=== PATIENT | male | born 1955 | race Caucasian/White ===

== ENCOUNTER 2021-02-18 21:41 | Inpatient (IN) ==
[2021-02-18 22:23] LABS: Basophils # (auto) 0.02 K/uL (0-0.2); Basophils % (auto) 0.2 %; Eosinophils # (auto) 0.11 K/uL (0-0.5); Eosinophils % (auto) 0.9 %; Hematocrit (blood only) 46.5 % (42-52); Hemoglobin 16.3 g/dL (14.0-18.0); Immature Granulocytes # (auto) 0.06 K/uL (0.00-0.02); Immature Granulocytes % (auto) 0.5 %; Lymphocytes # (auto) 1.42 K/uL (1.2-3.4); Lymphocytes % (auto) 12.1 %; Mean Corpuscular Hemoglobin 32.4 pg (25-34); Mean Corpuscular Hgb Conc 35.1 g/dL (32-36); Mean Corpuscular Volume 92.4 fL (80-100); Mean Platelet Volume 10.8 fL (7.4-10.4); Monocytes # (auto) 0.84 K/uL (0.11-0.59); Monocytes % (auto) 7.2 %; Neutrophils # (auto) 9.28 K/uL (1.4-6.5); Neutrophils % (auto) 79.1 %; Platelet Count 177 K/uL (130-400); RDW Standard Deviation 43.3 fL (36.4-46.3); Red Blood Count 5.03 M/uL (4.7-6.1); White Blood Count 11.73 K/uL (4.8-10.8)
[2021-02-18] MEDS ORDERED: SODIUM CHLORIDE 0.9% 1000ML 1,000 ML IV ONE (22:23)
[2021-02-18] MEDS ORDERED: ACETAMINOPHEN 500 MG TAB PO STA (22:23)
[2021-02-18] MEDS ORDERED: cefTRIAXone SODIUM 2,000 MG/70 ML BAG IV STA (22:25)
[2021-02-18 22:46] LABS: Alanine Aminotransferase 32 U/L (12-78); Albumin Level 3.5 gm/dl (3.4-5.0); Aspartate Aminotransferase 12 U/L (15-37); BUN Creatinine Ratio 13.2 (10-20); Blood Urea Nitrogen 23 mg/dl (7-18); Calcium 9.5 mg/dl (8.5-10.1); Carbon Dioxide 21 mmol/L (21-32); Chloride 106 mmol/L (98-107); Creatinine Clr Calc Pharmacy 59.8 ml/min; Est GFR (African American) 47.3 ml/min; Est GFR (Non-African American) 40.8 ml/min; Glucose 247 mg/dl (70-99); Magnesium 1.7 mg/dl (1.8-2.4); Potassium 4.4 mmol/L (3.5-5.1); Sodium 135 mmol/L (136-145)
[2021-02-18 22:51] LABS: Albumin Globulin Ratio 0.9 (0.9-2); Alkaline Phosphatase 38 U/L (45-117); Bilirubin,Total 0.5 mg/dl (0.2-1); Globulin 3.8 gm/dl (2.5-4.0); Total Protein 7.3 gm/dl (6.4-8.2); Troponin I < 0.015 ng/ml (0-0.045)
[2021-02-18 23:29] LABS: INR 1.1 (0.9-1.1); Partial Thromboplastin Ratio 1.1; Partial Thromboplastin Time 28.5 Seconds (21.0-31.0); Prothrombin Time 11.3 Seconds (9.0-12.0)
[2021-02-19] MEDS ORDERED: DOXYCYCLINE HYCLATE 100 MG in DEXTROSE 5% 100 ML IV STA (00:16)
[2021-02-19] MEDS ORDERED: MAGNESIUM SULFATE / D5W 1 GM/100 ML BAG IV STA (00:30)
--- NOTE | 2021-02-19 01:05 | History & Physical Report ---
Date of Service February 19, 2021 Assessment & Plan (1) History of colon polyps: (2) Sepsis: Plan: Secondary to recurrent LLE cellulitis Rule out osteomyelitis hx COPD, chronic cough symptoms as per patient hypertension, elevated secondary to illness hyperlipidemia on statin Rx DM2 on oral medications, suboptimal control as of recent hemoglobin A1c of 8.15 January 2021 hypothyroidism, euthyroid as of recent outpatient TSH CRI, creatinine better than baseline past tobacco abuse Medical telemetry CS, Doxycycline for now given risk factors for MRSA Local measures for cellulitis Follow official CT left lower leg May need dedicated MRI of left lower leg to rule out osteomyelitis Basal insulin, ISS BG goal 1 10-1 40, carb count coverage DVT prophylaxis. Heparin subcu Full code Patient's requesting update providers. Lanette Seng , contact #[phone]. Text document was generated using [email or web address] voice recognition software. It may contain grammatical or spelling errors. Kindly contact undersigned for clarification of any documentation item in question. History of Present Illness Chief Complaint: Recurrent left leg swelling Primary Care Provider: Max Rosario MD History obtained from patient, family, and records. Medical history significant for COPD, ROWDY on CPAP, hypertension, hyperlipidemia, essential tremor, DM2 on oral medications, hypothyroidism, CRI (baseline creatinine 2), past tobacco abuse. Last confinement December 2015 for UGI B secondary to gastric ulcers. Patient discharged on PPI. Patient sustained crush injury on left calf a week ago. Left lower leg crushed between 2 mowers as per patient. Outpatient ultrasound negative for DVT. Patient prescribed Bactrim and mupirocin for left leg cellulitis. Left lower leg swelling improved but was never fully resolved as per patient. 2 days ago, patient noted sudden redness, swelling of left lower leg without chest pain, S OB. No recent trauma. Fever chills noted last night. Patient brought to the ER by . IV ceftriaxone given at the ER for sepsis. 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 Allergies Allergy/AdvReac Type Severity Reaction Status Date / Time atenolol Allergy Intermediate turns Verified 02/19/21 01:42 bright yellow Home Medications Medication Instructions Recorded Confirmed Type albuterol sulfate 90 mcg/actuation 2 puff INHALATION Q4 PRN 02/01/19 02/19/21 History aerosol inhaler alprostadil 40 mcg intracavernosal 40 mcg INTRA-CAVERNOSAL UD PRN 02/01/19 02/19/21 History solution (Caverject) amlodipine 5 mg tablet 5 mg PO HS 02/01/19 02/19/21 History aspirin 81 mg tablet,delayed 81 mg PO QAM 02/01/19 02/19/21 History release atorvastatin 40 mg tablet 40 mg PO HS 02/01/19 02/19/21 History budesonide-formoterol HFA 80 2 puff INHALATION BID 02/01/19 02/19/21 History mcg-4.5 mcg/actuation aerosol inhaler dulaglutide 1.5 mg/0.5 mL 1.5 mg SUBCUT WK 02/01/19 02/19/21 History subcutaneous pen injector (Trulicity) finasteride 5 mg tablet 5 mg PO QAM 02/01/19 02/19/21 History glimepiride 4 mg tablet 4 mg PO QAM 02/01/19 02/19/21 History levothyroxine 50 mcg tablet 50 mcg PO QAM 02/01/19 02/19/21 History lisinopril 40 mg tablet 40 mg PO HS 02/01/19 02/19/21 History omega 6-vul-pwn-fish oil 60 mg-90 1 cap PO QAM 02/01/19 02/19/21 History mg-500 mg capsule (Fish Oil) pioglitazone 30 mg tablet 30 mg PO QAM 02/01/19 02/19/21 History prednisone 20 mg tablet 40 mg PO UD PRN 02/01/19 02/19/21 History sildenafil (pulm.hypertension) 20 40 - 60 mg PO UD PRN MDD 1dose 02/01/19 02/19/21 History mg tablet (Revatio) tamsulosin 0.4 mg capsule 0.4 mg PO QAM 02/01/19 02/19/21 History testosterone cypionate 200 mg/mL 200 mg IM .EVERY 14 DAYS 02/01/19 02/19/21 History intramuscular kit torsemide 100 mg tablet 50 mg PO Q OTHER DAY 02/01/19 02/19/21 History tramadol 50 mg tablet 50 mg PO Q8 PRN 02/01/19 02/19/21 History ascorbic acid (vitamin C) 1,000 mg 1 g PO DAILY 02/19/21 02/19/21 History tablet fenofibrate 54 mg tablet 54 mg PO DAILY 02/19/21 02/19/21 History sodium chloride 0.65 % nasal spray 2 spray INTRANASAL UD PRN 02/19/21 02/19/21 History aerosol (Saline Mist) Past Med/Surg History Medical History BPH (benign prostatic hyperplasia) Chronic obstructive pulmonary disease Diabetes mellitus, type 2 Hearing deficit History of bleeding ulcers History of colon polyps Hyperlipidemia Hypertension Hypothyroidism Sleep apnea cpap Tremor of left hand Surgical History History of colonoscopy History of esophagogastroduodenoscopy (EGD) History of tooth extraction Hx of vasectomy Status post LASIK surgery of both eyes Family History Grandmother (Maternal) Family history of diabetes mellitus Other No family history of adverse response to anesthesia Social History Smoking Status: Former smoker Tobacco Type: Cigarettes Second Hand Exposure: Yes (parents smoked); Hx Alcohol Use: No Hx Substance Use: No Preferred Language: Argentine Communication Ability: Effective Mill[place] Helper Required: No Beliefs That Will Affect Care: None Current Living Situation: Spouse and Family Current Living Situation Comment: Lives with and 2 children Other Information That Helps Us Care for You: No Feels Safe at Home: Yes Safety Concerns: Feels Safe At This Time Assistive Devices: CPAP and Glasses Review of Systems Review of Systems: As per HPI, all 10 systems reviewed, all other ROS negative Physical Exam Physical Exam: GENERAL: uncomfortable, pleasant, morbidly obese, no respiratory distress SKIN: normal color, warm HEENT: [place] palpebral conjunctivae, no ptosis, dry buccal mucosa NECK : Supple, short neck, no tenderness CHEST : Decreased breath sounds, no tenderness HEART : Tachycardic, no obvious murmurs ABDOMEN: Marked distention, nontender EXTREMITIES : Tender induration RLE with some crusting, no other conspicuous deformities noted NEUROLOGIC : Coherent, no facial asymmetry, no other gross focality Results & Data Results & Data ([facility]) Vital Signs (Past 12 Hours) Vital Signs Temp Pulse Resp BP Pulse Ox 02/19/21 00:41 37.7 C H 02/19/21 00:30 108 H 21 142/75 H 94 02/18/21 23:30 37.9 C H 111 H 23 107/75 93 02/18/21 21:47 38.3 C H 127 H 28 H 166/80 H 95 Laboratory Results Laboratory Results WBC 11.73 K/uL (4.8-10.8) H 02/18/21 22:05 RBC 5.03 M/uL (4.7-6.1) 02/18/21 22:05 Hgb 16.3 g/dL (14.0-18.0) 02/18/21 22:05 Hct 46.5 % (42-52) 02/18/21 22:05 MCV 92.4 fL (80-100) 02/18/21 22:05 MCH 32.4 pg (25-34) 02/18/21 22:05 MCHC 35.1 g/dL (32-36) 02/18/21 22:05 RDW Std Deviation 43.3 fL (36.4-46.3) 02/18/21 22:05 RDW Coeff of [place]quel 13.0 % (11.5-14.5) 02/18/21 22:05 Plt Count 177 K/uL (130-400) 02/18/21 22:05 MPV 10.8 fL (7.4-10.4) H 02/18/21 22:05 Immature Gran % (Auto) 0.5 % 02/18/21 22:05 Neut % (Auto) 79.1 % 02/18/21 22:05 Lymph % (Auto) 12.1 % 02/18/21 22:05 [place] % (Auto) 7.2 % 02/18/21 22:05 Eos % (Auto) 0.9 % 02/18/21 22:05 Baso % (Auto) 0.2 % 02/18/21 22:05 Neut # (Auto) 9.28 K/uL (1.4-6.5) H 02/18/21 22:05 Lymph # (Auto) 1.42 K/uL (1.2-3.4) 02/18/21 22:05 [place] # (Auto) 0.84 K/uL (0.11-0.59) H 02/18/21 22:05 Eos # (Auto) 0.11 K/uL (0-0.5) 02/18/21 22:05 Baso # (Auto) 0.02 K/uL (0-0.2) 02/18/21 22:05 Immature Gran # (Auto) 0.06 K/uL (0.00-0.02) H 02/18/21 22:05 PT 11.3 Seconds (9.0-12.0) 02/18/21 23:04 INR 1.1 (0.9-1.1) 02/18/21 23:04 APTT 28.5 Seconds (21.0-31.0) 02/18/21 23:04 PTT Ratio 1.1 02/18/21 23:04 Sodium 135 mmol/L (136-145) L 02/18/21 22:05 Potassium 4.4 mmol/L (3.5-5.1) 02/18/21 22:05 Chloride 106 mmol/L (98-107) 02/18/21 22:05 Carbon Dioxide 21 mmol/L (21-32) 02/18/21 22:05 Anion Gap 8.0 (3-11) 02/18/21 22:05 BUN 23 mg/dl (7-18) H 02/18/21 22:05 Creatinine 1.74 mg/dl (0.6-1.4) H 02/18/21 22:05 Est Cr Clr Drug Dosing 59.8 ml/min 02/18/21 22:05 Est GFR ( Amer) 47.3 ml/min 02/18/21 22:05 Est GFR (Non-Af Amer) 40.8 ml/min 02/18/21 22:05 BUN/Creatinine Ratio 13.2 (10-20) 02/18/21 22:05 Glucose 247 mg/dl (70-99) H 02/18/21 22:05 Lactate 1.9 mmol/L (0.4-2.0) 02/18/21 23:04 Calcium 9.5 mg/dl (8.5-10.1) 02/18/21 22:05 Magnesium 1.7 mg/dl (1.8-2.4) L 02/18/21 22:05 Total Bilirubin 0.5 mg/dl (0.2-1) 02/18/21 22:05 AST 12 U/L (15-37) L 02/18/21 22:05 ALT 32 U/L (12-78) 02/18/21 22:05 Alkaline Phosphatase 38 U/L (45-117) L 02/18/21 22:05 Troponin I < 0.015 ng/ml (0-0.045) 02/18/21 22:05 Total Protein 7.3 gm/dl (6.4-8.2) 02/18/21 22:05 Albumin 3.5 gm/dl (3.4-5.0) 02/18/21 22:05 Globulin 3.8 gm/dl (2.5-4.0) 02/18/21 22:05 Albumin/Globulin Ratio 0.9 (0.9-2) 02/18/21 22:05 COVID-19 Eval Order Covid19 at [facility] 02/18/21 22:40 SARS-CoV-2 (PCR) NEGATIVE (Negative) 02/18/21 22:40 Diagnostic Findings LLE venous ultrasound initial read: No evidence of DVT CT left tibia/fibula initial read: Subcutaneous soft tissue edema suggestive of venous insufficiencyor cellulitis. No fluid collection or soft tissue gas. Chest x-ray as per my interpretation cardiomegaly EKG as per my interpretation : Rate 125, sinus tachycardia, normal axis, T wave abnormalities inferior leads
[2021-02-19] MEDS ORDERED: INSULIN GLARGINE SOLOSTAR 100 UNITS/ML 3 ML PEN SC STA (01:09)
--- NOTE | 2021-02-19 01:21 | Emergency Department Note ---
History of Present Illness General Chief complaint: Swelling/Edema to Extremity Stated complaint: SWOLLEN L LEG Time Seen by Provider: 02/18/21 22:11 History of Present Illness Maximum Pain Intensity: 10 This 65-year-old presents to the ER complaining of left lower leg cellulitis with fever Location: Left lower leg Quality: Painful Severity: Moderate Duration: Past 2 days Timing: Started few days ago Context: Patient was concerned and came in Modifying factors: better with rest; worse with activity Patient denies chest pain, dyspnea, abdominal pain, vomiting, diarrhea. Home Medications Medication Instructions Recorded Confirmed Type albuterol sulfate 90 mcg/actuation 2 puff INHALATION Q4 PRN 02/01/19 02/07/19 History aerosol inhaler alprostadil 40 mcg intracavernosal 40 mcg INTRA-CAVERNOSAL UD PRN 02/01/19 02/01/19 History solution (Caverject) amlodipine 5 mg tablet 5 mg PO HS 02/01/19 02/07/19 History ascorbic acid (vitamin C) 500 mg 1,000 mg PO QAM 02/01/19 02/07/19 History tablet (Vitamin C) aspirin 81 mg tablet,delayed 81 mg PO QAM 02/01/19 02/07/19 History release atorvastatin 40 mg tablet 40 mg PO HS 02/01/19 02/07/19 History budesonide-formoterol HFA 80 2 puff INHALATION BID 02/01/19 02/01/19 History mcg-4.5 mcg/actuation aerosol inhaler clobetasol 0.05 % topical cream 1 applic TOPICAL DAILY PRN 02/01/19 02/07/19 History dulaglutide 1.5 mg/0.5 mL 1.5 mg SUBCUT WK 02/01/19 02/07/19 History subcutaneous pen injector (Trulicity) fenofibrate micronized 134 mg 134 mg PO QAM 02/01/19 02/07/19 History capsule finasteride 5 mg tablet 5 mg PO QAM 02/01/19 02/07/19 History glimepiride 4 mg tablet 4 mg PO QAM 02/01/19 02/07/19 History levothyroxine 50 mcg tablet 50 mcg PO QAM 02/01/19 02/07/19 History lisinopril 40 mg tablet 40 mg PO HS 02/01/19 02/07/19 History mometasone 50 mcg/actuation nasal 2 spray INTRANASAL DAILY PRN 02/01/19 02/07/19 History spray omega 6-box-chy-fish oil 60 mg-90 1 cap PO QAM 02/01/19 02/07/19 History mg-500 mg capsule (Fish Oil) omeprazole 40 mg capsule,delayed 40 mg PO QAM 02/01/19 02/07/19 History release pioglitazone 30 mg tablet 30 mg PO QAM 02/01/19 02/07/19 History prednisone 20 mg tablet 40 mg PO UD PRN 02/01/19 02/07/19 History sildenafil (pulm.hypertension) 20 20 mg PO UD PRN 02/01/19 02/01/19 History mg tablet (Revatio) tamsulosin 0.4 mg capsule 0.4 mg PO QAM 02/01/19 02/07/19 History testosterone cypionate 200 mg/mL 200 mg IM UD 02/01/19 02/07/19 History intramuscular kit torsemide 100 mg tablet 100 mg PO Q OTHER DAY 02/01/19 02/07/19 History tramadol 50 mg tablet 50 mg PO Q6H PRN 02/01/19 02/01/19 History Allergies Allergy/AdvReac Type Severity Reaction Status Date / Time atenolol Allergy Intermediate turns Verified 02/07/19 10:42 bright yellow Past Med/Surg History Medical History BPH (benign prostatic hyperplasia) Chronic obstructive pulmonary disease Diabetes mellitus, type 2 Hearing deficit History of bleeding ulcers History of colon polyps Hyperlipidemia Hypertension Hypothyroidism Sleep apnea cpap Tremor of left hand Surgical History History of colonoscopy History of esophagogastroduodenoscopy (EGD) History of tooth extraction Hx of vasectomy Status post LASIK surgery of both eyes Family History Grandmother (Maternal) Family history of diabetes mellitus Other No family history of adverse response to anesthesia Social History Smoking Status: Former smoker Tobacco Type: Cigarettes Second Hand Exposure: Yes (parents smoked); Hx Alcohol Use: Yes Alcohol type: beer Hx Substance Use: No Preferred Language: Syriac Communication Ability: Effective 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 Beliefs That Will Affect Care: None Current Living Situation: Spouse and Family Current Living Situation Comment: Lives with and 2 children Feels Safe at Home: Yes Assistive Devices: CPAP and Glasses Review of Systems A total of 10 systems reviewed and were otherwise negative Physical Exam Vital Signs Vital Signs - 24 hr 02/18/21 21:47 02/18/21 23:30 02/19/21 00:30 Temperature 38.3 C H 37.9 C H Temperature Source Temporal Artery Scan Oral Pulse Rate 127 H 111 H 108 H Respiratory Rate 28 H 23 21 Blood Pressure 166/80 H 107/75 142/75 H Blood Pressure Mean 108 85 97 Pulse Oximetry 95 93 94 Oxygen Delivery Method Room Air Sepsis Recent Fever Within 48 Hours Yes Sepsis New/Unexplained Change in Mental Status No Sepsis Action Taken by Nursing Physician Notified 02/19/21 00:41 Temperature 37.7 C H Temperature Source Oral Pulse Rate Respiratory Rate Blood Pressure Blood Pressure Mean Pulse Oximetry Oxygen Delivery Method Sepsis Recent Fever Within 48 Hours Sepsis New/Unexplained Change in Mental Status Sepsis Action Taken by Nursing VITALS: Vitals are noted on the nurse's note and reviewed by myself. Vital signs febrile. GENERAL: Pleasant male mildly ill-appearing, in no acute distress, non diaphoretic, well-developed well-nourished. SKIN: Left lower leg cellulitis, the rest of the skin was without rashes, erythema, edema, or bruising. There is no tenting of the skin. Capillary reflex less than 2 seconds. HEAD: Normocephalic atraumatic. EARS: External auditory canals clear, EYES: Pupils equal round and reactive to light and accommodation. Conjunctivae without injection, sclerae without icterus. Extraocular movements intact. NOSE: Patent, turbinates without inflammation or discharge. MOUTH: Mucous membranes moist. Pharynx without erythema or exudate. Uvula midline. Airway patent. Tongue does not deviate. NECK: Supple without nuchal rigidity. No lymphadenopathy. No thyromegaly. Cervical spine is nontender. No JVD. HEART: Regular rate and rhythm LUNGS: Clear to auscultation bilaterally without wheezes, rales or rhonchi. No retractions or accessory muscle use. ABDOMEN: Positive bowel sounds x 4. Normal tympanic percussion. Soft, nontender, without masses or organomegaly. Flores sign negative. No guarding or rebound tenderness. No CVA tenderness MUSCULOSKELETAL: No muscle atrophy, noted. Left lower leg cellulitis. NEURO: Patient was alert and oriented to person place and time. Normal sensation to light and sharp touch. No focal neurological deficits. Course Administered Medications Doxycycline Hyclate 100 mg/ (Dextrose) 110 mls @ 50 mls/hr IV NOW STA Stop: 02/19/21 02:27 Last Admin: 02/19/21 00:38 Dose: 50 mls/hr Documented by: [id number] Magnesium Sulfate/Dextrose (Magnesium Sulfate / D5w) 1 gm in 100 mls @ 50 mls/h r IV ONE STA Stop: 02/19/21 02:29 Last Admin: 02/19/21 00:38 Dose: 50 mls/hr Documented by: [id number] Discontinued Medications Acetaminophen (Acetaminophen 500 Mg Tab) 1,000 mg PO NOW STA Stop: 02/18/21 22:24 Last Admin: 02/18/21 22:33 Dose: 1,000 mg Documented by: [id number] Sodium Chloride (Nss 1000ml) 1,000 mls @ 999 mls/hr IV .Q1H1M ONE Stop: 02/18/21 23:23 Last Infusion: 02/18/21 23:33 Dose: 0 mls/hr Documented by: [id number] Admin: 02/18/21 22:33 Dose: 999 mls/hr Documented by: [id number] Ceftriaxone Sodium (Rocephin) 2,000 mg in 70 mls @ 140 mls/hr IV NOW STA Stop: 02/18/21 22:54 Last Infusion: 02/18/21 23:30 Dose: 0 mls/hr Documented by: [id number] Infusion: 02/18/21 23:15 Dose: 140 mls/hr Documented by: [id number] Infusion: 02/18/21 22:49 Dose: 0 mls/hr Documented by: [id number] Admin: 02/18/21 22:35 Dose: 140 mls/hr Documented by: [id number] Medical Decision Making Medical Records Attestation: I reviewed the patient's medical records. Home Medications Current Medication List: was personally reviewed by me Laboratory Data Attestation: I reviewed the patient's lab results. Result diagrams: 02/18/21 22:05 02/18/21 22:05 Lab Results 02/18/21 02/18/21 02/18/21 Range/Units 22:05 22:05 22:40 WBC 11.73 H (4.8-10.8) K/uL RBC 5.03 (4.7-6.1) M/uL Hgb 16.3 (14.0-18.0) g/dL Hct 46.5 (42-52) % MCV 92.4 (80-100) fL MCH 32.4 (25-34) pg MCHC 35.1 (32-36) g/dL RDW Std Deviation 43.3 (36.4-46.3) fL RDW Coeff of Racquel 13.0 (11.5-14.5) % Plt Count 177 (130-400) K/uL MPV 10.8 H (7.4-10.4) fL Immature Gran % (Auto) 0.5 % Neut % (Auto) 79.1 % Lymph % (Auto) 12.1 % Archuleta % (Auto) 7.2 % Eos % (Auto) 0.9 % Baso % (Auto) 0.2 % Neut # (Auto) 9.28 H (1.4-6.5) K/uL Lymph # (Auto) 1.42 (1.2-3.4) K/uL Archuleta # (Auto) 0.84 H (0.11-0.59) K/uL Eos # (Auto) 0.11 (0-0.5) K/uL Baso # (Auto) 0.02 (0-0.2) K/uL Immature Gran # (Auto) 0.06 H (0.00-0.02) K/uL PT (9.0-12.0) Seconds INR (0.9-1.1) APTT (21.0-31.0) Seconds PTT Ratio Sodium 135 L (136-145) mmol/L Potassium 4.4 (3.5-5.1) mmol/L Chloride 106 (98-107) mmol/L Carbon Dioxide 21 (21-32) mmol/L Anion Gap 8.0 (3-11) BUN 23 H (7-18) mg/dl Creatinine 1.74 H (0.6-1.4) mg/dl Est Cr Clr Drug Dosing 59.8 ml/min Est GFR ( Amer) 47.3 ml/min Est GFR (Non-Af Amer) 40.8 ml/min BUN/Creatinine Ratio 13.2 (10-20) Glucose 247 H (70-99) mg/dl Lactate (0.4-2.0) mmol/L Calcium 9.5 (8.5-10.1) mg/dl Magnesium 1.7 L (1.8-2.4) mg/dl Total Bilirubin 0.5 (0.2-1) mg/dl AST 12 L (15-37) U/L ALT 32 (12-78) U/L Alkaline Phosphatase 38 L (45-117) U/L Troponin I < 0.015 (0-0.045) ng/ml Total Protein 7.3 (6.4-8.2) gm/dl Albumin 3.5 (3.4-5.0) gm/dl Globulin 3.8 (2.5-4.0) gm/dl Albumin/Globulin Ratio 0.9 (0.9-2) COVID-19 Eval Order Covid19 at [facility] SARS-CoV-2 (PCR) (Negative) 02/18/21 02/18/21 02/18/21 Range/Units 22:40 23:04 23:04 WBC (4.8-10.8) K/uL RBC (4.7-6.1) M/uL Hgb (14.0-18.0) g/dL Hct (42-52) % MCV (80-100) fL MCH (25-34) pg MCHC (32-36) g/dL RDW Std Deviation (36.4-46.3) fL RDW Coeff of Racquel (11.5-14.5) % Plt Count (130-400) K/uL MPV (7.4-10.4) fL Immature Gran % (Auto) % Neut % (Auto) % Lymph % (Auto) % Archuleta % (Auto) % Eos % (Auto) % Baso % (Auto) % Neut # (Auto) (1.4-6.5) K/uL Lymph # (Auto) (1.2-3.4) K/uL Archuleta # (Auto) (0.11-0.59) K/uL Eos # (Auto) (0-0.5) K/uL Baso # (Auto) (0-0.2) K/uL Immature Gran # (Auto) (0.00-0.02) K/uL PT 11.3 (9.0-12.0) Seconds INR 1.1 (0.9-1.1) APTT 28.5 (21.0-31.0) Seconds PTT Ratio 1.1 Sodium (136-145) mmol/L Potassium (3.5-5.1) mmol/L Chloride (98-107) mmol/L Carbon Dioxide (21-32) mmol/L Anion Gap (3-11) BUN (7-18) mg/dl Creatinine (0.6-1.4) mg/dl Est Cr Clr Drug Dosing ml/min Est GFR ( Amer) ml/min Est GFR (Non-Af Amer) ml/min BUN/Creatinine Ratio (10-20) Glucose (70-99) mg/dl Lactate 1.9 (0.4-2.0) mmol/L Calcium (8.5-10.1) mg/dl Magnesium (1.8-2.4) mg/dl Total Bilirubin (0.2-1) mg/dl AST (15-37) U/L ALT (12-78) U/L Alkaline Phosphatase (45-117) U/L Troponin I (0-0.045) ng/ml Total Protein (6.4-8.2) gm/dl Albumin (3.4-5.0) gm/dl Globulin (2.5-4.0) gm/dl Albumin/Globulin Ratio (0.9-2) COVID-19 Eval Order SARS-CoV-2 (PCR) NEGATIVE (Negative) Imaging Data Attestation: I personally reviewed and interpreted this imaging study as follow s: MDM Narrative Prior records/ancillary studies reviewed. Triage Nursing notes reviewed. Additional history obtained from nursing. The patient's history was concerning for fever. Differential diagnosis: Etiologies such as viral syndrome, otitis, pharyngitis, pneumonia, influenza, meningitis, urinary tract infection, sepsis, bacteremia, as well as others were entertained. Physical examination: As above ER treatment provided: An order was placed for continuous cardiac monitoring. The monitor shows a rate of 60-1 50 with a sinus rhythm. IV fluids, Rocephin, Tylenol On reassessment the patient felt better. Diagnostics interpreted by me: ECG: Ordered for tachycardia EKG: Normal sinus, T wave inversions in the inferior leads, poor baseline, rate of 125. Impression sinus tachycardia with T wave inversions the inferior leads interpreted by myself I think arrhythmia is unlikely. EKG shows no interval abnormalities such as QT prolongation or WPW. There are no findings to suggest Brugada syndrome. Cardiac monitoring in the emergency department reveals no tachycardic or bradycardic dysrhythmia. Hypertrophic cardiomyopathy was considered but there are no clear historical elements pointing toward this. EKG is not suggestive. The QRS voltage is not extremely large and there are no suggestive Q waves. The labs revealed leukocytosis, negative Covid, blood cultures pending Imaging studies: Ultrasound negative for DVT Chest x-ray with no acute consolidation, pneumothorax or free air per my tribulation Consultation: A consultation was placed with Dr. Juarez. The case was discussed and diagnostics were reviewed. The patient was evaluated in the ER for further treatment. This appears to be consistent with left lower leg cellulitis who is febrile. Patient started antibiotics. Medicine was consulted. He will be evaluated for admission. Ultrasound was negative for DVT.. By the evaluation outlined above emergent etiologies such as otitis, pharyngitis, pneumonia, meningitis, urinary tract infection, sepsis, bacteremia, as well as others were deemed relatively unlikely. The pt informed about the findings as listed above. All questions were answered and pleased with the treatment. The chart was completed utilizing [employer] Speech voice recognition software. Grammatical errors, random word insertions, pronoun errors, and incomplete sentences are an occassional consequence of this system due to software limitations, ambient noise, and hardware issues. Any formal questions or concerns about the content, text, or information contained within the body of this dictation should be directly addressed to the physician diet assistant for clarification. Impression & Plan Cellulitis of left leg Discharge Plan Visit Data Chief Complaint: Swelling/Edema to Extremity Stated Complaint: SWOLLEN L LEG ED Provider: Rod Solorzano ED Midlevel Provider: Lauren Sierra Discharge Problem: Cellulitis of left leg Patient Disposition: Admitted As Inpatient Condition: Fair Forms Stand Alone Forms: My [facility] [employer] Prescriptions Prescriptions: No Action atorvastatin 40 mg Tablet 40 mg PO HS RF: 0 prednisone 20 mg Tablet 40 mg PO UD PRN (Reason: copd rescue kit) RF: 0 clobetasol 0.05 % Cream 1 applic TOPICAL DAILY PRN (Reason: Rash) RF: 0 amlodipine 5 mg Tablet 5 mg PO HS RF: 0 omeprazole 40 mg Capsule,Delayed Release(Dr/Ec) 40 mg PO QAM RF: 0 aspirin 81 mg Tablet,Delayed Release (Dr/Ec) 81 mg PO QAM RF: 0 tramadol 50 mg Tablet 50 mg PO Q6H PRN (Reason: Pain) RF: 0 fenofibrate micronized 134 mg Capsule 134 mg PO QAM RF: 0 torsemide 100 mg Tablet 100 mg PO Q OTHER DAY RF: 0 ascorbic acid (vitamin C) [Vitamin C] 500 mg Tablet 1,000 mg PO QAM RF: 0 Caverject 40 mcg Recon Soln 40 mcg INTRA-CAVERNOSAL UD PRN (Reason: Sexual Activity) RF: 0 tamsulosin 0.4 mg Capsule 0.4 mg PO QAM RF: 0 levothyroxine 50 mcg Tablet 50 mcg PO QAM RF: 0 glimepiride 4 mg Tablet 4 mg PO QAM RF: 0 mometasone 50 mcg/actuation Nerinx,Non-Aerosol 2 spray INTRANASAL DAILY PRN (Reason: Nasal Congestion) RF: 0 albuterol sulfate 90 mcg/actuation Hfa Aerosol Inhaler 2 puff INHALATION Q4 PRN (Reason: Shortness Of Breath) RF: 0 pioglitazone 30 mg Tablet 30 mg PO QAM RF: 0 lisinopril 40 mg Tablet 40 mg PO HS RF: 0 finasteride 5 mg Tablet 5 mg PO QAM RF: 0 sildenafil (pulm.hypertension) [Revatio] 20 mg Tablet 20 mg PO UD PRN (Reason: Sexual Activity) RF: 0 budesonide-formoterol 80-4.5 mcg/actuation Hfa Aerosol Inhaler 2 puff INHALATION BID RF: 0 omega 3-rqp-tmp-fish oil [Fish Oil] 60-90-500 mg Capsule 1 cap PO QAM RF: 0 Trulicity 1.5 mg/0.5 mL Pen Injector 1.5 mg SUBCUT WK RF: 0 testosterone cypionate 200 mg/mL Kit 200 mg IM UD RF: 0 Referrals Referrals: Max Rosario MD [Primary Care Provider] -
[2021-02-19 01:22] LABS: Creatine Kinase 42 U/L (39-308)
[2021-02-19] MEDS ORDERED: SODIUM CHLORIDE 0.9% 1000ML 1,000 ML IV SCH (02:07)
[2021-02-19] MEDS ORDERED: GLUCOSE 40% GEL 15 GM TUBE PO PRN (02:07)
[2021-02-19] MEDS ORDERED: PROMETHAZINE HCL 12.5 MG in SODIUM CHLORIDE 0.9% 50 ML IV PRN (02:07)
[2021-02-19] MEDS ORDERED: ACETAMINOPHEN 325 MG TAB PO PRN (02:07)
[2021-02-19] MEDS ORDERED: CARBOHYDRATES FOR HYPOGLYCEMIA PO PRN (02:07)
[2021-02-19] MEDS ORDERED: HYDROmorphone INJ 0.5 MG/0.5 ML SYR IV PRN (02:07)
[2021-02-19] MEDS ORDERED: DEXTROSE 50% 50 ML SYRINGE IV PRN (02:07)
[2021-02-19] MEDS ORDERED: GLUCAGON FOR INJ 1 MG VIAL SQ PRN (02:07)
[2021-02-19] MEDS ORDERED: GLUCOSE 10 TABS/TUBE PO PRN (02:07)
[2021-02-19] MEDS: INSULIN ASPART 100 UNITS/ML 3 ML PEN SC SCH ×6 (02:59→21:53)
[2021-02-19] MEDS ORDERED: SODIUM CHLORIDE 0.9% 1000ML 1,000 ML IV ONE (04:47)
[2021-02-19] MEDS: HEPARIN SOD 5,000 UNIT/0.5 ML VIAL SQ SCH ×3 (05:22→21:54)
[2021-02-19] MEDS: LEVOTHYROXINE SODIUM 50 MCG TABLET PO SCH (05:23)
[2021-02-19 05:34] LABS: Basophils # (auto) 0.01 K/uL (0-0.2); Basophils % (auto) 0.1 %; Eosinophils # (auto) 0.02 K/uL (0-0.5); Eosinophils % (auto) 0.2 %; Hemoglobin 15.3 g/dL (14.0-18.0); Immature Granulocytes # (auto) 0.05 K/uL (0.00-0.02); Immature Granulocytes % (auto) 0.4 %; Lymphocytes # (auto) 1.34 K/uL (1.2-3.4); Lymphocytes % (auto) 10.7 %; Mean Corpuscular Hemoglobin 31.9 pg (25-34); Mean Corpuscular Hgb Conc 34.8 g/dL (32-36); Mean Corpuscular Volume 91.9 fL (80-100); Mean Platelet Volume 10.8 fL (7.4-10.4); Monocytes % (auto) 7.2 %; Neutrophils # (auto) 10.16 K/uL (1.4-6.5); Neutrophils % (auto) 81.4 %; Platelet Count 171 K/uL (130-400); RDW Coefficient of Variation 13.1 % (11.5-14.5); RDW Standard Deviation 43.9 fL (36.4-46.3); Red Blood Count 4.79 M/uL (4.7-6.1); White Blood Count 12.48 K/uL (4.8-10.8)
[2021-02-19 06:06] LABS: BUN Creatinine Ratio 10.9 (10-20); Creatinine Clr Calc Pharmacy 54.7 ml/min; Est GFR (African American) 42.5 ml/min; Est GFR (Non-African American) 36.7 ml/min; Potassium 4.8 mmol/L (3.5-5.1)
--- NOTE | 2021-02-19 07:39 | Ultrasound Report ---
US venous doppler LE LT INDICATION: MN ^pain/swelling. COMPARISON: None available at the time of this dictation. TECHNIQUE: Left lower extremity real-time compression venous ultrasound with Color Doppler imaging. Utilizing real-time ultrasonic imaging multiple real time high-resolution ultrasonic images with comp ression and noncompression maneuvers of the deep venous system in addition to color doppler imaging w ere performed from the common femoral vein through the proximal calf veins. FINDINGS: Currently there is normal compressibility of the deep venous system from the common femoral vein thro ugh the proximal calf veins. No current evidence of acute thrombosis is identified. Impression: No evidence of deep venous thrombus. ACT 112: Negative or not required by law. Electronically signed by: Gino Davis M.D. 02/19/2021 7:38 AM
--- NOTE | 2021-02-19 07:58 | XRay Report ---
XR chest 1V portable HISTORY: Sepsis COMPARISON: None. FINDINGS: No pneumothorax. No pleural effusions. The heart is mildly enlarged. No focal lung consolid ations to suggest pneumonia. No evidence for pulmonary edema. Hazy appearance of the right lung base favors prominent mediastinal fat. IMPRESSION: Mild cardiomegaly. Otherwise, no acute process within the chest. ACT 112: Negative or not required by law. Electronically signed by: Senthil Dennis M.D. 02/19/2021 7:57 AM
[2021-02-19] MEDS: ASPIRIN 81 MG ECTAB PO SCH (08:20)
[2021-02-19] MEDS: TAMSULOSIN HCL 0.4 MG CAP PO SCH (08:20)
[2021-02-19] MEDS: FINASTERIDE 5 MG TAB PO SCH (08:20)
[2021-02-19] MEDS: FENOFIBRATE NANOCRYSTALLIZED 48 MG TABLET PO SCH (08:21)
--- NOTE | 2021-02-19 08:40 | CT Scan Report ---
CT tib/fib LT wo con INDICATION: MN ^recurrent leg swelling ro abscess TECHNIQUE: Multidetector row helical CT of the left tibia and fibula was performed without intravenou s contrast. Coronal and sagittal reformations were obtained. Automated dose lowering techniques and/o r adjustment according to patient size were utilized for this examination. Comparison: None available at the time of this dictation. FINDINGS: The osseous structures are without fracture or dislocation. No joint effusion is seen. The joint spa billy are maintained. Diffuse soft tissue swelling is seen in the leg along with skin thickening. No dr ainable fluid collection is seen. IMPRESSION: Soft tissue swelling about the leg without evidence of drainable fluid collection. ACT 112: Negative or not required by law. Electronically signed by: Gino Davis M.D. 02/19/2021 8:38 AM
[2021-02-19] MEDS ORDERED: INSULIN GLARGINE SOLOSTAR 100 UNITS/ML 3 ML PEN SC SCH (09:00)
[2021-02-19] MEDS: INSULIN GLARGINE SOLOSTAR 100 UNITS/ML 3 ML PEN SC SCH ×2 (09:43→21:54)
[2021-02-19] MEDS: SODIUM CHLORIDE 0.9% 1000ML 1,000 ML IV SCH ×2 (09:45→17:22)
[2021-02-19] MEDS: traMADol HCL 50 MG TABLET PO PRN ×2 (10:03→20:24)
[2021-02-19] MEDS: DOXYCYCLINE HYCLATE 100 MG CAP PO SCH (13:29)
--- NOTE | 2021-02-19 17:48 | Electrocardiogram Report ---
Test Reason : Blood Pressure : / mmHG Vent. Rate : 125 BPM Atrial Rate : 125 BPM P-R Int : 158 ms QRS Dur : 110 ms QT Int : 296 ms P-R-T Axes : 073 063 026 degrees QTc Int : 427 ms Sinus tachycardia T wave abnormality, consider inferior ischemia Abnormal ECG When compared with ECG of 14-DEC-2015 05:04, T wave inversion now evident in Inferior leads Confirmed by Олег Hicks ([id number]) on 02/19/2021 5:48:23 PM Referred By: REFERRED SELF Confirmed By:Kalia Hicks
[2021-02-19] MEDS: ceFAZolin 2000MG 2,000 MG/15 ML SYR IV SCH (18:03)
[2021-02-19 18:18] LABS: Appearance Urine Clear (Clear); Bacteria Urine Automated Negative (Negative); Bilirubin Urine Negative (Negative); Blood Urine Negative (Negative); Cast Urine Automated 0 /lpf (0-5); Color Urine Yellow; Glucose Urine UA Trace (Negative); Ketones Urine Negative (Negative); Leukocyte Esterase Urine Negative (Negative); Nitrite Urine Negative (Negative); Protein Urine 1+ (Negative); RBC Urine Automated 0-4 /hpf (0-4); Specific Gravity Urine 1.014 (1.000-1.030); Urobilinogen Urine Negative (Negative); pH Urine 5.5 (4.5-7.5)
[2021-02-19] MEDS: lisinopril 40 MG TAB PO SCH (20:28)
[2021-02-19] MEDS: amLODIPine BESYLATE 5 MG TAB PO SCH (20:28)
[2021-02-19] MEDS: ATORVASTATIN 40 MG TAB PO SCH (20:28)
[2021-02-20] MEDS: DOXYCYCLINE HYCLATE 100 MG CAP PO SCH ×2 (00:02→12:16)
[2021-02-20] MEDS: ceFAZolin 2000MG 2,000 MG/15 ML SYR IV SCH ×3 (01:41→17:34)
[2021-02-20] MEDS: SODIUM CHLORIDE 0.9% 1000ML 1,000 ML IV SCH (01:42)
[2021-02-20] MEDS: HEPARIN SOD 5,000 UNIT/0.5 ML VIAL SQ SCH ×3 (06:22→21:40)
[2021-02-20] MEDS: LEVOTHYROXINE SODIUM 50 MCG TABLET PO SCH (06:22)
[2021-02-20 07:38] LABS: Basophils # (auto) 0.01 K/uL (0-0.2); Basophils % (auto) 0.1 %; Eosinophils # (auto) 0.07 K/uL (0-0.5); Eosinophils % (auto) 0.9 %; Hematocrit (blood only) 39.7 % (42-52); Hemoglobin 13.6 g/dL (14.0-18.0); Immature Granulocytes # (auto) 0.03 K/uL (0.00-0.02); Immature Granulocytes % (auto) 0.4 %; Lymphocytes # (auto) 1.22 K/uL (1.2-3.4); Lymphocytes % (auto) 16.2 %; Mean Corpuscular Hemoglobin 31.7 pg (25-34); Mean Corpuscular Hgb Conc 34.3 g/dL (32-36); Mean Corpuscular Volume 92.5 fL (80-100); Mean Platelet Volume 10.7 fL (7.4-10.4); Monocytes # (auto) 0.77 K/uL (0.11-0.59); Monocytes % (auto) 10.2 %; Neutrophils # (auto) 5.45 K/uL (1.4-6.5); Neutrophils % (auto) 72.2 %; Platelet Count 162 K/uL (130-400); RDW Coefficient of Variation 13.4 % (11.5-14.5); RDW Standard Deviation 45.1 fL (36.4-46.3); Red Blood Count 4.29 M/uL (4.7-6.1); White Blood Count 7.55 K/uL (4.8-10.8)
[2021-02-20 07:55] LABS: BUN Creatinine Ratio 12.2 (10-20); Calcium 8.4 mg/dl (8.5-10.1); Creatinine Clr Calc Pharmacy 56.3 ml/min; Est GFR (African American) 43.9 ml/min; Est GFR (Non-African American) 37.9 ml/min; Potassium 4.5 mmol/L (3.5-5.1)
[2021-02-20] MEDS: INSULIN ASPART 100 UNITS/ML 3 ML PEN SC SCH ×4 (08:32→21:41)
[2021-02-20] MEDS: INSULIN GLARGINE SOLOSTAR 100 UNITS/ML 3 ML PEN SC SCH ×2 (08:34→21:40)
[2021-02-20] MEDS: TAMSULOSIN HCL 0.4 MG CAP PO SCH (08:34)
[2021-02-20] MEDS: ASPIRIN 81 MG ECTAB PO SCH (08:34)
[2021-02-20] MEDS: FINASTERIDE 5 MG TAB PO SCH (08:34)
[2021-02-20] MEDS: FENOFIBRATE NANOCRYSTALLIZED 48 MG TABLET PO SCH (08:34)
[2021-02-20] MEDS: traMADol HCL 50 MG TABLET PO PRN ×2 (12:15→22:25)
--- NOTE | 2021-02-20 16:40 | Hospitalist Progress Note ---
Date of Service February 20, 2021 Assessment & Plan (1) History of colon polyps: (2) Sepsis: Plan: Secondary to recurrent LLE cellulitis without any ulceration and/or obvious skin break Rule out osteomyelitis-CT did not show any evidence of osteomyelitis Started with intravenous doxycycline Added cefazolin Blood culture is growing gram-negative bacilli in 1 out of 2 bottles We will continue current antibiotics hx COPD, chronic cough symptoms as per patient Does not have any acute exacerbation We will continue his home medications Hypertension, elevated secondary to illness Blood pressure remains on the lower side Hyperlipidemia on statin Rx DM2 on oral medications, suboptimal control as of recent hemoglobin A1c of 8.15 January 2021 Basal insulin, ISS BG goal 1 10-1 40, carb count coverage Hypothyroidism, euthyroid as of recent outpatient TSH CRI, creatinine better than baseline past tobacco abuse DVT prophylaxis. Heparin subcu Full code Patient's requesting update providers. Lanette Ellsworth , contact #[phone]. Admission and Anticipated Discharge Date Admission Date: February 19, 2021 Subjective 02/20/2021 The patient was seen and examined in medical telemetry unit His leg pain and swelling are much better Denies any fever and or chills Review of Systems Review of Systems: All systems reviewed and are unremarkable except as noted below Musculoskeletal: Bilateral leg swelling more on the left than the right with chronic skin changes Physical Exam Physical Exam: Lying in bed comfortably Constitutional: well developed, well nourished, + ill appearing and + obese Eyes: PERRL, conjunctivae normal, anicteric sclerae ENMT: external ear and nose normal, oropharynx normal Neck: trachea midline, no thyromegaly Respiratory: no respiratory distress and no cough Auscultation: lungs clear to auscultation bilaterally Cardiovascular: Rate/Rhythm: regular rate and regular rhythm; not tachycardic Heart Sounds: normal S1 and normal S2; no murmur Extremities: + edema (Bilateral leg swelling.Redness and tenderness with increasing warmth left) Gastrointestinal (Abdomen): Inspection/Auscultation: normal bowel sounds; abdomen not distended Percussion/Palpation: abdomen soft; abdomen nontender Musculoskeletal: No acute arthritis in any joint Neurologic: Alert, awake and oriented x3 Psychiatric: A+Ox3, euthymic affect Lymphatic: no cervical or axillary lymphadenopathy Results & Data Results & Data ([facility]) Vital Signs (Past 12 Hours) Vital Signs Temp Pulse Pulse Resp BP BP Pulse Ox 02/20/21 15:43 37.3 C 88 20 105/44 L 95 02/20/21 12:00 36.8 C 94 H 18 151/81 H 95 02/20/21 10:44 94 H 02/20/21 08:00 37.2 C 95 H 20 141/78 H 94 Laboratory Results Short CBC 02/20/21 Range/Units 07:05 WBC 7.55 (4.8-10.8) K/uL Hgb 13.6 L (14.0-18.0) g/dL Hct 39.7 L (42-52) % Plt Count 162 (130-400) K/uL BMP 02/20/21 07:05 Sodium 135 L Potassium 4.5 Chloride 106 Carbon Dioxide 24 BUN 23 H Creatinine 1.85 H Glucose 192 H Calcium 8.4 L Urine 02/19/21 Range/Units Unknown Urine Color Yellow Urine Appearance Clear (Clear) Urine pH 5.5 (4.5-7.5) Ur Specific Burton 1.014 (1.000-1.030) Urine Protein 1+ H (Negative) Urine Glucose (UA) Trace H (Negative) Medications Administered Current Inpatient Medications Acetaminophen (Acetaminophen 325 Mg Tab) 650 mg PO Q4H PRN PRN Reason: Pain or Fever Stop: 03/21/21 02:06 Amlodipine Besylate (Amlodipine Besylate 5 Mg Tab) 5 mg PO [facility] Stop: 03/21/21 20:59 Last Admin: 02/19/21 20:28 Dose: 5 mg Documented by: Aspirin (Aspirin 81 Mg Ectab) 81 mg PO [facility] Stop: 03/21/21 08:59 Last Admin: 02/20/21 08:34 Dose: 81 mg Documented by: Atorvastatin Calcium (Atorvastatin 40 Mg Tab) 40 mg PO [facility] Stop: 03/21/21 20:59 Last Admin: 02/19/21 20:28 Dose: 40 mg Documented by: Dextrose (Dextrose 50% 50 Ml Syringe) 25 - 50 ml IV UD PRN; Protocol PRN Reason: Hypoglycemia Protocol Stop: 03/21/21 02:06 Doxycycline Hyclate (Doxycycline Hyclate 100 Mg Cap) 100 mg PO Q12H [facility] Stop: 02/26/21 11:59 Last Admin: 02/20/21 12:16 Dose: 100 mg Documented by: Fenofibrate (Fenofibrate Nanocrystallized 48 Mg Tablet) 48 mg PO DAILY [facility] Stop: 03/21/21 08:59 Last Admin: 02/20/21 08:34 Dose: 48 mg Documented by: Finasteride (Finasteride 5 Mg Tab) 5 mg PO QAM [facility] Stop: 03/21/21 08:59 Last Admin: 02/20/21 08:34 Dose: 5 mg Documented by: Glucagon (Glucagon For Inj 1 Mg Vial) 1 mg SQ UD PRN; Protocol PRN Reason: Hypoglycemia Protocol Stop: 03/21/21 02:06 Glucose (Glucose 10 Tabs/Tube) 4 - 8 tabs PO UD PRN; Protocol PRN Reason: Hypoglycemia Protocol Stop: 03/21/21 02:06 Glucose (Glucose 40% Gel 15 Gm Tube) 15 - 30 gm PO UD PRN; Protocol PRN Reason: Hypoglycemia Protocol Stop: 03/21/21 02:06 Heparin Sodium (Porcine) (Heparin Sod 5,000 Unit/0.5 Ml Vial) 5,000 units SQ Q8 [facility] Stop: 03/21/21 05:59 Last Admin: 02/20/21 14:43 Dose: 5,000 units Documented by: Hydromorphone HCl (Hydromorphone Inj 0.5 Mg/0.5 Ml Syr) 0.5 mg IV Q3H PRN PRN Reason: Pain Stop: 03/05/21 02:06 Promethazine HCl 12.5 mg/ (Sodium Chloride) 50.5 mls @ 202 mls/hr IV Q6H PRN PRN Reason: Nausea And Vomiting Stop: 03/21/21 02:06 Cefazolin Sodium (Ancef 2000mg) 2,000 mg in 15 mls @ 3.75 mls/min IV Q8H [facility] Stop: 02/26/21 17:59 Last Admin: 02/20/21 10:50 Dose: 3.75 mls/min Documented by: Insulin Aspart (Insulin Aspart 100 Units/Ml 3 Ml Pen) 0 units SC ACHS [facility] Stop: 03/21/21 08:14 Last Admin: 02/20/21 12:16 Dose: 6 units Documented by: Insulin Glargine (Insulin Glargine Solostar 100 Units/Ml 3 Ml Pen) 5 units SC BID [facility] Stop: 03/21/21 08:59 Last Admin: 02/20/21 08:34 Dose: 5 units Documented by: Levothyroxine Sodium (Levothyroxine Sodium 50 Mcg Tablet) 50 mcg PO DAILYBB [facility] Stop: 03/21/21 06:29 Last Admin: 02/20/21 06:22 Dose: 50 mcg Documented by: Lisinopril (Lisinopril 40 Mg Tab) 40 mg PO HS [facility] Stop: 03/21/21 20:59 Last Admin: 02/19/21 20:28 Dose: 40 mg Documented by: Miscellaneous (Carbohydrates For Hypoglycemia ) 15 - 30 gm PO UD PRN PRN Reason: Hypoglycemia Protocol Stop: 03/21/21 02:06 Tamsulosin HCl (Tamsulosin Hcl 0.4 Mg Cap) 0.4 mg PO QAM [facility] Stop: 03/21/21 08:59 Last Admin: 02/20/21 08:34 Dose: 0.4 mg Documented by: Tramadol HCl (Tramadol Hcl 50 Mg Tablet) 25 - 50 mg PO Q4H PRN PRN Reason: Pain Stop: 03/21/21 01:10 EST Last Admin: 02/20/21 12:15 Dose: 50 mg Documented by:
[2021-02-20] MEDS: amLODIPine BESYLATE 5 MG TAB PO SCH (20:36)
[2021-02-20] MEDS: lisinopril 40 MG TAB PO SCH (20:37)
[2021-02-20] MEDS: ATORVASTATIN 40 MG TAB PO SCH (20:37)
[2021-02-21] MEDS: DOXYCYCLINE HYCLATE 100 MG CAP PO SCH ×3 (00:17→20:22)
[2021-02-21] MEDS: ceFAZolin 2000MG 2,000 MG/15 ML SYR IV SCH ×3 (02:26→17:45)
[2021-02-21] MEDS: LEVOTHYROXINE SODIUM 50 MCG TABLET PO SCH (06:29)
[2021-02-21] MEDS: HEPARIN SOD 5,000 UNIT/0.5 ML VIAL SQ SCH ×3 (06:29→20:23)
[2021-02-21] MEDS: FENOFIBRATE NANOCRYSTALLIZED 48 MG TABLET PO SCH (08:00)
[2021-02-21] MEDS: TAMSULOSIN HCL 0.4 MG CAP PO SCH (08:01)
[2021-02-21] MEDS: ASPIRIN 81 MG ECTAB PO SCH (08:01)
[2021-02-21] MEDS: FINASTERIDE 5 MG TAB PO SCH (08:01)
[2021-02-21] MEDS: INSULIN GLARGINE SOLOSTAR 100 UNITS/ML 3 ML PEN SC SCH ×2 (09:06→21:08)
[2021-02-21] MEDS: INSULIN ASPART 100 UNITS/ML 3 ML PEN SC SCH ×4 (09:06→21:08)
--- NOTE | 2021-02-21 16:50 | Hospitalist Progress Note ---
Date of Service February 21, 2021 Assessment & Plan (1) History of colon polyps: (2) Sepsis: Plan: Secondary to recurrent LLE cellulitis without any ulceration and/or obvious skin break Rule out osteomyelitis-CT did not show any evidence of osteomyelitis Started with intravenous doxycycline Added cefazolin Blood culture is growing gram-negative bacilli in 1 out of 2 bottles We will continue current antibiotics 1 out of 2 blood culture grew Morganella Morganii and is pansensitive except Augmentin Will give oral Keflex to finish the course of 10 days of antibiotic in total on discharge hx COPD, chronic cough symptoms as per patient Does not have any acute exacerbation We will continue his home medications Hypertension, elevated secondary to illness Blood pressure remains on the lower side Hyperlipidemia on statin Rx DM2 on oral medications, suboptimal control as of recent hemoglobin A1c of 8.15 January 2021 Basal insulin, ISS BG goal 1 10-1 40, carb count coverage Hypothyroidism, euthyroid as of recent outpatient TSH CRI, creatinine better than baseline past tobacco abuse DVT prophylaxis. Heparin subcu Full code Patient's requesting update providers. Ursula Lanette Seng , contact #[phone]. Likely discharge tomorrow Admission and Anticipated Discharge Date Admission Date: February 19, 2021 Subjective 02/20/2021 The patient was seen and examined in medical telemetry unit His leg pain and swelling are much better Denies any fever and or chills 02/21/2021 The patient was seen and examined in medical telemetry unit He has been feeling a lot better His left leg swelling is down and there is no redness Denies any other symptoms Review of Systems Review of Systems: All systems reviewed and are unremarkable except as noted below Musculoskeletal: Bilateral leg swelling more on the left than the right with chronic skin changes Physical Exam Physical Exam: Lying in bed comfortably Constitutional: well developed, well nourished, + ill appearing and + obese Eyes: PERRL, conjunctivae normal, anicteric sclerae ENMT: external ear and nose normal, oropharynx normal Neck: trachea midline, no thyromegaly Respiratory: no respiratory distress and no cough Auscultation: lungs clear to auscultation bilaterally Cardiovascular: Rate/Rhythm: regular rate and regular rhythm; not tachycardic Heart Sounds: normal S1 and normal S2; no murmur Extremities: + edema ( Bilateral leg swelling.Redness and tenderness with increasing warmth left) Gastrointestinal (Abdomen): Inspection/Auscultation: normal bowel sounds; abdomen not distended Percussion/Palpation: abdomen soft; abdomen nontender Musculoskeletal: No acute arthritis in any joint Skin: Has bilateral leg swelling. Improved a lot and has chronic skin changes Psychiatric: A+Ox3, euthymic affect Lymphatic: no cervical or axillary lymphadenopathy Results & Data Results & Data ([facility]) Vital Signs (Past 12 Hours) Vital Signs Temp Pulse Pulse Resp BP Pulse Ox 02/21/21 15:37 92 H 02/21/21 12:00 36.6 C 88 18 129/75 96 02/21/21 11:03 85 02/21/21 08:00 36.7 C 88 18 132/73 95 Medications Administered Current Inpatient Medications Acetaminophen (Acetaminophen 325 Mg Tab) 650 mg PO Q4H PRN PRN Reason: Pain or Fever Stop: 03/21/21 02:06 Last Admin: 02/21/21 07:59 Dose: 650 mg Documented by: Amlodipine Besylate (Amlodipine Besylate 5 Mg Tab) 5 mg PO [facility] Stop: 03/21/21 20:59 Last Admin: 02/20/21 20:36 Dose: 5 mg Documented by: Aspirin (A[facility]in 81 Mg Ectab) [facility] Stop: 03/21/21 08:59 Last Admin: 02/21/21 08:01 Dose: 81 mg Documented by: Atorvastatin Calcium (Atorvastatin 40 Mg Tab) 40 mg PO HS [facility] Stop: 03/21/21 20:59 Last Admin: 02/20/21 20:37 Dose: 40 mg Documented by: Dextrose (Dextrose 50% 50 Ml Syringe) 25 - 50 ml IV UD PRN; Protocol PRN Reason: Hypoglycemia Protocol Stop: 03/21/21 02:06 Doxycycline Hyclate (Doxycycline Hyclate 100 Mg Cap) 100 mg PO Q12H [facility] Stop: 02/26/21 11:59 Last Admin: 02/21/21 12:22 Dose: 100 mg Documented by: Fenofibrate (Fenofibrate Nanocrystallized 48 Mg Tablet) 48 mg PO DAILY [facility] Stop: 03/21/21 08:59 Last Admin: 02/21/21 08:00 Dose: 48 mg Documented by: Finasteride (Finasteride 5 Mg Tab) 5 mg PO QAM [facility] Stop: 03/21/21 08:59 Last Admin: 02/21/21 08:01 Dose: 5 mg Documented by: Glucagon (Glucagon For Inj 1 Mg Vial) 1 mg SQ UD PRN; Protocol PRN Reason: Hypoglycemia Protocol Stop: 03/21/21 02:06 Glucose (Glucose 10 Tabs/Tube) 4 - 8 tabs PO UD PRN; Protocol PRN Reason: Hypoglycemia Protocol Stop: 03/21/21 02:06 Glucose (Glucose 40% Gel 15 Gm Tube) 15 - 30 gm PO UD PRN; Protocol PRN Reason: Hypoglycemia Protocol Stop: 03/21/21 02:06 Heparin Sodium (Porcine) (Heparin Sod 5,000 Unit/0.5 Ml Vial) 5,000 units SQ Q8 [facility] Stop: 03/21/21 05:59 Last Admin: 02/21/21 14:56 Dose: 5,000 units Documented by: Hydromorphone HCl (Hydromorphone Inj 0.5 Mg/0.5 Ml Syr) 0.5 mg IV Q3H PRN PRN Reason: Pain Stop: 03/05/21 02:06 Promethazine HCl 12.5 mg/ (Sodium Chloride) 50.5 mls @ 202 mls/hr IV Q6H PRN PRN Reason: Nausea And Vomiting Stop: 03/21/21 02:06 Cefazolin Sodium (Ancef 2000mg) 2,000 mg in 15 mls @ 3.75 mls/min IV Q8H [facility] Stop: 02/26/21 17:59 Last Admin: 02/21/21 10:35 Dose: 3.75 mls/min Documented by: Insulin Aspart (Insulin Aspart 100 Units/Ml 3 Ml Pen) 0 units SC ACHS [facility] Stop: 03/21/21 08:14 Last Admin: 02/21/21 12:21 Dose: 7 units Documented by: Insulin Glargine (Insulin Glargine Solostar 100 Units/Ml 3 Ml Pen) 5 units SC BID [facility] Stop: 03/21/21 08:59 Last Admin: 02/21/21 09:06 Dose: 5 units Documented by: Levothyroxine Sodium (Levothyroxine Sodium 50 Mcg Tablet) 50 mcg PO DAILYBB [facility] Stop: 03/21/21 06:29 Last Admin: 02/21/21 06:29 Dose: 50 mcg Documented by: Lisinopril (Lisinopril 40 Mg Tab) 40 mg PO HS [facility] Stop: 03/21/21 20:59 Last Admin: 02/20/21 20:37 Dose: 40 mg Documented by: Miscellaneous (Carbohydrates For Hypoglycemia ) 15 - 30 gm PO UD PRN PRN Reason: Hypoglycemia Protocol Stop: 03/21/21 02:06 Tamsulosin HCl (Tamsulosin Hcl 0.4 Mg Cap) 0.4 mg PO QAM [facility] Stop: 03/21/21 08:59 Last Admin: 02/21/21 08:01 Dose: 0.4 mg Documented by: Tramadol HCl (Tramadol Hcl 50 Mg Tablet) 25 - 50 mg PO Q4H PRN PRN Reason: Pain Stop: 03/21/21 01:10 EST Last Admin: 02/20/21 22:25 Dose: 50 mg Documented by:
[2021-02-21] MEDS: traMADol HCL 50 MG TABLET PO PRN (17:03)
[2021-02-21] MEDS: amLODIPine BESYLATE 5 MG TAB PO SCH (20:21)
[2021-02-21] MEDS: ATORVASTATIN 40 MG TAB PO SCH (20:23)
[2021-02-21] MEDS: lisinopril 40 MG TAB PO SCH (20:23)
[2021-02-22] MEDS: ceFAZolin 2000MG 2,000 MG/15 ML SYR IV SCH ×2 (03:02→08:33)
[2021-02-22 05:55] LABS: Basophils # (auto) 0.02 K/uL (0-0.2); Basophils % (auto) 0.3 %; Eosinophils % (auto) 1.5 %; Hematocrit (blood only) 39.9 % (42-52); Hemoglobin 13.7 g/dL (14.0-18.0); Immature Granulocytes # (auto) 0.06 K/uL (0.00-0.02); Immature Granulocytes % (auto) 0.9 %; Lymphocytes # (auto) 1.73 K/uL (1.2-3.4); Lymphocytes % (auto) 25.7 %; Mean Corpuscular Hemoglobin 31.6 pg (25-34); Mean Corpuscular Hgb Conc 34.3 g/dL (32-36); Mean Corpuscular Volume 91.9 fL (80-100); Mean Platelet Volume 10.6 fL (7.4-10.4); Monocytes # (auto) 0.61 K/uL (0.11-0.59); Monocytes % (auto) 9.1 %; Neutrophils # (auto) 4.21 K/uL (1.4-6.5); Neutrophils % (auto) 62.5 %; Platelet Count 188 K/uL (130-400); RDW Coefficient of Variation 12.7 % (11.5-14.5); RDW Standard Deviation 42.9 fL (36.4-46.3); Red Blood Count 4.34 M/uL (4.7-6.1); White Blood Count 6.73 K/uL (4.8-10.8)
[2021-02-22 06:15] LABS: BUN Creatinine Ratio 15.7 (10-20); Calcium 8.8 mg/dl (8.5-10.1); Creatinine Clr Calc Pharmacy 56.5 ml/min; Est GFR (African American) 44.2 ml/min; Est GFR (Non-African American) 38.2 ml/min; Potassium 4.1 mmol/L (3.5-5.1)
[2021-02-22] MEDS: LEVOTHYROXINE SODIUM 50 MCG TABLET PO SCH (06:26)
[2021-02-22] MEDS: HEPARIN SOD 5,000 UNIT/0.5 ML VIAL SQ SCH ×2 (06:26→12:35)
[2021-02-22] MEDS: FINASTERIDE 5 MG TAB PO SCH (08:29)
[2021-02-22] MEDS: ASPIRIN 81 MG ECTAB PO SCH (08:29)
[2021-02-22] MEDS: FENOFIBRATE NANOCRYSTALLIZED 48 MG TABLET PO SCH (08:29)
[2021-02-22] MEDS: INSULIN GLARGINE SOLOSTAR 100 UNITS/ML 3 ML PEN SC SCH (08:29)
[2021-02-22] MEDS: TAMSULOSIN HCL 0.4 MG CAP PO SCH (08:29)
[2021-02-22] MEDS: INSULIN ASPART 100 UNITS/ML 3 ML PEN SC SCH ×2 (08:30→12:34)
[2021-02-22] MEDS: DOXYCYCLINE HYCLATE 100 MG CAP PO SCH (12:35)
--- NOTE | 2021-02-22 13:27 | Discharge Summary ---
Date of Service February 22, 2021 Admission HPI Per Admitting Provider History obtained from patient, family, and records. Medical history significant for COPD, ROWDY on CPAP, hypertension, hyperlipidemia, essential tremor, DM2 on oral medications, hypothyroidism, CRI (baseline creatinine 2), past tobacco abuse. Last confinement December 2015 for UGI B secondary to gastric ulcers. Patient discharged on PPI. Patient sustained crush injury on left calf a week ago. Left lower leg crushed between 2 mowers as per patient. Outpatient ultrasound negative for DVT. Patient prescribed Bactrim and mupirocin for left leg cellulitis. Left lower leg swelling improved but was never fully resolved as per patient. 2 days ago, patient noted sudden redness, swelling of left lower leg without chest pain, S OB. No recent trauma. Fever chills noted last night. Patient brought to the ER by . IV ceftriaxone given at the ER for sepsis. 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 Principal Diagnosis LLE cellulitis Discharge Exam General: A&Ox3 HENT: NCAT, MMM, EOMI Eyes: PERRLA Neck: Supple, normal range of motion CVS: normal rate and rhythm Resp: b/l good breath sounds Abdomen: Soft, ND/NT Extremities: LLE erythema/swelling is improved Neuro: face symmetric, no focal deficit Skin: warm and dry MSK: no joint swelling/erythema Discharge Data Allergies Allergy/AdvReac Type Severity Reaction Status Date / Time atenolol Allergy Intermediate turns Verified 02/19/21 01:42 bright yellow Consultations 02/19/21 00:01 ED Decision to Admit Stat Ordered Studies 02/18/21 22:23 US venous doppler LE LT Stat 02/19/21 01:03 CT tib/fib LT wo con Urgent Hospital Course (1) History of colon polyps: (2) Sepsis: Secondary to recurrent LLE cellulitis without any ulceration and/or obvious skin break Rule out osteomyelitis-CT did not show any evidence of osteomyelitis Blood cultures positive for Morganella morganii. Patient was transitioned to ciprofloxacin. On the day of discharge patient was doing okay. Patient was afebrile. WBC was within normal limit and reports he feels better. Swelling/pain and erythema was improved. Patient was discharged in stable condition on ciprofloxacin for total of 14 days. Total Time Total Time Spent Total Time Spent (In Minutes): 35 Discharge Plan Discharge Items Patient Disposition: Home - Self-Care Reason For Visit: SEPSIS Discharge Diagnosis: recurrent LLE cellulitis without Condition on Discharge: Fair Activity: Resume your previous activity Non-emergency contact: Primary Care Provider Call non-emergency contact if: your symptoms worsen Follow-up/Referrals: Max Rosario MD [Primary Care Provider] - (Date & Time 02/26/2021 10:00 AM Provider Max Rosario MD Department [facility] ) Diet: Heart Healthy Addtl Attending Provider Instructions: Follow-up with your primary care physician. An appointment has been requested. Start taking ciprofloxacin 500 mg twice daily for 2 weeks. Pending Studies at Discharge: No Stand-Alone Forms: [employer], Smoking Cessation Medications and DC Order Prescriptions: New ciprofloxacin HCl [Cipro] 500 mg tablet 500 mg PO BID Qty: 28 RF: 0 Continued atorvastatin 40 mg Tablet 40 mg PO HS RF: 0 prednisone 20 mg Tablet 40 mg PO UD PRN (Reason: copd rescue kit) RF: 0 amlodipine 5 mg Tablet 5 mg PO HS RF: 0 aspirin 81 mg Tablet,Delayed Release (Dr/Ec) 81 mg PO QAM RF: 0 tramadol 50 mg Tablet 50 mg PO Q8 PRN (Reason: Pain) RF: 0 torsemide 100 mg Tablet 50 mg PO Q OTHER DAY RF: 0 Caverject 40 mcg Recon Soln 40 mcg INTRA-CAVERNOSAL UD PRN (Reason: Sexual Activity) RF: 0 tamsulosin 0.4 mg Capsule 0.4 mg PO QAM RF: 0 levothyroxine 50 mcg Tablet 50 mcg PO QAM RF: 0 glimepiride 4 mg Tablet 4 mg PO QAM RF: 0 albuterol sulfate 90 mcg/actuation Hfa Aerosol Inhaler 2 puff INHALATION Q4 PRN (Reason: sob,cough or wheeze) RF: 0 pioglitazone 30 mg Tablet 30 mg PO QAM RF: 0 lisinopril 40 mg Tablet 40 mg PO HS RF: 0 finasteride 5 mg Tablet 5 mg PO QAM RF: 0 sildenafil (pulm.hypertension) [Revatio] 20 mg Tablet 40 - 60 mg PO UD MDD 1dose PRN (Reason: Sexual Activity) RF: 0 budesonide-formoterol 80-4.5 mcg/actuation Hfa Aerosol Inhaler 2 puff INHALATION BID RF: 0 omega 2-vwb-lba-fish oil [Fish Oil] 60-90-500 mg Capsule 1 cap PO QAM RF: 0 Trulicity 1.5 mg/0.5 mL Pen Injector 1.5 mg SUBCUT WK RF: 0 testosterone cypionate 200 mg/mL Kit 200 mg IM .EVERY 14 DAYS RF: 0 fenofibrate 54 mg tablet 54 mg PO DAILY RF: 0 sodium chloride [Saline Mist] 0.65 % Aerosol,Hester 2 spray INTRANASAL UD PRN (Reason: Congestion) RF: 0 ascorbic acid (vitamin C) 1,000 mg Tablet 1 g PO DAILY RF: 0 Discharge Orders: Discharge Order (Routine); Ordered 02/22/21 Ordered By: Pierce Salazar Admission Data Admit Date/Time: 02/19/21 01:06 Attending Provider: Pirece Salazar Admit Provider: Jose Juarez Primary Care Provider: Max Rosario Other Providers: Jose Juarez
[2021-02-22] MEDS ORDERED: CIPROFLOXACIN / D5W 400 MG/200 ML BAG IV SCH (14:00)
[2021-02-22] MEDS ORDERED: CIPROFLOXACIN 500 MG TAB PO SCH (14:00)
== END 2021-02-22 16:33 | disposition home or self-care (01) | DRG 872 ==
LOC: ED 21:41 → SUATTDRO 02-19 01:06 → EDINP 02-19 01:06 → 2N 02-19 01:45

== ENCOUNTER 2021-04-28 08:50 | Inpatient (IN) ==
[2021-04-28] MEDS ORDERED: dexAMETHasone**PF** 10 MG/ML VIAL IV ONE (09:07)
[2021-04-28] MEDS ORDERED: ACETAMINOPHEN 500 MG TAB PO STA (09:15)
--- NOTE | 2021-04-28 09:15 | Emergency Department Note ---
Impression & Plan Pneumonia due to 2019 novel coronavirus, Hypoxia, Acute hyperglycemia, Acute hyponatremia, JUAN (acute kidney injury) ED Provider Note NAME: TYLER MARIE AGE: 65 SEX: M : 1955 ARRIVES VIA: Ambulance INFORMANT: Patient, ED PROVIDER(S): Pedro Moreno DO CHIEF COMPLAINT: Shortness of breath HPI: The patient is a 65-year-old male who has a history of COPD who presented to the emergency department by ambulance for an evaluation of difficulty breathing. The patient was recently diagnosed with COVID-19. The patient st ates he has been having worsening shortness of breath as well as difficulty breathing. He also was noted to have a fever. The patient states he has a productive cough. He was seen by his primary care physician and was diagnosed with COVID-19. He states his symptoms are significantly worsened. He notices chest pain with coughing. He noticed a fever on the way in. The patient states that he has been using his usual medications without significant relief of his symptoms. He was started on medications when he was seen by his [facility] doctor. He is not sure which ones they were. The patient is not vaccinated against COVID-19. ROS: See above HPI for pertinent positives & negatives. A total of 10 systems reviewed and were otherwise negative. PAST MEDICAL HISTORY: See Below PAST SURGICAL HISTORY: See Below FAMILY HISTORY: See Below SOCIAL HISTORY: See Below HOME MEDICATIONS: See Below ALLERGIES: See Below VITALS: See Below PHYSICAL EXAMINATION: GENERAL: The patient is awake and alert. The patient is very anxious appearing and appears to be in significant distress. EYES: The conjunctivae are clear. The pupils are round and reactive. EARS, NOSE, MOUTH AND THROAT: The nose is without any evidence of any deformity. NECK: The neck is nontender and supple. RESPIRATORY: Shallow respirations were noted. Diminished breath sounds are noted throughout. Scattered rhonchi as well as rales were noted in all lung andrews. There was significant conversational dyspnea. CARDIOVASCULAR: Regular rate and rhythm noted there no murmurs rubs or gallops normal S1 normal S2. GASTROINTESTINAL: The abdomen is soft. Abdomen is nontender. MUSCULOSKELETAL/EXTREMITIES: There is no evidence of gross deformity full range of motion is noted in the hips and shoulders. SKIN: There is no obvious evidence of any rash. There are no petechiae, pallor or cyanosis noted. NEUROLOGIC: Patient is awake alert and oriented x3 MEDICAL DECISION MAKING: The patient is a 65-year-old nonvaccinated COPD patient who presented to the emergency department for an evaluation of difficulty breathing. The patient himself has started having Covid symptoms over the course the last week. He was tested positive for Covid recently. He presented to emergency department by ambulance because of worsening symptoms. He was found to have significant hypoxia. The patient was treated with IV fluids and IV Decadron in the emergency department. He was also given IV insulin for elevated blood sugar. I discussed the patient's laboratory and [facility] have agreed to evaluate the patient in the emergency department for further management and disposition. Triage Nursing notes reviewed. Prior medical records reviewed Vital Signs: reviewed and remarkable for hypoxia tachycardia tachypnea and elevated blood pressure. He was also noted to have hypoxia on room air. Differential diagnosis: Reactive airway disease, pneumonia, pneumothorax, COPD, CHF, infections, cardiac ischemia, pulmonary embolism, musculoskeletal, gastrointestinal, as well as other pathologies. ER treatment provided: See below Diagnostics interpreted by me: ECG: EKG was obtained in the emergency department. My interpretation is sinus tachycardia 111 bpm. There was no ectopy. There is no acute ST segment abnormalities noted. This was compared to a tracing from February 182020. No changes were noted. Cardiac Monitoring: An order was placed for continuous cardiac monitoring. The monitor shows a rate of 111 bpm with sinus tachycardia. Laboratory studies: As stated above and show below. Imaging studies: See below Consultation(s): I discussed this case with Pam who is on-call for the [facility] hospitalist group. They will evaluate the patient in the emergency department. Past Med/Surg History Medical History BPH (benign prostatic hyperplasia) Chronic obstructive pulmonary disease Diabetes mellitus, type 2 Hearing deficit History of bleeding ulcers History of colon polyps Hyperlipidemia Hypertension Hypothyroidism Sleep apnea cpap Tremor of left hand Surgical History History of colonoscopy History of esophagogastroduodenoscopy (EGD) History of tooth extraction Hx of vasectomy Status post LASIK surgery of both eyes Family History Grandmother (Maternal) Family history of diabetes mellitus Other No family history of adverse response to anesthesia Social History Smoking Status: Former smoker Tobacco Type: Cigarettes Second Hand Exposure: Yes (parents smoked); Hx Alcohol Use: No Hx Substance Use: No Preferred Language: Tristanian Communication Ability: Effective 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 Beliefs That Will Affect Care: None Current Living Situation: Spouse and Family Current Living Situation Comment: Lives with and 2 children Feels Safe at Home: Yes Assistive Devices: CPAP and Glasses Allergies Allergies Allergy/AdvReac Type Severity Reaction Status Date / Time atenolol Allergy Intermediate turns Verified 02/19/21 01:42 bright yellow Home Meds Home Medications Medication Instructions Recorded Confirmed albuterol sulfate 90 mcg/actuation 2 puff INHALATION Q4 PRN 02/01/19 02/19/21 aerosol inhaler alprostadil 40 mcg intracavernosal 40 mcg INTRA-CAVERNOSAL UD PRN 02/01/19 02/19/21 solution (Caverject) amlodipine 5 mg tablet 5 mg PO HS 02/01/19 02/19/21 aspirin 81 mg tablet,delayed 81 mg PO QAM 02/01/19 02/19/21 release atorvastatin 40 mg tablet 40 mg PO HS 02/01/19 02/19/21 budesonide-formoterol HFA 80 2 puff INHALATION BID 02/01/19 02/19/21 mcg-4.5 mcg/actuation aerosol inhaler dulaglutide 1.5 mg/0.5 mL 1.5 mg SUBCUT WK 02/01/19 02/19/21 subcutaneous [facility] finasteride 5 mg tablet 5 mg PO QAM 02/01/19 02/19/21 glimepiride 4 mg tablet 4 mg PO QAM 02/01/19 02/19/21 levothyroxine 50 mcg tablet 50 mcg PO QAM 02/01/19 02/19/21 lisinopril 40 mg tablet 40 mg PO HS 02/01/19 02/19/21 omega 2-ovq-ibd-fish oil 60 mg-90 1 cap PO QAM 02/01/19 02/19/21 mg-500 mg capsule (Fish Oil) pioglitazone 30 mg tablet 30 mg PO QAM 02/01/19 02/19/21 prednisone 20 mg tablet 40 mg PO UD PRN 02/01/19 02/19/21 sildenafil (pulm.hypertension) 20 40 - 60 mg PO UD PRN MDD 1dose 02/01/19 02/19/21 mg tablet (Revatio) tamsulosin 0.4 mg capsule 0.4 mg PO QAM 02/01/19 02/19/21 testosterone cypionate 200 mg/mL 200 mg IM .EVERY 14 DAYS 02/01/19 02/19/21 intramuscular kit torsemide 100 mg tablet 50 mg PO Q OTHER DAY 02/01/19 02/19/21 tramadol 50 mg tablet 50 mg PO Q8 PRN 02/01/19 02/19/21 ascorbic acid (vitamin C) 1,000 mg 1 g PO DAILY 02/19/21 02/19/21 tablet fenofibrate 54 mg tablet 54 mg PO DAILY 02/19/21 02/19/21 sodium chloride 0.65 % nasal spray 2 spray INTRANASAL UD PRN 02/19/21 02/19/21 aerosol (Saline Mist) Previous Rx's Medication Instructions Recorded ciprofloxacin HCl 500 mg tablet 500 mg PO BID #28 tab 02/22/21 (Cipro) Results & Data (ED) Vital Signs Vital Signs - 24 hr 04/28/21 08:54 04/28/21 09:02 04/28/21 09:12 Temperature 39.6 C H Temperature Source Oral Pulse Rate 103 H 111 H Respiratory Rate 32 H Respiratory Effort / Characteristics Labored Short of Breath Labored Short of Breath Respiratory Depth Deep Deep Respiratory Pattern Tachypnea Tachypnea Blood Pressure 159/82 H Blood Pressure Mean 107 Pulse Oximetry 94 94 Oxygen Delivery Method Nasal Cannula Nasal Cannula Nasal Cannula Oxygen Flow Rate 4 4 4 Sepsis Recent Fever Within 48 Hours Yes Sepsis New/Unexplained Change in Mental Status No Sepsis Action Taken by Nursing No Action Required Home Medications Current Medication List: was personally reviewed by me Laboratory Data Attestation: I reviewed the patient's lab results. Result diagrams: 04/28/21 09:10 04/28/21 09:10 Lab Results 04/28/21 04/28/21 04/28/21 Range/Units 09:10 09:10 09:10 WBC 4.13 L (4.8-10.8) K/uL RBC 5.11 (4.7-6.1) M/uL Hgb 16.4 (14.0-18.0) g/dL Hct 45.5 (42-52) % MCV 89.0 (80-100) fL MCH 32.1 (25-34) pg MCHC 36.0 (32-36) g/dL RDW Std Deviation 43.0 (36.4-46.3) fL RDW Coeff of Racquel 13.1 (11.5-14.5) % Plt Count 143 (130-400) K/uL MPV 11.2 H (7.4-10.4) fL Immature Gran % (Auto) 0.0 % Neut % (Auto) 74.3 % Lymph % (Auto) 18.9 % Burke % (Auto) 6.8 % Eos % (Auto) 0.0 % Baso % (Auto) 0.0 % Neut # (Auto) 3.07 (1.4-6.5) K/uL Lymph # (Auto) 0.78 L (1.2-3.4) K/uL Burke # (Auto) 0.28 (0.11-0.59) K/uL Eos # (Auto) 0.00 (0-0.5) K/uL Baso # (Auto) 0.00 (0-0.2) K/uL Immature Gran # (Auto) 0.00 (0.00-0.02) K/uL PT 10.2 (9.0-12.0) Seconds INR 1.0 (0.9-1.1) APTT 27.6 (21.0-31.0) Seconds PTT Ratio 1.0 Sodium 129 L (136-145) mmol/L Potassium 4.4 (3.5-5.1) mmol/L Chloride 97 L (98-107) mmol/L Carbon Dioxide 21 (21-32) mmol/L Anion Gap 11.0 (3-11) BUN 42 H (7-18) mg/dl Creatinine 2.41 H (0.6-1.4) mg/dl Est Cr Clr Drug Dosing 42.2 ml/min Est GFR ( Amer) 31.9 ml/min Est GFR (Non-Af Amer) 27.5 ml/min BUN/Creatinine Ratio 17.6 (10-20) Glucose 428 H* (70-99) mg/dl Lactate Calcium 9.0 (8.5-10.1) mg/dl Magnesium 1.8 (1.8-2.4) mg/dl Total Bilirubin 0.4 (0.2-1) mg/dl AST 31 (15-37) U/L ALT 46 (12-78) Alkaline Phosphatase 47 (45-117) U/L Troponin I 0.054 H* (0-0.045) ng/ml Total Protein 7.2 (6.4-8.2) gm/dl Albumin 2.9 L (3.4-5.0) gm/dl Globulin 4.3 H (2.5-4.0) gm/dl Albumin/Globulin Ratio 0.7 L (0.9-2) Beta-Hydroxybutyric Acd 2.72 (0.2-2.81) mg/dl 04/28/21 Range/Units 09:10 WBC (4.8-10.8) K/uL RBC (4.7-6.1) M/uL Hgb (14.0-18.0) g/dL Hct (42-52) % MCV (80-100) fL MCH (25-34) pg MCHC (32-36) g/dL RDW Std Deviation (36.4-46.3) fL RDW Coeff of Racquel (11.5-14.5) % Plt Count (130-400) K/uL MPV (7.4-10.4) fL Immature Gran % (Auto) % Neut % (Auto) % Lymph % (Auto) % Burke % (Auto) % Eos % (Auto) % Baso % (Auto) % Neut # (Auto) (1.4-6.5) K/uL Lymph # (Auto) (1.2-3.4) K/uL Burke # (Auto) (0.11-0.59) K/uL Eos # (Auto) (0-0.5) K/uL Baso # (Auto) (0-0.2) K/uL Immature Gran # (Auto) (0.00-0.02) K/uL PT (9.0-12.0) Seconds INR (0.9-1.1) APTT (21.0-31.0) Seconds PTT Ratio Sodium (136-145) mmol/L Potassium (3.5-5.1) mmol/L Chloride (98-107) mmol/L Carbon Dioxide (21-32) mmol/L Anion Gap (3-11) BUN (7-18) mg/dl Creatinine (0.6-1.4) mg/dl Est Cr Clr Drug Dosing ml/min Est GFR ( Amer) ml/min Est GFR (Non-Af Amer) ml/min BUN/Creatinine Ratio (10-20) Glucose (70-99) mg/dl Lactate Cancelled Calcium (8.5-10.1) mg/dl Magnesium (1.8-2.4) mg/dl Total Bilirubin (0.2-1) mg/dl AST (15-37) U/L ALT (12-78) Alkaline Phosphatase (45-117) U/L Troponin I (0-0.045) ng/ml Total Protein (6.4-8.2) gm/dl Albumin (3.4-5.0) gm/dl Globulin (2.5-4.0) gm/dl Albumin/Globulin Ratio (0.9-2) Beta-Hydroxybutyric Acd (0.2-2.81) mg/dl Administered Medications Discontinued Medications Acetaminophen (Acetaminophen 500 Mg Tab) 1,000 mg PO NOW STA Stop: 04/28/21 09:16 Last Admin: 04/28/21 09:25 Dose: 1,000 mg Documented by: [id number] Dexamethasone Sodium Phosphate (DexamethasonePf 10 Mg/Ml Vial) 10 mg IV NOW ONE Stop: 04/28/21 09:08 Last Admin: 04/28/21 09:18 Dose: 10 mg Documented by: [id number] Imaging Data Radiologist's Impression: Chest X-Ray 04/28/21 09:07 SINGLE VIEW CHEST CLINICAL HISTORY: Sepsis. FINDINGS: 2 AP, portable, upright chest radiographs are compared to study dated 02/18/2021. The heart is top normal for projection. Multifocal airspace opacities are seen throughout both lungs with lower lobe predominance. No large pleural effusion or pneumothorax is identified. The skeletal structures appear osteopenic. The bony thorax is grossly intact. IMPRESSION: Multifocal airspace opacities are seen throughout both lungs with a lower lobe predominance. Differential considerations include pulmonary edema and/or multifocal pneumonia. Clinical correlation will be required and radiographic follow-up to resolution is recommended. ACT 112: Negative or not required by law. Electronically signed by: Max Zepeda M.D. 04/28/2021 9:35 AM Discharge Plan Visit Data Chief Complaint: Shortness of Breath/Dyspnea Stated Complaint: SOB, COVID + ED Provider: Pedro Moreno Discharge Problem: Pneumonia due to 2019 novel coronavirus, Hypoxia, Acute hyperglycemia, Acute hyponatremia, JUAN (acute kidney injury) Patient Disposition: Being Evaluated by Hospitalist Forms Stand Alone Forms: My [facility] Prescriptions Prescriptions: No Action atorvastatin 40 mg Tablet 40 mg PO HS RF: 0 prednisone 20 mg Tablet 40 mg PO UD PRN (Reason: copd rescue kit) RF: 0 amlodipine 5 mg Tablet 5 mg PO HS RF: 0 aspirin 81 mg Tablet,Delayed Release (Dr/Ec) 81 mg PO QAM RF: 0 tramadol 50 mg Tablet 50 mg PO Q8 PRN (Reason: Pain) RF: 0 torsemide 100 mg Tablet 50 mg PO Q OTHER DAY RF: 0 Caverject 40 mcg Recon Soln 40 mcg INTRA-CAVERNOSAL UD PRN (Reason: Sexual Activity) RF: 0 tamsulosin 0.4 mg Capsule 0.4 mg PO QAM RF: 0 levothyroxine 50 mcg Tablet 50 mcg PO QAM RF: 0 glimepiride 4 mg Tablet 4 mg PO QAM RF: 0 albuterol sulfate 90 mcg/actuation Hfa Aerosol Inhaler 2 puff INHALATION Q4 PRN (Reason: sob,cough or wheeze) RF: 0 pioglitazone 30 mg Tablet 30 mg PO QAM RF: 0 lisinopril 40 mg Tablet 40 mg PO HS RF: 0 finasteride 5 mg Tablet 5 mg PO QAM RF: 0 sildenafil (pulm.hypertension) [Revatio] 20 mg Tablet 40 - 60 mg PO UD MDD 1dose PRN (Reason: Sexual Activity) RF: 0 budesonide-formoterol 80-4.5 mcg/actuation Hfa Aerosol Inhaler 2 puff INHALATION BID RF: 0 omega 1-gul-pjj-fish oil [Fish Oil] 60-90-500 mg Capsule 1 cap PO QAM RF: 0 Trulicity 1.5 mg/0.5 mL Pen Injector 1.5 mg SUBCUT WK RF: 0 testosterone cypionate 200 mg/mL Kit 200 mg IM .EVERY 14 DAYS RF: 0 fenofibrate 54 mg tablet 54 mg PO DAILY RF: 0 sodium chloride [Saline Mist] 0.65 % Aerosol,Rufus 2 spray INTRANASAL UD PRN (Reason: Congestion) RF: 0 ascorbic acid (vitamin C) 1,000 mg Tablet 1 g PO DAILY RF: 0 ciprofloxacin HCl [Cipro] 500 mg tablet 500 mg PO BID Qty: 28 RF: 0 Referrals Referrals: Max Rosario MD [Primary Care Provider] -
[2021-04-28 09:19] LABS: Hematocrit (blood only) 45.5 % (42-52); Hemoglobin 16.4 g/dL (14.0-18.0); Lymphocytes # (auto) 0.78 K/uL (1.2-3.4); Lymphocytes % (auto) 18.9 %; Mean Corpuscular Hemoglobin 32.1 pg (25-34); Mean Platelet Volume 11.2 fL (7.4-10.4); Monocytes # (auto) 0.28 K/uL (0.11-0.59); Monocytes % (auto) 6.8 %; Neutrophils # (auto) 3.07 K/uL (1.4-6.5); Neutrophils % (auto) 74.3 %; Platelet Count 143 K/uL (130-400); RDW Coefficient of Variation 13.1 % (11.5-14.5); Red Blood Count 5.11 M/uL (4.7-6.1); White Blood Count 4.13 K/uL (4.8-10.8)
--- NOTE | 2021-04-28 09:37 | XRay Report ---
SINGLE VIEW CHEST CLINICAL HISTORY: Sepsis. FINDINGS: 2 AP, portable, upright chest radiographs are compared to study dated 02/18/2021. The heart is top normal for projection. Multifocal airspace opacities are seen throughout both lungs with lower lobe predominance. No large pleural effusion or pneumothorax is identified. The skeletal structures appear osteopenic. The bony thorax is grossly intact. IMPRESSION: Multifocal airspace opacities are seen throughout both lungs with a lower lobe predominan ce. Differential considerations include pulmonary edema and/or multifocal pneumonia. Clinical correla tion will be required and radiographic follow-up to resolution is recommended. ACT 112: Negative or not required by law. Electronically signed by: Max Zepeda M.D. 04/28/2021 9:35 AM
[2021-04-28 09:44] LABS: Partial Thromboplastin Time 27.6 Seconds (21.0-31.0); Prothrombin Time 10.2 Seconds (9.0-12.0)
[2021-04-28 10:00] LABS: Albumin Globulin Ratio 0.7 (0.9-2); Albumin Level 2.9 gm/dl (3.4-5.0); BUN Creatinine Ratio 17.6 (10-20); Bilirubin,Total 0.4 mg/dl (0.2-1); Creatinine Clr Calc Pharmacy 42.2 ml/min; Est GFR (African American) 31.9 ml/min; Est GFR (Non-African American) 27.5 ml/min; Globulin 4.3 gm/dl (2.5-4.0); Magnesium 1.8 mg/dl (1.8-2.4); Potassium 4.4 mmol/L (3.5-5.1); Total Protein 7.2 gm/dl (6.4-8.2); Troponin I 0.054 ng/ml (0-0.045)
[2021-04-28] MEDS ORDERED: NovoLIN-R INSULIN PER UNIT CHARGE IV STA (10:06)
[2021-04-28 10:16] LABS: Beta-Hydroxybutyrate 2.72 mg/dl (0.2-2.81)
[2021-04-28] MEDS ORDERED: SODIUM CHLORIDE 0.9% 1000ML 500 ML IV ONE (10:16)
--- NOTE | 2021-04-28 10:32 | History & Physical Report ---
Date of Service April 28, 2021 Assessment & Plan (1) Sepsis: (2) Pneumonia due to 2019 novel coronavirus: (3) Hypoxia: (4) Elevated troponin: (5) Acute renal failure superimposed on stage 3b chronic kidney disease: (6) T2DM (type 2 diabetes mellitus): (7) DVT prophylaxis: Plan: This is a 65-year-old male who has significant past medical history of T2DM, COPD, HTN, HLD, fatty liver, ROWDY on CPAP, CKD stage IIIb with baseline creatinine 1.7-1.8 who presents to ED due to worsening shortness of breath x2 days. Tested positive for SARS COV2 -19 04/26/21. Sx have been ongoing and worsening for ~ 3 weeks. CXR consistent with Multifocal airspace opacities are seen throughout both lungs with a lower lobe predominance. Procal 0.11, ESR and CRP pending, Dimer pending Pt meets Sepsis criteria 2/2 to tachycardia and fever in setting of known covid- 19 infection. Blood and urine cultures ordered Sepsis Hypoxia COVID-19 Pneumonia admit to PCU continue supplemental oxygen aggressive pulmonary toilet with duonebs, ISP, Flutter valve, self proning Does not meet criteria for remdesivir given renal fxn and duration of sx received 10mg IV dexamethsone in ED Likely will continue dexamethasone; however very cautiously in setting of hyperglycemia Given hypoxia and sinus tachycardia PE also consideration; however given renal fxn unable to obtain CTA; given pandemic unable to obtain VQ scan will obtain d dimer - expecting it to be elevated in setting of covid-19 but will evaluate severity, consider heparinizing empirically due to high risk for PE He does have evidence of pulmonary disease certainly causing his hypoxia. ESR/CRP, dimer pending prescribed doxycycline in outpt setting, will continue and complete course Elevated troponin NSTEMI likely demand ischemia in setting of acute illness no ST t wave changes, or chest pain will cycle troponin for now Sinus tachycardia possibly in setting of acute illness, vs karla, vs PE continue gentle IVF, pro bnp pending want to keep on yolk spray drier side given covid Acute on chronic CKD 3 baseline cr 1.7-1.8 follows GMG nephro avoid nephrotoxic agents, hold lisinopril and torsemide gentle IVF in ED follow bmp T2DM with hyperglycemia last a1c 8.3 01/2021, obtain a1c in a.m. consult glycemic pharmacist in setting of hyperglycemia and dexamethasone use discussed with ED pharmacist, after 8 units Regular insulin pt still 351 will start NPH along with insulin gtt hold home agents COPD continue symbicort nebs ROWDY on CPAP CPAP at HS is tolerated HTN bp elevated continue amloidpine hold lisinopril, torsemide for now - re eval daily DVT ppx: SQ Heparin 7,500 units Q8 Dispo: PCU, likely to remain admitted for several days PCP: Marlene FULL CODE Pt was seen and examined in collaboration with Dr. Alexander, please see addendum The chart was completed utilizing [employer] Speech voice recognition software. Grammatical errors, random word insertions, pronoun errors, and incomplete sentences are an occasional consequence of this system due to software limitations, ambient noise, and hardware issues. Any formal questions or concerns about the content, text, or information contained within the body of this dictation should be directly addressed to the provider for clarification. History of Present Illness Chief Complaint: Worsening SOB x 2 days. Primary Care Provider: Max Rosario MD This is a 65-year-old male who has significant past medical history of T2DM, COPD, HTN, HLD, fatty liver, ROWDY on CPAP, CKD stage IIIb with baseline creati nine 1.7-1.8 who presents to ED due to worsening shortness of breath x2 days.Of significance patient has been suffering from URI symptoms for the past 3 weeks. He was seen in clinic On 04/26 due to symptoms now, "going to his chest," and he tested positive for the novel coronavirus. He is unvaccinated.He further complains of fever, fatigue, poor appetite, poor intake, productive cough with purulent sputum and symptoms overall getting worse. When in clinic he was prescribed oral prednisone and doxycycline.In ED patient was found to be hypoxic at 86% on room air. He is currently requiring 4 L of oxygen to maintain saturation. He is otherwise hemodynamically stable but he does meet sepsis criteria secondary to fever and tachycardia.His chest x-ray is consistent with multifocal pneumonia. He does have mildly elevated troponin at 0.058 EKG is consistent with sinus tachycardia without ST or T wave changes. He denies any lightheadedness, dizziness, chest pain, palpitations, hemoptysis, nausea, vomiting, abdominal pain, change in bowel or urinary habits. He did receive 10 mg IV dexamethasone. He is also significantly hyperglycemic and was ordered 8 units of IV regular insulin. Allergies Allergy/AdvReac Type Severity Reaction Status Date / Time atenolol Allergy Intermediate turns Verified 02/19/21 01:42 bright yellow Home Medications Medication Instructions Recorded Confirmed Type albuterol sulfate 90 mcg/actuation 2 puff INHALATION Q4 PRN 02/01/19 04/28/21 History aerosol inhaler alprostadil 40 mcg intracavernosal 40 mcg INTRA-CAVERNOSAL UD PRN 02/01/19 04/28/21 History solution (Caverject) amlodipine 5 mg tablet 5 mg PO HS 02/01/19 04/28/21 History aspirin 81 mg tablet,delayed 81 mg PO QAM 02/01/19 04/28/21 History release atorvastatin 40 mg tablet 40 mg PO HS 02/01/19 04/28/21 History budesonide-formoterol HFA 80 2 puff INHALATION BID 02/01/19 04/28/21 History mcg-4.5 mcg/actuation aerosol inhaler dulaglutide 1.5 mg/0.5 mL 1.5 mg SUBCUT WK 02/01/19 04/28/21 History subcutaneous pen injector (Trulicity) finasteride 5 mg tablet 5 mg PO QAM 02/01/19 04/28/21 History glimepiride 4 mg tablet 4 mg PO QAM 02/01/19 04/28/21 History levothyroxine 50 mcg tablet 50 mcg PO QAM 02/01/19 04/28/21 History lisinopril 40 mg tablet 40 mg PO HS 02/01/19 04/28/21 History omega 0-wmj-sje-fish oil 60 mg-90 1 cap PO QAM 02/01/19 04/28/21 History mg-500 mg capsule (Fish Oil) pioglitazone 30 mg tablet 30 mg PO QAM 02/01/19 04/28/21 History prednisone 20 mg tablet 40 mg PO UD PRN 02/01/19 04/28/21 History sildenafil (pulm.hypertension) 20 40 - 60 mg PO UD PRN MDD 1dose 02/01/19 04/28/21 History mg tablet (Revatio) tamsulosin 0.4 mg capsule 0.4 mg PO QAM 02/01/19 04/28/21 History testosterone cypionate 200 mg/mL 200 mg IM .EVERY 14 DAYS 02/01/19 04/28/21 History intramuscular kit torsemide 100 mg tablet 50 mg PO Q OTHER DAY 02/01/19 04/28/21 History tramadol 50 mg tablet 50 mg PO Q8 PRN 02/01/19 04/28/21 History ascorbic acid (vitamin C) 1,000 mg 1 g PO DAILY 02/19/21 04/28/21 History tablet fenofibrate 54 mg tablet 54 mg PO DAILY 02/19/21 04/28/21 History sodium chloride 0.65 % nasal spray 2 spray INTRANASAL UD PRN 02/19/21 04/28/21 History aerosol (Saline Mist) doxycycline hyclate 100 mg capsule 100 mg PO BID 04/28/21 04/28/21 History Past Med/Surg History Medical History BPH (benign prostatic hyperplasia) Chronic obstructive pulmonary disease Diabetes mellitus, type 2 Hearing deficit History of bleeding ulcers History of colon polyps Hyperlipidemia Hypertension Hypothyroidism Sleep apnea cpap Tremor of left hand Surgical History History of colonoscopy History of esophagogastroduodenoscopy (EGD) History of tooth extraction Hx of vasectomy Status post LASIK surgery of both eyes Family History Grandmother (Maternal) Family history of diabetes mellitus Other No family history of adverse response to anesthesia Social History Smoking Status: Former smoker Tobacco Type: Cigarettes Second Hand Exposure: Yes (parents smoked); Hx Alcohol Use: No Hx Substance Use: No Preferred Language: Luxembourger Communication Ability: Effective Tab Cutter Required: No Beliefs That Will Affect Care: None Current Living Situation: Spouse and Family Current Living Situation Comment: Lives with and 2 children Feels Safe at Home: Yes Assistive Devices: CPAP and Glasses Review of Systems Review of Systems: All systems reviewed & are unremarkable except as noted in HPI & below Physical Exam Physical Exam: Please refer to Dr. Alexander's addendum for physical exam findings. Results & Data Results & Data ([facility]) Vital Signs (Past 12 Hours) Vital Signs Temp Pulse Resp BP Pulse Ox 04/28/21 09:12 111 H 94 04/28/21 08:54 39.6 C H 103 H 32 H 159/82 H 94 Diagnostic Findings Chest X-Ray 04/28/21 09:07 SINGLE VIEW CHEST CLINICAL HISTORY: Sepsis. FINDINGS: 2 AP, portable, upright chest radiographs are compared to study dated 02/18/2021. The heart is top normal for projection. Multifocal airspace opacities are seen throughout both lungs with lower lobe predominance. No large pleural effusion or pneumothorax is identified. The skeletal structures appear osteopenic. The bony thorax is grossly intact. IMPRESSION: Multifocal airspace opacities are seen throughout both lungs with a lower lobe predominance. Differential considerations include pulmonary edema and/or multifocal pneumonia. Clinical correlation will be required and radiographic follow-up to resolution is recommended. ACT 112: Negative or not required by law. Electronically signed by: Max Zepeda M.D. 04/28/2021 9:35 AM Medications Administered Medication List Discontinued Medications Acetaminophen (Acetaminophen 500 Mg Tab) 1,000 mg PO NOW STA Stop: 04/28/21 09:16 Last Admin: 04/28/21 09:25 Dose: 1,000 mg Documented by: [id number] Dexamethasone Sodium Phosphate (DexamethasonePf 10 Mg/Ml Vial) 10 mg IV NOW ONE Stop: 04/28/21 09:08 Last Admin: 04/28/21 09:18 Dose: 10 mg Documented by: [id number] ECG Rate (beats per minute): 111 Rhythm: sinus tachycardia COVID-19 Results Results COVID-19 Adm Lab Results: RBC 5.11 M/uL (4.7-6.1) 04/28/21 WBC 4.13 K/uL (4.8-10.8) L 04/28/21 Hgb 16.4 g/dL (14.0-18.0) 04/28/21 Hct 45.5 % (42-52) 04/28/21 Plt Count 143 K/uL (130-400) 04/28/21 Neutrophils (%) (Auto) 74.3 % 04/28/21 Lymphocytes (%) (Auto) 18.9 % 04/28/21 Monocytes # (Auto) 0.28 K/uL (0.11-0.59) 04/28/21 Eosinophils # (Auto) 0.00 K/uL (0-0.5) 04/28/21 Immature Granulocyte % (Auto) 0.0 % 04/28/21 Neutrophils # (Auto) 3.07 K/uL (1.4-6.5) 04/28/21 Lymphocytes # (Auto) 0.78 K/uL (1.2-3.4) L 04/28/21 Monocytes # (Auto) 0.28 K/uL (0.11-0.59) 04/28/21 Eosinophils # (Auto) 0.00 K/uL (0-0.5) 04/28/21 Basophils # (Auto) 0.00 K/uL (0-0.2) 04/28/21 Immature Granulocyte # (Auto) 0.00 K/uL (0.00-0.02) 04/28/21 Na 129 mmol/L (136-145) L 04/28/21 K 4.4 mmol/L (3.5-5.1) 04/28/21 Cl 97 mmol/L (98-107) L 04/28/21 CO2 21 mmol/L (21-32) 04/28/21 Anion Gap 11.0 (3-11) 04/28/21 BUN 42 mg/dl (7-18) H 04/28/21 Creatinine 2.41 mg/dl (0.6-1.4) H 04/28/21 BUN/Creatinine Ratio 17.6 (10-20) 04/28/21 Glucose Level 428 mg/dl (70-99) H* 04/28/21 Ca 9.0 mg/dl (8.5-10.1) 04/28/21 Total Bilirubin 0.4 mg/dl (0.2-1) 04/28/21 AST/SGOT 31 U/L (15-37) 04/28/21 ALT/SGPT 46 (12-78) 04/28/21 Alkaline Phosphatase 47 U/L (45-117) 04/28/21 Total Protein 7.2 gm/dl (6.4-8.2) 04/28/21 Albumin 2.9 gm/dl (3.4-5.0) L 04/28/21 Globulin 4.3 gm/dl (2.5-4.0) H 04/28/21 Albumin/Globulin Ratio 0.7 (0.9-2) L 04/28/21 Troponin I 0.054 ng/ml (0-0.045) H* 04/28/21 HT-Uba-G-Type Natriuretic Pep 131 pg/ml (0-900) 04/28/21 CRP 5.02 mg/dl (0-0.29) H 04/28/21 Procalcitonin 0.11 ng/ml (0-0.5) 04/28/21 D-Dimer Pending 04/28/21 PTT 27.6 Seconds (21.0-31.0) 04/28/21 INR 1.0 (0.9-1.1) 04/28/21 COVID-19 PCR POSITIVE (Negative) A* 04/28/21 Influenza Virus Type A (PCR) Negative (Neg) 04/28/21 Influenza Virus Type B (PCR) Negative (Neg) 04/28/21 Chest X-Ray 04/28/21 Code Status & VTE Plan Code Status FULL CODE VTE Prophylaxis Plan VTE Prophylaxis will be ordered: Yes Supervising Physician Co-Signing Physician Notes I saw this patient with the physician printing assistant, I participated in the history, physical, review of systems, and physical exam. I reviewed the medications with the patient and the physician printing assistant and helped reconcile the medications. I helped take a detailed family and social history as well. I formulated the assessment and plan personally with the physician printing assistant and went over it with the patient. Physical Exam Gen-AAO x 3, NAD, Afebrile, Obese Head-NCAT, EOMI, PERRLA, Anicteric Sclera, No Posterior Pharyngeal Erythema Neck-Supple, No JVD, No Thyromegaly, No Masses, No LAD, No Bruits Lungs-Clear to Auscultation Bilaterally, Obese, No Rales, No Rhonchi, No Wheezing, No Crepitus Chest-No S4, +S1, +S2, No S3, No Murmurs, No Rubs, No Gallops, No Ectopy Abdomen-Soft, Bowel Sounds Present, Non Tender, Non Distended, No Hepatomegaly, No Splenomegaly, No Palpable Masses, No Rebound, No Rigidity, No Guarding Musculoskeletal-Full Range of Motion Bilaterally, No CVAT Extremities-No Cyanosis, No Clubbing, No Edema Nuero-Cranial Nerves II-XII grossly intact, Motor WNL, DTRs WNL, Strength WNL, Non Focal Psych-Normal Mood
[2021-04-28 10:36] LABS: Base Excess VBG -3.4 mEq/L; Oxygen Saturation VBG 87.9 %; pH VBG 7.41 (7.36-7.41)
[2021-04-28 10:45] LABS: Appearance Urine Clear (Clear); Bacteria Urine Automated Negative (Negative); Bilirubin Urine Negative (Negative); Blood Urine 1+ (Negative); Color Urine Yellow; Epithelial Cell Urine Auto >30 /lpf (0-5); Glucose Urine UA 3+ (Negative); Ketones Urine Trace (Negative); Leukocyte Esterase Urine Negative (Negative); Nitrite Urine Negative (Negative); Protein Urine 3+ (Negative); RBC Urine Automated 0-4 /hpf (0-4); Specific Gravity Urine 1.029 (1.000-1.030); Urobilinogen Urine Negative (Negative)
[2021-04-28 11:18] LABS: Influenza A virus by PCR Negative (Neg); Influenza B virus by PCR Negative (Neg); RSV by PCR Negative (Neg)
[2021-04-28] MEDS ORDERED: STAT IV Infusion **Titration per Protocol STA (11:29)
[2021-04-28 11:32] LABS: SARS CoV2 RNA(COVID-19) InHosp POSITIVE (Negative)
[2021-04-28] MEDS ORDERED: GLUCOSE 40% GEL 15 GM TUBE PO PRN ×2 (11:45→14:54)
[2021-04-28] MEDS ORDERED: NovoLIN-R BOLUS FROM BAG IV ONE (11:45)
[2021-04-28] MEDS ORDERED: NovoLIN-N (NPH) PER UNIT CHARGE SQ ONE (11:45)
[2021-04-28] MEDS ORDERED: GLUCAGON FOR INJ 1 MG VIAL IM PRN (11:45)
[2021-04-28] MEDS ORDERED: CARBOHYDRATES FOR HYPOGLYCEMIA PO PRN ×2 (11:45→14:54)
[2021-04-28] MEDS ORDERED: GLUCOSE 10 TABS/TUBE PO PRN ×2 (11:45→14:54)
[2021-04-28] MEDS ORDERED: DEXTROSE 50% 50 ML SYRINGE IV PRN ×2 (11:45→14:54)
[2021-04-28 11:59] LABS: D Dimer 870 ug/L FEU (0-500)
[2021-04-28] MEDS: INSULIN REGULAR 250 UNITS in SODIUM CHLORIDE 0.9% 247.5 ML IV SCH (12:05)
[2021-04-28 12:48] LABS: Amorphous Sediment Urine Present (None Prsent)
[2021-04-28] MEDS: INSULIN ASPART PER UNIT SC SCH ×3 (13:17→22:22)
[2021-04-28] MEDS ORDERED: ALUMINUM/MAGNESIUM SUSP 30 ML UDC PO PRN (14:54)
[2021-04-28] MEDS ORDERED: POLYETHYLENE (MIRALAX) 17 GM PACK PO PRN (14:54)
[2021-04-28] MEDS ORDERED: HEPARIN SOD 5,000 UNIT/0.5 ML VIAL SQ SCH (14:54)
[2021-04-28] MEDS ORDERED: MAGNESIUM HYDROXIDE SUSP 30 ML UDC PO PRN (14:54)
[2021-04-28] MEDS ORDERED: ONDANSETRON INJ 2 MG/ML 2 ML VIAL IV PRN (14:54)
[2021-04-28] MEDS ORDERED: SODIUM CHLORIDE 0.65% NA SOLN 45 ML (OCEAN) NAE PRN (14:54)
[2021-04-28] MEDS ORDERED: GLUCAGON FOR INJ 1 MG VIAL SQ PRN (14:54)
[2021-04-28] MEDS ORDERED: Heparin IV Adult Wt-Based Low-Dose *NO* Bolus Protocol IV SCH (15:37)
[2021-04-28] MEDS ORDERED: HEPARIN 25000 UNIT/500 ML D5W IV ONE (16:05)
[2021-04-28] MEDS: HEPARIN SODIUM/DEXTROSE 25,000 UNITS/500 ML BAG IV SCH (16:16)
[2021-04-28] MEDS: ALBUT/IPRATROP 3MG/0.5MG NEB 3 ML VIAL NEB SCH ×2 (16:29→19:46)
[2021-04-28] MEDS: amLODIPine BESYLATE 5 MG TAB PO SCH (20:54)
[2021-04-28] MEDS: ATORVASTATIN 40 MG TAB PO SCH (20:55)
[2021-04-28] MEDS: DOXYCYCLINE HYCLATE 100 MG CAP PO SCH (20:55)
[2021-04-28 22:56] LABS: Partial Thromboplastin Ratio 1.4; Partial Thromboplastin Time 35.8 Seconds (21.0-31.0)
[2021-04-28] MEDS ORDERED: HEPARIN SOD (PORCINE) 1000 UNIT/ML IV ONE (23:45)
[2021-04-29] MEDS: ALBUTEROL HFA 8 GM INHALER INH PRN (05:19)
[2021-04-29] MEDS: LEVOTHYROXINE SODIUM 50 MCG TABLET PO SCH (06:29)
[2021-04-29] MEDS: ACETAMINOPHEN 325 MG TAB PO PRN ×2 (06:34→20:18)
[2021-04-29 07:18] LABS: Hemoglobin 15.1 g/dL (14.0-18.0); Immature Granulocytes # (auto) 0.01 K/uL (0.00-0.02); Immature Granulocytes % (auto) 0.3 %; Lymphocytes # (auto) 0.77 K/uL (1.2-3.4); Lymphocytes % (auto) 21.6 %; Mean Corpuscular Hemoglobin 31.5 pg (25-34); Mean Corpuscular Hgb Conc 35.1 g/dL (32-36); Mean Corpuscular Volume 89.8 fL (80-100); Mean Platelet Volume 10.9 fL (7.4-10.4); Monocytes # (auto) 0.28 K/uL (0.11-0.59); Monocytes % (auto) 7.8 %; Neutrophils # (auto) 2.51 K/uL (1.4-6.5); Neutrophils % (auto) 70.3 %; Platelet Count 140 K/uL (130-400); RDW Coefficient of Variation 13.2 % (11.5-14.5); RDW Standard Deviation 43.6 fL (36.4-46.3); Red Blood Count 4.79 M/uL (4.7-6.1); White Blood Count 3.57 K/uL (4.8-10.8)
[2021-04-29 07:38] LABS: Partial Thromboplastin Ratio 1.9; Partial Thromboplastin Time 50.4 Seconds (21.0-31.0)
[2021-04-29 07:48] LABS: Albumin Level 2.6 gm/dl (3.4-5.0); BUN Creatinine Ratio 25.8 (10-20); Creatinine Clr Calc Pharmacy 44.2 ml/min; Est GFR (African American) 33.2 ml/min; Est GFR (Non-African American) 28.7 ml/min; Magnesium 2.1 mg/dl (1.8-2.4); Potassium 4.5 mmol/L (3.5-5.1)
[2021-04-29 07:54] LABS: Albumin Globulin Ratio 0.6 (0.9-2); Bilirubin,Total 0.4 mg/dl (0.2-1); Total Protein 6.6 gm/dl (6.4-8.2)
[2021-04-29] MEDS: ALBUT/IPRATROP 3MG/0.5MG NEB 3 ML VIAL NEB SCH ×4 (07:59→20:13)
[2021-04-29] MEDS: DOXYCYCLINE HYCLATE 100 MG CAP PO SCH ×2 (08:19→20:19)
[2021-04-29] MEDS: FENOFIBRATE NANOCRYSTALLIZED 48 MG TABLET PO SCH (08:20)
[2021-04-29] MEDS: OMEGA-3 (PURIFIED FISH OIL) 1 GM CAP PO SCH (08:20)
[2021-04-29] MEDS: ASCORBIC ACID 500 MG TAB PO SCH (08:20)
[2021-04-29] MEDS: TAMSULOSIN HCL 0.4 MG CAP PO SCH (08:21)
[2021-04-29] MEDS: ASPIRIN 81 MG ECTAB PO SCH (08:21)
[2021-04-29] MEDS: dexAMETHasone 6 MG in SYRINGE 0 ML IV SCH (08:22)
[2021-04-29] MEDS: FINASTERIDE 5 MG TAB PO SCH (08:22)
[2021-04-29] MEDS: FLUTICASONE/VILANTEROL 100/25MCG 14 PUFFS/INHALER INH SCH (08:23)
[2021-04-29] MEDS: INSULIN ASPART PER UNIT SC SCH ×4 (08:54→20:30)
[2021-04-29 09:09] LABS: Estimated Average Glucose 249 mg/dl; Hemoglobin A1C 10.3 % (4.5-5.6)
[2021-04-29] MEDS ORDERED: PHARMACY GLYCEMIC MGMT CONSULT PRN (12:22)
[2021-04-29] MEDS ORDERED: BUMETANIDE 2 MG in SYRINGE 0 ML IV ONE (12:30)
[2021-04-29] MEDS: HEPARIN SODIUM/DEXTROSE 25,000 UNITS/500 ML BAG IV SCH (12:43)
[2021-04-29] MEDS ORDERED: INSULIN GLARGINE SOLOSTAR 100 UNITS/ML 3 ML PEN SC ONE (13:30)
[2021-04-29] MEDS ORDERED: INSULIN HUMAN NPH SC ONE (13:30)
--- NOTE | 2021-04-29 13:51 | Pharmacy Report ---
Pharmacy Glycemic Short Note 2 - Date of Service April 29, 2021 - Glycemic Short BSG Results (Last 24 hours): 04/28/21 04/28/21 04/28/21 15:27 16:12 17:14 Glucose POC Glucose 327 H* 302 H* 272 H 04/28/21 04/28/21 04/28/21 18:11 19:37 20:51 Glucose POC Glucose 242 H 240 H 199 H 04/28/21 04/28/21 04/29/21 22:06 23:32 00:44 Glucose POC Glucose 180 H 142 H 159 H 04/29/21 04/29/21 04/29/21 01:47 02:41 03:47 Glucose POC Glucose 150 H 139 H 150 H 04/29/21 04/29/21 04/29/21 04:41 05:58 06:39 Glucose POC Glucose 131 H 156 H 140 H 04/29/21 04/29/21 04/29/21 06:55 07:37 09:46 Glucose 151 H POC Glucose 159 H 257 H 04/29/21 11:38 Glucose POC Glucose 261 H OUTPATIENT ANTIDIABETIC REGIMEN: * Trulicity SQ on Fridays * Amaryl 4mg PO QAM * Pioglitzaone 30mg PO QAM * A1c = 10.3% on 04/29/21 ASSESSMENT: * 65yo T2DM male admitted for COVID PNA. * Pt with poor outpatient control per A1c * Pt with SEVERE hyperglycemia secondary to poor baseline control, infection, stress, and especially steroids with dexamethasone * Pt initiated on IV insulin infusion + given NPH for dex. * Discussed case with hospitalist and RN. OK to transition off of IV insulin infusion. * Based on stable insulin rate of ~ 4.4 units/hr expecting patient to require ~ 120 units/day of insulin. Will give this as basal with Lantus, NPH for steroid induced hyperglycemia, and Novolog for meals/correctional PLAN FOR INPATIENT GLYCEMIC CONTROL: * Hold outpatient diabetes medications * Basal insulin * Lantus 30 units SQ daily in AM- first dose NOW * NPH 40 units SQ daily with dexamethasone * IV insulin infusion - will overlap IV with SQ x ~ 4 hrs. Give NPH + Lantus now and then dc IV insulin infusion after novolog dinner coverage given. Overnight checks and correction at 0000 & 0400 tonight. * Bolus insulin * NovoLog per scale ACHS or Q6hrs while NPO * Goal Range: Low 110 mg/dL - High 140 mg/dL * Correction Factor: 15 mg/dL/unit * Nutritional / Prandial insulin per carb ratio of 1 unit per 4 grams CHO consumed PLAN FOR DISCHARGE: * TBD, but patient will likely require insulin at dc based on A1c > 10%
--- NOTE | 2021-04-29 15:29 | Hospitalist Progress Note ---
Date of Service April 29, 2021 Assessment & Plan (1) Sepsis: Plan: Secondary to COVID-19 virus infection Prescribed doxycycline in outpt setting, will continue and complete course Pt meets Sepsis criteria 2/2 to tachycardia and fever in setting of known covid- 19 infection. Blood and urine cultures ordered (2) Pneumonia due to 2019 novel coronavirus: Plan: Tested positive for SARS COV2 -19 04/26/21. Sx have been ongoing and worsening for ~ 3 weeks. CXR consistent with Multifocal airspace opacities are seen throughout both lungs with a lower lobe predominance. aggressive pulmonary toilet with duonebs, ISP, Flutter valve, self proning Does not meet criteria for remdesivir given duration of sx Has been receiving IV dexamethsone CRP is 7.07 as of 04/29/2021 Continue supplemental oxygen-he has been feeling better since admission Has been on intravenous heparin for possible pulmonary embolism Given hypoxia and sinus tachycardia PE also consideration; however given renal fxn unable to obtain CTA; given pandemic unable to obtain VQ scan Will obtain d dimer - expecting it to be elevated in setting of covid-19 but will evaluate severity, consider heparinizing empirically due to high risk for PE D-dimer is elevated at 870 but age-adjusted D-dimer cutoff is 630 Doubt any pulmonary embolism Noted to be tachycardic on admission and tachypneic on admission to We will discontinue intravenous heparin and give prophylactic dose of heparin (3) Hypoxia: Plan: As above (4) Elevated troponin: Plan: Elevated troponin-likely secondary to demand ischemia NSTEMI-doubt any NSTEMI Likely demand ischemia in setting of acute illness No ST t wave changes, or chest pain (5) Acute renal failure superimposed on stage 3b chronic kidney disease: Plan: Acute on chronic CKD 3 baseline cr 1.7-1.8 follows G nephro avoid nephrotoxic agents, hold lisinopril and torsemide gentle IVF in ED We will give a small dose of intravenous bumetanide to keep 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 consult glycemic pharmacist in setting of hyperglycemia and dexamethasone use discussed with ED pharmacist, after 8 units Regular insulin pt still 351 will start NPH along with insulin gtt hold teacher home therapy Was on insulin drip-glycemic pharmacy has been consulted Patient will be put back on subcu insulin (7) DVT prophylaxis: Plan: This is a 65-year-old male who has significant past medical history of T2DM, COPD, HTN, HLD, fatty liver, ROWDY on CPAP, CKD stage IIIb with baseline creatinine 1.7-1.8 who presents to ED due to worsening shortness of breath x2 days. Sinus tachycardia possibly in setting of acute illness, vs karla, vs PE continue gentle IVF, pro bnp pending want to keep on fiber drier operator side given covid COPD continue symbicort nebs ROWDY on CPAP CPAP at HS is tolerated HTN bp elevated continue amloidpine hold lisinopril, torsemide for now - re eval daily DVT ppx: SQ Heparin 7,500 units Q8 Dispo: PCU, likely to remain admitted for several days PCP: Marlene FULL CODE Admission and Anticipated Discharge Date Admission Date: April 28, 2021 Subjective 04/29/2021 The patient was seen and examined in telemetry unit and in the Covid room He has been feeling a little better since admission and has been on BiPAP with 7 L of oxygen to maintain saturation Denies any chest pain or palpitation, no fever and no chills, no abdominal pain nausea and or vomiting Review of Systems Review of Systems: All systems reviewed and are unremarkable except as noted below Respiratory: Moderate shortness of breath at rest Physical Exam Physical Exam: In bed with moderate distress due to shortness of breath Constitutional: well developed, well nourished, + ill appearing and + morbidly obese Eyes: PERRL, conjunctivae normal, anicteric sclerae ENMT: external ear and nose normal, oropharynx normal Neck: trachea midline, no thyromegaly Respiratory: + respiratory distress Auscultation: + diminished lung sounds and + crackles (Minimal crackles at the bases) Cardiovascular: Rate/Rhythm: regular rate and regular rhythm; not tachycardic Heart Sounds: normal S1 and normal S2; no murmur Extremities: + edema (1+ edema with chronic skin changes) Gastrointestinal (Abdomen): Inspection/Auscultation: + abdomen distended and normal bowel sounds Percussion/Palpation: abdomen soft; abdomen nontender Musculoskeletal: No acute arthritis in any joint Neurologic: Awake and oriented x3 Lymphatic: no cervical or axillary lymphadenopathy Results & Data Results & Data ([facility]) Vital Signs (Past 12 Hours) Vital Signs Temp Pulse Pulse Resp BP Pulse Ox Pulse Ox 04/29/21 10:47 87 18 92 04/29/21 09:07 93 04/29/21 08:00 78 77 18 95 04/29/21 07:55 78 04/29/21 07:34 36.6 C 80 20 114/68 94 04/29/21 05:21 24 92 04/29/21 05:09 36.4 C L 24 127/68 90 04/29/21 03:50 36.8 C 78 20 122/73 92 04/29/21 01:51 36.8 C 71 22 92 04/29/21 00:00 36.6 C 75 23 126/89 92 Laboratory Results Short CBC 04/29/21 Range/Units 06:55 WBC 3.57 L (4.8-10.8) K/uL Hgb 15.1 (14.0-18.0) g/dL Hct 43.0 (42-52) % Plt Count 140 (130-400) K/uL BMP 04/29/21 06:55 Sodium 135 L Potassium 4.5 Chloride 104 Carbon Dioxide 23 BUN 60 H Creatinine 2.33 H Glucose 151 H Calcium 9.0 Cardiac Enzymes 04/28/21 Range/Units 21:08 Troponin I 0.052 H* (0-0.045) ng/ml Liver Function 04/29/21 Range/Units 06:55 Total Bilirubin 0.4 (0.2-1) mg/dl AST 36 (15-37) U/L ALT 36 (12-78) Alkaline Phosphatase 37 L (45-117) U/L Albumin 2.6 L (3.4-5.0) gm/dl Medications Administered Current Inpatient Medications Acetaminophen (Acetaminophen 325 Mg Tab) 650 mg PO Q4H PRN PRN Reason: Pain or Fever Stop: 05/28/21 14:53 Last Admin: 04/29/21 06:34 Dose: 650 mg Documented by: Al Hydrox/Mg Hydrox/Simethicone (Aluminum/Magnesium Susp 30 Ml Udc) 15 ml PO Q4H PRN PRN Reason: Dyspepsia Stop: 05/28/21 14:53 Albuterol (Albut/Ipratrop 3mg/0.5mg Neb 3 Ml Vial) 3 ml NEB QIDR [facility] Stop: 05/28/21 14:59 Last Admin: 04/29/21 14:39 Dose: 3 ml Documented by: Albuterol (Albuterol Hfa 8 Gm Inhaler) 2 puffs INH Q4 PRN PRN Reason: sob,cough or wheeze Stop: 05/28/21 14:53 Last Admin: 04/29/21 05:19 Dose: 2 puffs Documented by: Amlodipine Besylate (Amlodipine Besylate 5 Mg Tab) 5 mg PO HS [facility] Stop: 05/28/21 20:59 Last Admin: 04/28/21 20:54 Dose: 5 mg Documented by: Ascorbic Acid (Ascorbic Acid 500 Mg Tab) 1,000 mg PO DAILY [facility] Stop: 05/29/21 08:59 Last Admin: 04/29/21 08:20 Dose: 1,000 mg Documented by: Aspirin (Aspirin 81 Mg Ectab) 81 mg PO QAM [facility] Stop: 05/29/21 08:59 Last Admin: 04/29/21 08:21 Dose: 81 mg Documented by: Atorvastatin Calcium (Atorvastatin 40 Mg Tab) 40 mg PO HS [facility] Stop: 05/28/21 20:59 Last Admin: 04/28/21 20:55 Dose: 40 mg Documented by: Dextrose (Dextrose 50% 50 Ml Syringe) 25 - 50 ml IV UD PRN; Protocol PRN Reason: Hypoglycemia Protocol Stop: 05/28/21 11:44 Dextrose (Dextrose 50% 50 Ml Syringe) 25 - 50 ml IV UD PRN; Protocol PRN Reason: Hypoglycemia Protocol Stop: 05/28/21 14:53 Doxycycline Hyclate (Doxycycline Hyclate 100 Mg Cap) 100 mg PO BID [facility] Stop: 05/05/21 20:59 Last Admin: 04/29/21 08:19 Dose: 100 mg Documented by: Fenofibrate (Fenofibrate Nanocrystallized 48 Mg Tablet) 48 mg PO DAILY [facility] Stop: 05/29/21 08:59 Last Admin: 04/29/21 08:20 Dose: 48 mg Documented by: Finasteride (Finasteride 5 Mg Tab) 5 mg PO QAM [facility] Stop: 05/29/21 08:59 Last Admin: 04/29/21 08:22 Dose: 5 mg Documented by: Fish Oil ([place]-3 (Purified Fish Oil) 1 Gm Cap) 1 gm PO QAM [facility] Stop: 05/29/21 08:59 Last Admin: 04/29/21 08:20 Dose: 1 gm Documented by: Fluticasone/Vilanterol (Fluticasone/Vilanterol 100/25mcg 14 Puffs/Inhaler) 1 puffs INH DAILY [facility] Stop: 05/29/21 08:59 Last Admin: 04/29/21 08:23 Dose: 1 puffs Documented by: Glucagon (Glucagon For Inj 1 Mg Vial) 1 mg IM UD PRN; Protocol PRN Reason: Hypoglycemia Protocol Stop: 05/28/21 11:44 Glucagon (Glucagon For Inj 1 Mg Vial) 1 mg SQ UD PRN; Protocol PRN Reason: Hypoglycemia Protocol Stop: 05/28/21 14:53 Glucose (Glucose 40% Gel 15 Gm Tube) 15 - 30 gm PO UD PRN; Protocol PRN Reason: Hypoglycemia Protocol Stop: 05/28/21 11:44 Glucose (Glucose 10 Tabs/Tube) 4 - 8 tabs PO UD PRN; Protocol PRN Reason: Hypoglycemia Protocol Stop: 05/28/21 11:44 Glucose (Glucose 10 Tabs/Tube) 4 - 8 tabs PO UD PRN; Protocol PRN Reason: Hypoglycemia Protocol Stop: 05/28/21 14:53 Glucose (Glucose 40% Gel 15 Gm Tube) 15 - 30 gm PO UD PRN; Protocol PRN Reason: Hypoglycemia Protocol Stop: 05/28/21 14:53 Insulin Human Regular 250 (units/ Sodium Chloride) 250 mls @ 10.8 mls/hr IV .[id number] [facility]; Protocol Stop: 04/29/21 17:00 Last Titration: 04/29/21 14:49 Dose: 10.8 units/hr, 10.8 mls/hr Documented by: Dexamethasone 6 mg/ Syringe 1.5 mls @ 1 mls/min IV DAILY [facility] Stop: 05/08/21 09:02 Last Admin: 04/29/21 08:22 Dose: 1 mls/min Documented by: Heparin Sodium/Dextrose (Heparin Sodium/Dextrose) 25,000 units in 500 mls @ 24 mls/hr IV .[id number] [facility]; Protocol Stop: 05/28/21 15:44 Last Admin: 04/29/21 12:43 Dose: 1,200 units/hr, 24 mls/hr Documented by: Insulin Aspart (Insulin Aspart Per Unit) 0 units SC ACHS [facility] Stop: 05/28/21 11:29 Last Admin: 04/29/21 12:22 Dose: 4 units Documented by: Insulin Aspart (Insulin Aspart Per Unit) 0 units SC TODAY@0000,0400 [facility] Stop: 04/30/21 04:01 Insulin Glargine (Insulin Glargine Solostar 100 Units/Ml 3 Ml Pen) 30 units SC DAILY [facility] Stop: 05/30/21 08:59 Insulin Human NPH (Insulin Human Nph) 40 units SC DAILY [facility] Stop: 05/30/21 08:59 Levothyroxine Sodium (Levothyroxine Sodium 50 Mcg Tablet) 50 mcg PO DAILYBB [facility] Stop: 05/29/21 06:29 Last Admin: 04/29/21 06:29 Dose: 50 mcg Documented by: Magnesium Hydroxide (Magnesium Hydroxide Susp 30 Ml Udc) 30 ml PO Q12H PRN PRN Reason: Constipation Stop: 05/28/21 14:53 Miscellaneous (Carbohydrates For Hypoglycemia ) 15 - 30 gm PO PRN PRN PRN Reason: Hypoglycemia Treatment Stop: 05/28/21 11:44 Miscellaneous (Carbohydrates For Hypoglycemia ) 15 - 30 gm PO UD PRN PRN Reason: Hypoglycemia Protocol Stop: 05/28/21 14:53 Miscellaneous Information (Pharmacy Glycemic Mgmt Consult) 1 ea N/A UD PRN PRN Reason: Consult Stop: 05/29/21 12:21 Miscellaneous Information (Dc Iv Insulin Infusion 1 Ea [place]) 1 ea N/A ONE ONE Stop: 04/29/21 17:01 Ondansetron HCl (Ondansetron Inj 2 Mg/Ml 2 Ml Vial) 4 mg IV Q6H PRN PRN Reason: Nausea Stop: 05/28/21 14:53 Polyethylene Glycol (Polyethylene (Miralax) 17 Gm Pack) 17 gm PO DAILY PRN PRN Reason: Constipation Stop: 05/28/21 14:53 Sodium Chloride (Sodium Chloride 0.65% Na Soln 45 Ml ([place])) 2 sprays JUSTA UD PRN PRN Reason: Congestion Stop: 05/28/21 14:53 Tamsulosin HCl (Tamsulosin Hcl 0.4 Mg Cap) 0.4 mg PO QAM [facility] Stop: 05/29/21 08:59 Last Admin: 04/29/21 08:21 Dose: 0.4 mg Documented by: Tramadol HCl (Tramadol Hcl 50 Mg Tablet) 50 mg PO Q8 PRN PRN Reason: Pain Stop: 05/28/21 14:53
[2021-04-29 15:37] LABS: Partial Thromboplastin Ratio 1.5; Partial Thromboplastin Time 40.1 Seconds (21.0-31.0)
[2021-04-29] MEDS ORDERED: DC IV INSULIN INFUSION 1 EA DEVI ONE (17:00)
[2021-04-29] MEDS: INSULIN REGULAR 250 UNITS in SODIUM CHLORIDE 0.9% 247.5 ML IV SCH (17:23)
[2021-04-29] MEDS: ATORVASTATIN 40 MG TAB PO SCH (20:19)
[2021-04-29] MEDS: HEPARIN SOD 5,000 UNIT/0.5 ML VIAL SQ SCH (20:20)
[2021-04-29] MEDS: amLODIPine BESYLATE 5 MG TAB PO SCH (20:20)
[2021-04-30] MEDS: INSULIN ASPART PER UNIT SC SCH ×6 (04:00→20:45)
[2021-04-30] MEDS: LEVOTHYROXINE SODIUM 50 MCG TABLET PO SCH (05:28)
[2021-04-30] MEDS: HEPARIN SOD 5,000 UNIT/0.5 ML VIAL SQ SCH ×3 (05:29→21:00)
[2021-04-30 06:38] LABS: Hematocrit (blood only) 44.6 % (42-52); Hemoglobin 15.8 g/dL (14.0-18.0); Immature Granulocytes # (auto) 0.01 K/uL (0.00-0.02); Immature Granulocytes % (auto) 0.1 %; Lymphocytes # (auto) 0.95 K/uL (1.2-3.4); Mean Corpuscular Hemoglobin 31.3 pg (25-34); Mean Corpuscular Hgb Conc 35.4 g/dL (32-36); Mean Corpuscular Volume 88.5 fL (80-100); Mean Platelet Volume 11.4 fL (7.4-10.4); Monocytes # (auto) 0.39 K/uL (0.11-0.59); Monocytes % (auto) 5.7 %; Neutrophils # (auto) 5.44 K/uL (1.4-6.5); Neutrophils % (auto) 80.2 %; Platelet Count 200 K/uL (130-400); RDW Coefficient of Variation 13.1 % (11.5-14.5); RDW Standard Deviation 42.6 fL (36.4-46.3); Red Blood Count 5.04 M/uL (4.7-6.1); White Blood Count 6.79 K/uL (4.8-10.8)
[2021-04-30] MEDS: ALBUT/IPRATROP 3MG/0.5MG NEB 3 ML VIAL NEB SCH ×4 (06:53→20:12)
[2021-04-30 07:10] LABS: BUN Creatinine Ratio 31.2 (10-20); Calcium 9.1 mg/dl (8.5-10.1); Creatinine Clr Calc Pharmacy 51.8 ml/min; Est GFR (African American) 40.7 ml/min; Est GFR (Non-African American) 35.1 ml/min; Potassium 3.7 mmol/L (3.5-5.1)
[2021-04-30] MEDS: ASPIRIN 81 MG ECTAB PO SCH (08:42)
[2021-04-30] MEDS: ASCORBIC ACID 500 MG TAB PO SCH (08:43)
[2021-04-30] MEDS: OMEGA-3 (PURIFIED FISH OIL) 1 GM CAP PO SCH (08:43)
[2021-04-30] MEDS: FINASTERIDE 5 MG TAB PO SCH (08:43)
[2021-04-30] MEDS: TAMSULOSIN HCL 0.4 MG CAP PO SCH (08:43)
[2021-04-30] MEDS: dexAMETHasone 6 MG in SYRINGE 0 ML IV SCH (08:45)
[2021-04-30] MEDS: FENOFIBRATE NANOCRYSTALLIZED 48 MG TABLET PO SCH (08:46)
[2021-04-30] MEDS ORDERED: INSULIN GLARGINE SOLOSTAR 100 UNITS/ML 3 ML PEN SC SCH ×2 (09:00)
--- NOTE | 2021-04-30 09:19 | Pharmacy Report ---
Pharmacy Glycemic Short Note 2 - Date of Service April 30, 2021 - Glycemic Short BSG Results (Last 24 hours): 04/29/21 04/29/21 04/29/21 09:46 11:38 13:43 Glucose POC Glucose 257 H 261 H 299 H 04/29/21 04/29/21 04/29/21 16:13 16:58 20:19 Glucose POC Glucose 275 H 270 H 363 H* 04/29/21 04/30/21 04/30/21 23:34 03:52 05:43 Glucose 200 H POC Glucose 291 H 270 H 04/30/21 07:44 Glucose POC Glucose 160 H OUTPATIENT ANTIDIABETIC REGIMEN: * Trulicity SQ on Fridays * Amaryl 4mg PO QAM * Pioglitzaone 30mg PO QAM * A1c = 10.3% on 04/29/21 ASSESSMENT: 04/30 * Pt has received 130 units of insulin over the past 24hrs * 30 units of basal with Lantus * 40 units of NPH for steroid induced hyperglycemia * 60 units of bolus with NovoLog * BSGs still elevated with current orders. Insulin not likely at steady state yet so will continue with conservative increases. * Heparin drip stopped yesterday (mixed in dextrose) so this should relieve some hyperglycemia * Will increase TDD from 130 units to 160 units/day and titrate based on BSG trends * Tight glycemic control warranted 04/29 * 65yo T2DM male admitted for COVID PNA. * Pt with poor outpatient control per A1c * Pt with SEVERE hyperglycemia secondary to poor baseline control, infection, stress, and especially steroids with dexamethasone * Pt initiated on IV insulin infusion + given NPH for dex. * Discussed case with hospitalist and RN. OK to transition off of IV insulin infusion. * Based on stable insulin rate of ~ 4.4 units/hr expecting patient to require ~ 120 units/day of insulin. Will give this as basal with Lantus, NPH for steroid induced hyperglycemia, and Novolog for meals/correctional PLAN FOR INPATIENT GLYCEMIC CONTROL: * Hold outpatient diabetes medications * Basal insulin * Increase Lantus to 40 units SQ daily in AM * No change: NPH 40 units SQ daily with dexamethasone * Bolus insulin: tighten CF/CR * NovoLog per scale ACHS or Q6hrs while NPO * Goal Range: Low 110 mg/dL - High 140 mg/dL * Correction Factor: 10 mg/dL/unit * Nutritional / Prandial insulin per carb ratio of 1 unit per 3 grams CHO consumed PLAN FOR DISCHARGE: * TBD, but patient will likely require insulin at dc based on A1c > 10%
[2021-04-30] MEDS: INSULIN HUMAN NPH SC SCH (10:03)
[2021-04-30] MEDS: DOXYCYCLINE HYCLATE 100 MG CAP PO SCH ×2 (10:04→20:07)
[2021-04-30] MEDS: FLUTICASONE/VILANTEROL 100/25MCG 14 PUFFS/INHALER INH SCH (10:04)
--- NOTE | 2021-04-30 17:11 | Hospitalist Progress Note ---
Date of Service April 30, 2021 Assessment & Plan (1) Acute respiratory failure: (2) Pneumonia due to 2019 novel coronavirus: Plan: Tested positive for SARS COV2 -19 04/26/21. Sx have been ongoing and worsening for ~ 3 weeks. aggressive pulmonary toilet with duonebs, ISP, Flutter valve, self proning Does not meet criteria for remdesivir given duration of sx Has been receiving IV dexamethsone CRP improving, so doesn't qualify for baricitinib Continue supplemental oxygen-escalating needs throughout the day, hi flow now (3) Sepsis: Plan: Secondary to COVID-19 virus infection Prescribed doxycycline in outpt setting, Pt meets Sepsis criteria 2/2 to tachycardia and fever in setting of known covid- 19 infection. Blood and urine cultures ordered and negative to date (4) Elevated troponin: Plan: Likely demand ischemia in setting of acute illness No ST t wave changes, or chest pain (5) Acute renal failure superimposed on stage 3b chronic kidney disease: Plan: Acute on chronic CKD 3 baseline cr 1.7-1.8, now back to baseline. follows GMG nephro avoid nephrotoxic agents, hold lisinopril and torsemide (6) T2DM (type 2 diabetes mellitus): Plan: last a1c 8.3 01/2021, obtain a1c in a.m. consult glycemic pharmacist in setting of hyperglycemia and dexamethasone use at goal (7) Sleep apnea: Plan: CPAP qHS (8) Chronic obstructive pulmonary disease: Plan: chornic, stable, cont Symbicort. (9) DVT prophylaxis: Plan: Heparin Full code Disposition-continue PCU monitoring with escalating oxygen needs Naila Barrios DO [facility] Hospitalist Admission and Anticipated Discharge Date Admission Date: April 28, 2021 Subjective 65-year-old man presented with pneumonia secondary to SARS-CoV-2 virus He has escalated in his oxygen needs today He reports shortness of breath and is clearly dyspneic with conversation Nursing has him on his home CPAP with oxygen running through and he reports feeling well on this Reports persistent productive cough Denies any chest pain, fevers, chills, abdominal pain Tolerating p.o. Review of Systems Review of Systems: All systems reviewed negative except as indicated above. Physical Exam Physical Exam: CONSTITUTIONAL: WNWD, vitals as above, generally ill- appearing, some dyspnea with conversation, CPAP mask in place, sitting on bedside. EYES: normal conjunctivae, no scleral icterus ENT: external ear and nose normal, CPAP mask in place. NECK: trachea midline RESPIRATORY: clear to auscultation bilaterally, no crackles, rales or wheezes, dyspnea with conversation and min exertion. CARDIOVASCULAR: regular rate and rhythm, S1 and 2 heard without murmurs, gallops or rubs, no JVD, no peripheral edema CHEST: inspection of chest was normal GASTROINTESTINAL: soft, protuberant, nontender, ND, no guarding MUSCULOSKELETAL: strength 5/5 throughout, head is normocephalic and atraumatic SKIN: warm and dry NEUROLOGIC: CN 2-12 grossly intact, no sensory deficit, normal cognition, normal speech, no tremor PSYCHIATRIC: alert cooperative and oriented to person, place and time. Results & Data Results & Data ([facility]) Vital Signs (Past 12 Hours) Vital Signs Temp Pulse Pulse Resp BP Pulse Ox Pulse Ox 04/30/21 16:04 96 H 04/30/21 15:49 88 04/30/21 14:53 36.8 C 96 H 26 H 125/61 94 04/30/21 14:44 87 18 94 04/30/21 12:10 36.9 C 96 H 26 H 148/71 H 93 04/30/21 11:40 94 H 92 04/30/21 11:17 66 22 92 04/30/21 08:55 98 H 04/30/21 08:54 88 L 04/30/21 08:00 89 04/30/21 07:47 37.1 C 98 H 24 137/80 04/30/21 06:53 71 26 H 95 Laboratory Results Short CBC 04/30/21 Range/Units 05:43 WBC 6.79 (4.8-10.8) K/uL Hgb 15.8 (14.0-18.0) g/dL Hct 44.6 (42-52) % Plt Count 200 (130-400) K/uL BMP 04/30/21 05:43 Sodium 134 L Potassium 3.7 D Chloride 104 Carbon Dioxide 20 L BUN 62 H Creatinine 1.97 H D Glucose 200 H Calcium 9.1 Medications Administered Current Inpatient Medications Acetaminophen (Acetaminophen 325 Mg Tab) 650 mg PO Q4H PRN PRN Reason: Pain or Fever Stop: 05/28/21 14:53 Last Admin: 04/29/21 20:18 Dose: 650 mg Documented by: Al Hydrox/Mg Hydrox/Simethicone (Aluminum/Magnesium Susp 30 Ml Udc) 15 ml PO Q4H PRN PRN Reason: Dyspepsia Stop: 05/28/21 14:53 Albuterol (Albut/Ipratrop 3mg/0.5mg Neb 3 Ml Vial) 3 ml NEB QIDR [facility] Stop: 05/28/21 14:59 Last Admin: 04/30/21 14:43 Dose: 3 ml Documented by: Albuterol (Albuterol Hfa 8 Gm Inhaler) 2 puffs INH Q4 PRN PRN Reason: sob,cough or wheeze Stop: 05/28/21 14:53 Last Admin: 04/29/21 05:19 Dose: 2 puffs Documented by: Amlodipine Besylate (Amlodipine Besylate 5 Mg Tab) 5 mg PO HS [facility] Stop: 05/28/21 20:59 Last Admin: 04/29/21 20:20 Dose: 5 mg Documented by: Ascorbic Acid (Ascorbic Acid 500 Mg Tab) 1,000 mg PO DAILY [facility] Stop: 05/29/21 08:59 Last Admin: 04/30/21 08:43 Dose: 1,000 mg Documented by: Aspirin (Aspirin 81 Mg Ectab) 81 mg PO QAM [facility] Stop: 05/29/21 08:59 Last Admin: 04/30/21 08:42 Dose: 81 mg Documented by: Atorvastatin Calcium (Atorvastatin 40 Mg Tab) 40 mg PO HS [facility] Stop: 05/28/21 20:59 Last Admin: 04/29/21 20:19 Dose: 40 mg Documented by: Dextrose (Dextrose 50% 50 Ml Syringe) 25 - 50 ml IV UD PRN; Protocol PRN Reason: Hypoglycemia Protocol Stop: 05/28/21 11:44 Dextrose (Dextrose 50% 50 Ml Syringe) 25 - 50 ml IV UD PRN; Protocol PRN Reason: Hypoglycemia Protocol Stop: 05/28/21 14:53 Doxycycline Hyclate (Doxycycline Hyclate 100 Mg Cap) 100 mg PO BID [facility] Stop: 05/05/21 20:59 Last Admin: 04/30/21 10:04 Dose: 100 mg Documented by: Fenofibrate (Fenofibrate Nanocrystallized 48 Mg Tablet) 48 mg PO DAILY [facility] Stop: 05/29/21 08:59 Last Admin: 04/30/21 08:46 Dose: 48 mg Documented by: Finasteride (Finasteride 5 Mg Tab) 5 mg PO QAM [facility] Stop: 05/29/21 08:59 Last Admin: 04/30/21 08:43 Dose: 5 mg Documented by: Fish Oil ([place]-3 (Purified Fish Oil) 1 Gm Cap) 1 gm PO QAM [facility] Stop: 05/29/21 08:59 Last Admin: 04/30/21 08:43 Dose: 1 gm Documented by: Fluticasone/Vilanterol (Fluticasone/Vilanterol 100/25mcg 14 Puffs/Inhaler) 1 puffs INH DAILY [facility] Stop: 05/29/21 08:59 Last Admin: 04/30/21 10:04 Dose: 1 puffs Documented by: Glucagon (Glucagon For Inj 1 Mg Vial) 1 mg IM UD PRN; Protocol PRN Reason: Hypoglycemia Protocol Stop: 05/28/21 11:44 Glucagon (Glucagon For Inj 1 Mg Vial) 1 mg SQ UD PRN; Protocol PRN Reason: Hypoglycemia Protocol Stop: 05/28/21 14:53 Glucose (Glucose 40% Gel 15 Gm Tube) 15 - 30 gm PO UD PRN; Protocol PRN Reason: Hypoglycemia Protocol Stop: 05/28/21 11:44 Glucose (Glucose 10 Tabs/Tube) 4 - 8 tabs PO UD PRN; Protocol PRN Reason: Hypoglycemia Protocol Stop: 05/28/21 11:44 Glucose (Glucose 10 Tabs/Tube) 4 - 8 tabs PO UD PRN; Protocol PRN Reason: Hypoglycemia Protocol Stop: 05/28/21 14:53 Glucose (Glucose 40% Gel 15 Gm Tube) 15 - 30 gm PO UD PRN; Protocol PRN Reason: Hypoglycemia Protocol Stop: 05/28/21 14:53 Heparin Sodium (Porcine) (Heparin Sod 5,000 Unit/0.5 Ml Vial) 7,500 units SQ Q8 [facility] Stop: 05/29/21 21:59 Last Admin: 04/30/21 12:24 Dose: 7,500 units Documented by: Dexamethasone 6 mg/ Syringe 1.5 mls @ 1 mls/min IV DAILY [facility] Stop: 05/08/21 09:02 Last Admin: 04/30/21 08:45 Dose: 1 mls/min Documented by: Insulin Aspart (Insulin Aspart Per Unit) 0 units SC ACHS [facility] Stop: 05/28/21 11:29 Last Admin: 04/30/21 12:54 Dose: 25 units Documented by: Insulin Glargine (Insulin Glargine Solostar 100 Units/Ml 3 Ml Pen) 40 units SC DAILY [facility] Stop: 05/30/21 08:59 Last Admin: 04/30/21 10:03 Dose: 40 units Documented by: Insulin Human NPH (Insulin Human Nph) 40 units SC DAILY [facility] Stop: 05/30/21 08:59 Last Admin: 04/30/21 10:03 Dose: 40 units Documented by: Levothyroxine Sodium (Levothyroxine Sodium 50 Mcg Tablet) 50 mcg PO DAILYBB [facility] Stop: 05/29/21 06:29 Last Admin: 04/30/21 05:28 Dose: 50 mcg Documented by: Magnesium Hydroxide (Magnesium Hydroxide Susp 30 Ml Udc) 30 ml PO Q12H PRN PRN Reason: Constipation Stop: 05/28/21 14:53 Miscellaneous (Carbohydrates For Hypoglycemia ) 15 - 30 gm PO PRN PRN PRN Reason: Hypoglycemia Treatment Stop: 05/28/21 11:44 Miscellaneous (Carbohydrates For Hypoglycemia ) 15 - 30 gm PO UD PRN PRN Reason: Hypoglycemia Protocol Stop: 05/28/21 14:53 Miscellaneous Information (Pharmacy Glycemic Mgmt Consult) 1 ea N/A UD PRN PRN Reason: Consult Stop: 05/29/21 12:21 Ondansetron HCl (Ondansetron Inj 2 Mg/Ml 2 Ml Vial) 4 mg IV Q6H PRN PRN Reason: Nausea Stop: 05/28/21 14:53 Polyethylene Glycol (Polyethylene (Miralax) 17 Gm Pack) 17 gm PO DAILY PRN PRN Reason: Constipation Stop: 05/28/21 14:53 Sodium Chloride (Sodium Chloride 0.65% Na Soln 45 Ml ([place])) 2 sprays JUSTA UD PRN PRN Reason: Congestion Stop: 05/28/21 14:53 Tamsulosin HCl (Tamsulosin Hcl 0.4 Mg Cap) 0.4 mg PO QAM [facility] Stop: 05/29/21 08:59 Last Admin: 04/30/21 08:43 Dose: 0.4 mg Documented by: Tramadol HCl (Tramadol Hcl 50 Mg Tablet) 50 mg PO Q8 PRN PRN Reason: Pain Stop: 05/28/21 14:53
[2021-04-30] MEDS ORDERED: PHARMACY GLYCEMIC MGMT CONSULT PRN (18:02)
--- NOTE | 2021-04-30 19:53 | Electrocardiogram Report ---
Test Reason : Blood Pressure : / mmHG Vent. Rate : 111 BPM Atrial Rate : 111 BPM P-R Int : 152 ms QRS Dur : 112 ms QT Int : 342 ms P-R-T Axes : 057 050 055 degrees QTc Int : 465 ms Sinus tachycardia Otherwise normal ECG When compared with ECG of 18-FEB-2021 22:00, T wave inversion no longer evident in Inferior leads Confirmed by Hipolito Culp ([id number] on 04/30/2021 7:52:49 PM Referred By: Confirmed By:Hipolito Culp
[2021-04-30] MEDS: ATORVASTATIN 40 MG TAB PO SCH (20:08)
[2021-04-30] MEDS: amLODIPine BESYLATE 5 MG TAB PO SCH (20:09)
[2021-04-30] MEDS: ACETAMINOPHEN 325 MG TAB PO PRN (20:36)
[2021-05-01] MEDS: HEPARIN SOD 5,000 UNIT/0.5 ML VIAL SQ SCH ×3 (06:19→21:25)
[2021-05-01] MEDS: LEVOTHYROXINE SODIUM 50 MCG TABLET PO SCH (06:20)
[2021-05-01] MEDS: DOXYCYCLINE HYCLATE 100 MG CAP PO SCH (07:23)
[2021-05-01] MEDS: ASCORBIC ACID 500 MG TAB PO SCH (07:23)
[2021-05-01] MEDS: FINASTERIDE 5 MG TAB PO SCH (07:23)
[2021-05-01] MEDS: OMEGA-3 (PURIFIED FISH OIL) 1 GM CAP PO SCH (07:24)
[2021-05-01] MEDS: FENOFIBRATE NANOCRYSTALLIZED 48 MG TABLET PO SCH (07:24)
[2021-05-01] MEDS: TAMSULOSIN HCL 0.4 MG CAP PO SCH (07:24)
[2021-05-01] MEDS: ASPIRIN 81 MG ECTAB PO SCH (07:25)
[2021-05-01] MEDS: FLUTICASONE/VILANTEROL 100/25MCG 14 PUFFS/INHALER INH SCH (07:25)
[2021-05-01] MEDS: ALBUT/IPRATROP 3MG/0.5MG NEB 3 ML VIAL NEB SCH ×4 (07:32→19:51)
[2021-05-01] MEDS: dexAMETHasone 6 MG in SYRINGE 0 ML IV SCH (08:37)
[2021-05-01] MEDS ORDERED: INSULIN GLARGINE SOLOSTAR 100 UNITS/ML 3 ML PEN SC SCH (09:00)
[2021-05-01] MEDS: INSULIN ASPART PER UNIT SC SCH ×4 (09:06→21:37)
[2021-05-01] MEDS: INSULIN HUMAN NPH SC SCH (09:07)
--- NOTE | 2021-05-01 13:19 | Pharmacy Report ---
Pharmacy Glycemic Short Note 2 - Date of Service May 01, 2021 - Glycemic Short BSG Results (Last 24 hours): 04/30/21 04/30/21 04/30/21 17:04 17:06 20:13 POC Glucose 301 H* 307 H* 343 H* 05/01/21 05/01/21 07:49 12:13 POC Glucose 225 H 220 H OUTPATIENT ANTIDIABETIC REGIMEN: * Trulicity SQ on Fridays * Amaryl 4mg PO QAM * Pioglitzaone 30mg PO QAM * A1c = 10.3% on 04/29/21 ASSESSMENT: 05/01 * Pt has received 198 units of insulin over the past 24hrs * 40 units of basal with Lantus * 40 units of NPH for steroid induced hyperglycemia * 118 units of bolus with NovoLog * BSGs still elevated with current orders. Insulin not likely at steady state yet so will continue with conservative increases. * Increase one basal insulin at a time. Since fasting is elevated, increase lantus by 20% to 50 units daily. * Since BSGs trend upwards throughout the day, tighten Novolog. * Tight glycemic control warranted 04/30 * Pt has received 130 units of insulin over the past 24hrs * 30 units of basal with Lantus * 40 units of NPH for steroid induced hyperglycemia * 60 units of bolus with NovoLog * BSGs still elevated with current orders. Insulin not likely at steady state yet so will continue with conservative increases. * Heparin drip stopped yesterday (mixed in dextrose) so this should relieve some hyperglycemia * Will increase TDD from 130 units to 160 units/day and titrate based on BSG trends * Tight glycemic control warranted 04/29 * 65yo T2DM male admitted for COVID PNA. * Pt with poor outpatient control per A1c * Pt with SEVERE hyperglycemia secondary to poor baseline control, infection, stress, and especially steroids with dexamethasone * Pt initiated on IV insulin infusion + given NPH for dex. * Discussed case with hospitalist and RN. OK to transition off of IV insulin infusion. * Based on stable insulin rate of ~ 4.4 units/hr expecting patient to require ~ 120 units/day of insulin. Will give this as basal with Lantus, NPH for steroid induced hyperglycemia, and Novolog for meals/correctional PLAN FOR INPATIENT GLYCEMIC CONTROL: * Hold outpatient diabetes medications * Basal insulin * Increase Lantus to 50 units SQ daily in AM * No change: NPH 40 units SQ daily with dexamethasone * Bolus insulin: tighten CF/CR * NovoLog per scale ACHS or Q6hrs while NPO * Goal Range: Low 110 mg/dL - High 140 mg/dL * Correction Factor: 7 mg/dL/unit * Nutritional / Prandial insulin per carb ratio of 1 unit per 2 grams CHO consumed PLAN FOR DISCHARGE: * TBD, but patient will likely require insulin at dc based on A1c > 10%
[2021-05-01] MEDS: ATORVASTATIN 40 MG TAB PO SCH (21:25)
[2021-05-01] MEDS: amLODIPine BESYLATE 5 MG TAB PO SCH (21:25)
--- NOTE | 2021-05-01 22:59 | Hospitalist Progress Note ---
Date of Service May 01, 2021 Assessment & Plan (1) Acute respiratory failure: (2) Pneumonia due to 2019 novel coronavirus: Plan: Tested positive for SARS COV2 -19 04/26/21. Sx have been ongoing and worsening for ~ 3 weeks. aggressive pulmonary toilet with duonebs, ISP, Flutter valve, self proning Does not meet criteria for remdesivir given duration of sx Has been receiving IV dexamethsone CRP improving, so doesn't qualify for baricitinib Continue supplemental oxygen-CPAP as tolerated PER MY CONVERSATION WITH HIM ON 04/30, HE IS A FULL CODE AND OK WITH TRACH IF IT EVER CAME TO THAT. (3) Sepsis: Plan: Secondary to COVID-19 virus infection Pt meets Sepsis criteria 2/2 to tachycardia and fever in setting of known covid- 19 infection. Blood and urine cultures ordered and negative to date (4) Elevated troponin: Plan: Likely demand ischemia in setting of acute illness No ST t wave changes, or chest pain (5) Acute renal failure superimposed on stage 3b chronic kidney disease: Plan: Acute on chronic CKD 3 baseline cr 1.7-1.8, now back to baseline. follows GMG nephro avoid nephrotoxic agents, hold lisinopril and torsemide (6) T2DM (type 2 diabetes mellitus): Plan: last a1c 8.3 01/2021, obtain a1c in a.m. consult glycemic pharmacist in setting of hyperglycemia and dexamethasone use at goal (7) Sleep apnea: Plan: CPAP qHS (8) Chronic obstructive pulmonary disease: Plan: chornic, stable, cont Symbicort. (9) DVT prophylaxis: Plan: Heparin Full code Disposition-continue PCU monitoring with escalating oxygen needs DO Massiel Ibarra Hospitalist Admission and Anticipated Discharge Date Admission Date: April 28, 2021 Subjective 65-year-old man presented with pneumonia secondary to SARS-CoV-2 virus Denies SOB On BIPAP at this time denies any chest pain Denies any chest pain, fevers, chills, abdominal pain Tolerating p.o. Review of Systems Review of Systems: All systems reviewed negative except as indicated above. Physical Exam Physical Exam: CONSTITUTIONAL: WNWD, vitals as above, CPAP mask in place, lying on his side. EYES: normal conjunctivae, no scleral icterus ENT: external ear and nose normal, CPAP mask in place. NECK: trachea midline RESPIRATORY: clear to auscultation bilaterally, no crackles, rales or wheezes CARDIOVASCULAR: regular rate and rhythm, S1 and 2 heard without murmurs, gallops or rubs, no JVD, no peripheral edema CHEST: inspection of chest was normal GASTROINTESTINAL: soft, protuberant, nontender, ND, no guarding MUSCULOSKELETAL: strength 5/5 throughout, head is normocephalic and atraumatic SKIN: warm and dry NEUROLOGIC: CN 2-12 grossly intact, no sensory deficit, normal cognition, normal speech, no tremor PSYCHIATRIC: alert cooperative and oriented to person, place and time. Results & Data Results & Data ([facility]) Vital Signs (Past 12 Hours) Vital Signs Temp Pulse Pulse Resp BP BP Pulse Ox 05/01/21 19:52 85 19 92 05/01/21 19:37 36.9 C 99 H 26 H 144/79 H 90 05/01/21 18:01 05/01/21 16:17 37.0 C 98 H 19 135/71 92 05/01/21 15:28 97 H 05/01/21 15:09 88 26 H 90 05/01/21 12:32 89 05/01/21 12:11 36.8 C 102 H 22 124/69 92 05/01/21 11:00 Pulse Ox 05/01/21 19:52 05/01/21 19:37 05/01/21 18:01 92 05/01/21 16:17 05/01/21 15:28 05/01/21 15:09 05/01/21 12:32 05/01/21 12:11 05/01/21 11:00 90 Medications Administered Current Inpatient Medications Acetaminophen (Acetaminophen 325 Mg Tab) 650 mg PO Q4H PRN PRN Reason: Pain or Fever Stop: 05/28/21 14:53 Last Admin: 04/30/21 20:36 Dose: 650 mg Documented by: Al Hydrox/Mg Hydrox/Simethicone (Aluminum/Magnesium Susp 30 Ml Udc) 15 ml PO Q4H PRN PRN Reason: Dyspepsia Stop: 05/28/21 14:53 Albuterol (Albut/Ipratrop 3mg/0.5mg Neb 3 Ml Vial) 3 ml NEB QIDR [facility]UAN Stop: 05/28/21 14:59 Last Admin: 05/01/21 19:51 Dose: 3 ml Documented by: Albuterol (Albuterol Hfa 8 Gm Inhaler) 2 puffs INH Q4 PRN PRN Reason: sob,cough or wheeze Stop: 05/28/21 14:53 Last Admin: 04/29/21 05:19 Dose: 2 puffs Documented by: Amlodipine Besylate (Amlodipine Besylate 5 Mg Tab) 5 mg PO HS [facility] Stop: 05/28/21 20:59 Last Admin: 05/01/21 21:25 Dose: 5 mg Documented by: Ascorbic Acid (Ascorbic Acid 500 Mg Tab) 1,000 mg PO DAILY [facility] Stop: 05/29/21 08:59 Last Admin: 05/01/21 07:23 Dose: 1,000 mg Documented by: Aspirin (Aspirin 81 Mg Ectab) 81 mg PO QAM [facility] Stop: 05/29/21 08:59 Last Admin: 05/01/21 07:25 Dose: 81 mg Documented by: Atorvastatin Calcium (Atorvastatin 40 Mg Tab) 40 mg PO [facility] Stop: 05/28/21 20:59 Last Admin: 05/01/21 21:25 Dose: 40 mg Documented by: Dextrose (Dextrose 50% 50 Ml Syringe) 25 - 50 ml IV UD PRN; Protocol PRN Reason: Hypoglycemia Protocol Stop: 05/28/21 14:53 Fenofibrate (Fenofibrate Nanocrystallized 48 Mg Tablet) 48 mg PO DAILY [facility] Stop: 05/29/21 08:59 Last Admin: 05/01/21 07:24 Dose: 48 mg Documented by: Finasteride (Finasteride 5 Mg Tab) 5 mg PO QAM [facility] Stop: 05/29/21 08:59 Last Admin: 05/01/21 07:23 Dose: 5 mg Documented by: Fish Oil ([place]-3 (Purified Fish Oil) 1 Gm Cap) 1 gm PO QAM [facility] Stop: 05/29/21 08:59 Last Admin: 05/01/21 07:24 Dose: 1 gm Documented by: Fluticasone/Vilanterol (Fluticasone/Vilanterol 100/25mcg 14 Puffs/Inhaler) 1 puffs INH DAILY [facility] Stop: 05/29/21 08:59 Last Admin: 05/01/21 07:25 Dose: 1 puffs Documented by: Glucagon (Glucagon For Inj 1 Mg Vial) 1 mg SQ UD PRN; Protocol PRN Reason: Hypoglycemia Protocol Stop: 05/28/21 14:53 Glucose (Glucose 10 Tabs/Tube) 4 - 8 tabs PO UD PRN; Protocol PRN Reason: Hypoglycemia Protocol Stop: 05/28/21 14:53 Glucose (Glucose 40% Gel 15 Gm Tube) 15 - 30 gm PO UD PRN; Protocol PRN Reason: Hypoglycemia Protocol Stop: 05/28/21 14:53 Heparin Sodium (Porcine) (Heparin Sod 5,000 Unit/0.5 Ml Vial) 7,500 units SQ Q8 [facility] Stop: 05/29/21 21:59 Last Admin: 05/01/21 21:25 Dose: 7,500 units Documented by: Dexamethasone 6 mg/ Syringe 1.5 mls @ 1 mls/min IV DAILY [facility] Stop: 05/08/21 09:02 Last Admin: 05/01/21 08:37 Dose: 1 mls/min Documented by: Insulin Aspart (Insulin Aspart Per Unit) 0 units SC ACHS [facility] Stop: 05/28/21 11:29 Last Admin: 05/01/21 21:37 Dose: 10 units Documented by: Insulin Glargine (Insulin Glargine Solostar 100 Units/Ml 3 Ml Pen) 50 units SC DAILY [facility] Stop: 05/31/21 08:59 Last Admin: 05/01/21 09:06 Dose: 50 units Documented by: Insulin Human NPH (Insulin Human Nph) 40 units SC DAILY [facility] Stop: 05/30/21 08:59 Last Admin: 05/01/21 09:07 Dose: 40 units Documented by: Levothyroxine Sodium (Levothyroxine Sodium 50 Mcg Tablet) 50 mcg PO DAILYBB [facility] Stop: 05/29/21 06:29 Last Admin: 05/01/21 06:20 Dose: 50 mcg Documented by: Magnesium Hydroxide (Magnesium Hydroxide Susp 30 Ml Udc) 30 ml PO Q12H PRN PRN Reason: Constipation Stop: 05/28/21 14:53 Miscellaneous (Carbohydrates For Hypoglycemia ) 15 - 30 gm PO UD PRN PRN Reason: Hypoglycemia Protocol Stop: 05/28/21 14:53 Miscellaneous Information (Pharmacy Glycemic Mgmt Consult) 1 ea N/A UD PRN PRN Reason: Consult Stop: 05/29/21 12:21 Ondansetron HCl (Ondansetron Inj 2 Mg/Ml 2 Ml Vial) 4 mg IV Q6H PRN PRN Reason: Nausea Stop: 05/28/21 14:53 Polyethylene Glycol (Polyethylene (Miralax) 17 Gm Pack) 17 gm PO DAILY PRN PRN Reason: Constipation Stop: 05/28/21 14:53 Sodium Chloride (Sodium Chloride 0.65% Na Soln 45 Ml ([place])) 2 sprays JUSTA UD PRN PRN Reason: Congestion Stop: 05/28/21 14:53 Tamsulosin HCl (Tamsulosin Hcl 0.4 Mg Cap) [facility] Stop: 05/29/21 08:59 Last Admin: 05/01/21 07:24 Dose: 0.4 mg Documented by: Tramadol HCl (Tramadol Hcl 50 Mg Tablet) 50 mg PO Q8 PRN PRN Reason: Pain Stop: 05/28/21 14:53
[2021-05-02] MEDS: ALBUT/IPRATROP 3MG/0.5MG NEB 3 ML VIAL NEB SCH ×2 (01:35→10:24)
[2021-05-02] MEDS: HEPARIN SOD 5,000 UNIT/0.5 ML VIAL SQ SCH ×3 (07:11→20:27)
[2021-05-02] MEDS: LEVOTHYROXINE SODIUM 50 MCG TABLET PO SCH (07:12)
[2021-05-02] MEDS ORDERED: ALBUT/IPRATROP 3MG/0.5MG NEB 3 ML VIAL NEB PRN (07:45)
[2021-05-02 07:54] LABS: Hemoglobin 14.9 g/dL (14.0-18.0); Mean Corpuscular Hemoglobin 31.3 pg (25-34); Mean Corpuscular Hgb Conc 34.7 g/dL (32-36); Mean Corpuscular Volume 90.3 fL (80-100); Mean Platelet Volume 10.6 fL (7.4-10.4); Platelet Count 276 K/uL (130-400); RDW Coefficient of Variation 13.3 % (11.5-14.5); RDW Standard Deviation 44.2 fL (36.4-46.3); Red Blood Count 4.76 M/uL (4.7-6.1)
[2021-05-02] MEDS: ASPIRIN 81 MG ECTAB PO SCH (08:23)
[2021-05-02 08:24] LABS: BUN Creatinine Ratio 30.7 (10-20); C Reactive Protein 10.8 mg/dl (0-0.29); Calcium 9.5 mg/dl (8.5-10.1); Est GFR (African American) 48.7 ml/min; Potassium 4.1 mmol/L (3.5-5.1)
[2021-05-02] MEDS: FINASTERIDE 5 MG TAB PO SCH (08:24)
[2021-05-02] MEDS: ASCORBIC ACID 500 MG TAB PO SCH (08:24)
[2021-05-02] MEDS: FLUTICASONE/VILANTEROL 100/25MCG 14 PUFFS/INHALER INH SCH (08:24)
[2021-05-02] MEDS: TAMSULOSIN HCL 0.4 MG CAP PO SCH (08:24)
[2021-05-02] MEDS: OMEGA-3 (PURIFIED FISH OIL) 1 GM CAP PO SCH (08:24)
[2021-05-02] MEDS: FENOFIBRATE NANOCRYSTALLIZED 48 MG TABLET PO SCH (08:24)
[2021-05-02] MEDS: dexAMETHasone 6 MG in SYRINGE 0 ML IV SCH (08:32)
[2021-05-02] MEDS ORDERED: INSULIN GLARGINE SOLOSTAR 100 UNITS/ML 3 ML PEN SC SCH (09:00)
[2021-05-02] MEDS: INSULIN ASPART PER UNIT SC SCH ×4 (09:58→20:28)
[2021-05-02] MEDS: INSULIN HUMAN NPH SC SCH (09:59)
--- NOTE | 2021-05-02 10:29 | Pharmacy Report ---
Pharmacy Glycemic Short Note 2 - Date of Service May 02, 2021 - Glycemic Short BSG Results (Last 24 hours): 05/01/21 05/01/21 05/01/21 12:13 16:52 20:55 Glucose POC Glucose 220 H 136 H 206 H 05/02/21 05/02/21 07:19 07:35 Glucose 205 H POC Glucose 204 H OUTPATIENT ANTIDIABETIC REGIMEN: * Trulicity SQ on Fridays * Amaryl 4mg PO QAM * Pioglitzaone 30mg PO QAM * A1c = 10.3% on 04/29/21 ASSESSMENT: 05/02 * Pt has received 209 units of insulin over the past 24hrs * 50 units of basal with Lantus * 40 units of NPH for steroid induced hyperglycemia * 119 units of bolus with NovoLog * BSGs still elevated with current orders. * Increase one basal insulin at a time. Since fasting is elevated, increase lantus by 20% to 60 units daily. * Since BSGs trend upwards throughout the day, tighten Novolog ever slightly since small changes will produce good effects. * Tight glycemic control warranted 05/01 * Pt has received 198 units of insulin over the past 24hrs * 40 units of basal with Lantus * 40 units of NPH for steroid induced hyperglycemia * 118 units of bolus with NovoLog * BSGs still elevated with current orders. Insulin not likely at steady state yet so will continue with conservative increases. * Increase one basal insulin at a time. Since fasting is elevated, increase lantus by 20% to 50 units daily. * Since BSGs trend upwards throughout the day, tighten Novolog. * Tight glycemic control warranted 04/30 * Pt has received 130 units of insulin over the past 24hrs * 30 units of basal with Lantus * 40 units of NPH for steroid induced hyperglycemia * 60 units of bolus with NovoLog * BSGs still elevated with current orders. Insulin not likely at steady state yet so will continue with conservative increases. * Heparin drip stopped yesterday (mixed in dextrose) so this should relieve some hyperglycemia * Will increase TDD from 130 units to 160 units/day and titrate based on BSG trends * Tight glycemic control warranted 04/29 * 65yo T2DM male admitted for COVID PNA. * Pt with poor outpatient control per A1c * Pt with SEVERE hyperglycemia secondary to poor baseline control, infection, stress, and especially steroids with dexamethasone * Pt initiated on IV insulin infusion + given NPH for dex. * Discussed case with hospitalist and RN. OK to transition off of IV insulin infusion. * Based on stable insulin rate of ~ 4.4 units/hr expecting patient to require ~ 120 units/day of insulin. Will give this as basal with Lantus, NPH for steroid induced hyperglycemia, and Novolog for meals/correctional PLAN FOR INPATIENT GLYCEMIC CONTROL: * Hold outpatient diabetes medications * Basal insulin * Increase Lantus to 60 units SQ daily in AM * No change: NPH 40 units SQ daily with dexamethasone * Bolus insulin: tighten CF/CR * NovoLog per scale ACHS or Q6hrs while NPO * Goal Range: Low 110 mg/dL - High 140 mg/dL * Correction Factor: 7 mg/dL/unit * Nutritional / Prandial insulin per carb ratio of 1 unit per 1.8 grams CHO consumed PLAN FOR DISCHARGE: * TBD, but patient will likely require insulin at dc based on A1c > 10%
--- NOTE | 2021-05-02 12:23 | Hospitalist Progress Note ---
Date of Service May 02, 2021 Assessment & Plan (1) Acute respiratory failure: Plan: 2/2 covid pneumonia (2) Pneumonia due to 2019 novel coronavirus: Plan: Tested positive for SARS COV2 - 04/26/21. Sx have been ongoing and worsening for ~ 3 weeks. aggressive pulmonary toilet with duonebs, ISP, Flutter valve, self proning- declines to prone Does not meet criteria for remdesivir given duration of sx Has been receiving IV dexamethsone CRP improving, so doesn't qualify for baricitinib Continue supplemental oxygen-CPAP as tolerated Evaluated by ICU on 05/02 for possible intubation as patient states he is getting tired. No indication yet for intubation per ICU team. Pt moved to hard wired ICU capable room for closer monitoring. PER MY CONVERSATION WITH HIM ON 04/30, HE IS A FULL CODE AND OK WITH TRACH IF IT EVER CAME TO THAT. (3) Sepsis: Plan: Secondary to COVID-19 virus infection Pt meets Sepsis criteria 2/2 to tachycardia and fever in setting of known covid- 19 infection. Blood and urine cultures ordered and negative to date (4) Elevated troponin: Plan: Likely demand ischemia in setting of acute illness No ST t wave changes, or chest pain (5) Acute renal failure superimposed on stage 3b chronic kidney disease: Plan: Acute on chronic CKD 3 baseline cr 1.7-1.8, now back to baseline. follows GMG nephro avoid nephrotoxic agents, hold lisinopril and torsemide (6) T2DM (type 2 diabetes mellitus): Plan: last a1c 8.3 01/2021, obtain a1c in a.m. consult glycemic pharmacist in setting of hyperglycemia and dexamethasone use at goal (7) Sleep apnea: Plan: CPAP qHS (8) Chronic obstructive pulmonary disease: Plan: chornic, stable, cont Symbicort. (9) DVT prophylaxis: Plan: Heparin Full code Disposition-continue PCU monitoring with escalating oxygen needs Naila Barrios DO [facility] Hospitalist Admission and Anticipated Discharge Date Admission Date: April 28, 2021 Subjective 65-year-old man presented with pneumonia secondary to SARS-CoV-2 virus Worsening shortness of breath and patient was desaturating on high flow to 88 to 90% per nursing staff Requires BiPAP to keep oxygen saturations up Patient states he is tired and wearing out Review of Systems Review of Systems: All systems reviewed negative except as indicated above. Physical Exam Physical Exam: CONSTITUTIONAL: obese, vitals as above, CPAP mask in place, sitting up on side of bed, slightly distressed, appears worn out. EYES: normal conjunctivae, no scleral icterus ENT: external ear and nose normal, CPAP mask in place. NECK: trachea midline RESPIRATORY: clear to auscultation bilaterally, no crackles, rales or wheezes CARDIOVASCULAR: regular rate and rhythm, S1 and 2 heard without murmurs, gallops or rubs, no JVD, no peripheral edema CHEST: inspection of chest was normal GASTROINTESTINAL: soft, protuberant, nontender, ND, no guarding MUSCULOSKELETAL: strength 5/5 throughout, head is normocephalic and atraumatic SKIN: warm and dry NEUROLOGIC: CN 2-12 grossly intact, no sensory deficit, normal cognition, normal speech, no tremor PSYCHIATRIC: alert cooperative and oriented to person, place and time. Results & Data Results & Data ([facility]) Vital Signs (Past 12 Hours) Vital Signs Temp Pulse Pulse Resp BP Pulse Ox 05/02/21 11:43 36.9 C 103 H 24 130/79 94 05/02/21 11:14 107 H 24 93 05/02/21 08:00 101 H 05/02/21 07:48 107 H 18 94 05/02/21 07:37 37.7 C H 108 H 20 150/65 H 95 05/02/21 03:21 37.0 C 102 H 22 136/87 92 05/02/21 01:36 98 H 21 92 Laboratory Results Short CBC 05/02/21 Range/Units 07:19 WBC 8.00 (4.8-10.8) K/uL Hgb 14.9 (14.0-18.0) g/dL Hct 43.0 (42-52) % Plt Count 276 (130-400) K/uL BMP 05/02/21 07:19 Sodium 136 Potassium 4.1 Chloride 103 Carbon Dioxide 24 BUN 52 H Creatinine 1.70 H Glucose 205 H Calcium 9.5 Medications Administered Current Inpatient Medications Acetaminophen (Acetaminophen 325 Mg Tab) 650 mg PO Q4H PRN PRN Reason: Pain or Fever Stop: 05/28/21 14:53 Last Admin: 04/30/21 20:36 Dose: 650 mg Documented by: Al Hydrox/Mg Hydrox/Simethicone (Aluminum/Magnesium Susp 30 Ml Udc) 15 ml PO Q4H PRN PRN Reason: Dyspepsia Stop: 05/28/21 14:53 Albuterol (Albuterol Hfa 8 Gm Inhaler) 2 puffs INH Q4 PRN PRN Reason: sob,cough or wheeze Stop: 05/28/21 14:53 Last Admin: 04/29/21 05:19 Dose: 2 puffs Documented by: Albuterol (Albut/Ipratrop 3mg/0.5mg Neb 3 Ml Vial) 3 ml NEB QIDR PRN PRN Reason: SOB/wheezin Stop: 05/28/21 14:59 Last Admin: 05/02/21 07:50 Dose: 3 ml Documented by: Amlodipine Besylate (Amlodipine Besylate 5 Mg Tab) 5 mg PO [facility] Stop: 05/28/21 20:59 Last Admin: 05/01/21 21:25 Dose: 5 mg Documented by: Ascorbic Acid (Ascorbic Acid 500 Mg Tab) 1,000 mg PO DAILY [facility] Stop: 05/29/21 08:59 Last Admin: 05/02/21 08:24 Dose: 1,000 mg Documented by: Aspirin (Aspirin 81 Mg Ectab) [facility] Stop: 05/29/21 08:59 Last Admin: 05/02/21 08:23 Dose: 81 mg Documented by: Atorvastatin Calcium (Atorvastatin 40 Mg Tab) 40 mg PO HS [facility] Stop: 05/28/21 20:59 Last Admin: 05/01/21 21:25 Dose: 40 mg Documented by: Dextrose (Dextrose 50% 50 Ml Syringe) 25 - 50 ml IV UD PRN; Protocol PRN Reason: Hypoglycemia Protocol Stop: 05/28/21 14:53 Fenofibrate (Fenofibrate Nanocrystallized 48 Mg Tablet) 48 mg PO DAILY [facility] Stop: 05/29/21 08:59 Last Admin: 05/02/21 08:24 Dose: 48 mg Documented by: Finasteride (Finasteride 5 Mg Tab) 5 mg PO QAM [facility] Stop: 05/29/21 08:59 Last Admin: 05/02/21 08:24 Dose: 5 mg Documented by: Fish Oil ([place]-3 (Purified Fish Oil) 1 Gm Cap) 1 gm PO QAM [facility] Stop: 05/29/21 08:59 Last Admin: 05/02/21 08:24 Dose: 1 gm Documented by: Fluticasone/Vilanterol (Fluticasone/Vilanterol 100/25mcg 14 Puffs/Inhaler) 1 puffs INH DAILY [facility] Stop: 05/29/21 08:59 Last Admin: 05/02/21 08:24 Dose: 1 puffs Documented by: Glucagon (Glucagon For Inj 1 Mg Vial) 1 mg SQ UD PRN; Protocol PRN Reason: Hypoglycemia Protocol Stop: 05/28/21 14:53 Glucose (Glucose 10 Tabs/Tube) 4 - 8 tabs PO UD PRN; Protocol PRN Reason: Hypoglycemia Protocol Stop: 05/28/21 14:53 Glucose (Glucose 40% Gel 15 Gm Tube) 15 - 30 gm PO UD PRN; Protocol PRN Reason: Hypoglycemia Protocol Stop: 05/28/21 14:53 Heparin Sodium (Porcine) (Heparin Sod 5,000 Unit/0.5 Ml Vial) 7,500 units SQ Q8 [facility] Stop: 05/29/21 21:59 Last Admin: 05/02/21 07:11 Dose: 7,500 units Documented by: Dexamethasone 6 mg/ Syringe 1.5 mls @ 1 mls/min IV DAILY [facility] Stop: 05/08/21 09:02 Last Admin: 05/02/21 08:32 Dose: 1 mls/min Documented by: Insulin Aspart (Insulin Aspart Per Unit) 0 units SC ACHS [facility] Stop: 05/28/21 11:29 Last Admin: 05/02/21 09:58 Dose: 16 units Documented by: Insulin Glargine (Insulin Glargine Solostar 100 Units/Ml 3 Ml Pen) 60 units SC DAILY [facility] Stop: 06/01/21 08:59 Last Admin: 05/02/21 09:59 Dose: 60 units Documented by: Insulin Human NPH (Insulin Human Nph) 40 units SC DAILY [facility] Stop: 05/30/21 08:59 Last Admin: 05/02/21 09:59 Dose: 40 units Documented by: Levothyroxine Sodium (Levothyroxine Sodium 50 Mcg Tablet) 50 mcg PO DAILYBB [facility] Stop: 05/29/21 06:29 Last Admin: 05/02/21 07:12 Dose: 50 mcg Documented by: Magnesium Hydroxide (Magnesium Hydroxide Susp 30 Ml Udc) 30 ml PO Q12H PRN PRN Reason: Constipation Stop: 05/28/21 14:53 Miscellaneous (Carbohydrates For Hypoglycemia ) 15 - 30 gm PO UD PRN PRN Reason: Hypoglycemia Protocol Stop: 05/28/21 14:53 Miscellaneous Information (Pharmacy Glycemic Mgmt Consult) 1 ea N/A UD PRN PRN Reason: Consult Stop: 05/29/21 12:21 Ondansetron HCl (Ondansetron Inj 2 Mg/Ml 2 Ml Vial) 4 mg IV Q6H PRN PRN Reason: Nausea Stop: 05/28/21 14:53 Polyethylene Glycol (Polyethylene (Miralax) 17 Gm Pack) 17 gm PO DAILY PRN PRN Reason: Constipation Stop: 05/28/21 14:53 Sodium Chloride (Sodium Chloride 0.65% Na Soln 45 Ml ([place])) 2 sprays JUSTA UD PRN PRN Reason: Congestion Stop: 05/28/21 14:53 Tamsulosin HCl (Tamsulosin Hcl 0.4 Mg Cap) 0.[facility] mg [facility] [place] Stop: 05/29/21 08:59 Last Admin: 05/02/21 08:24 Dose: 0.4 mg Documented by: Tramadol HCl (Tramadol Hcl 50 Mg Tablet) 50 mg PO Q8 PRN PRN Reason: Pain Stop: 05/28/21 14:53
[2021-05-02] MEDS ORDERED: FUROSEMIDE INJ 20 MG/2 ML VIAL IV ONE (13:25)
--- NOTE | 2021-05-02 13:28 | Critical Care Consultation ---
Date of Consultation May 02, 2021 Assessment & Plan (1) ARDS (adult respiratory distress syndrome): (2) Pneumonia due to 2019 novel coronavirus: Impression: 65-year-old male unvaccinated for Covid now admitted with Covid pneumonitis. He had escalation of his oxygen requirement over the last 24hours. He is currently not in any respiratory distress. He is relatively late in the course of his disease with his respiratory symptoms initiating about 3 to 4 weeks ago. His CRP is climbing. Recommendations: 1. Acute hypoxemic respiratory failure/ARDS: The patient is breathing comfortably and maintaining adequate oxygen saturations currently. Do not think he needs urgent intubation although he certainly could progress that direction. Would continue to alternate between heated high flow oxygen therapy potentially with a nonrebreather over the top with CPAP or BiPAP. 2. Recommend checking procalcitonin and BNP. Empiric diuretics may be beneficial. Defer echocardiogram for now. 3. We will check follow-up chest x-ray. Depending on that result, could consider CT angiogram to exclude PE and get a better assessment of his pulmonary parenchyma. 4. Patient is greater than 72 hours since admission so does not meet criteria for Tocilizumab. Given his elevated CRP and the fact that the patient is likely been ill for over 3 weeks, we will institute Dex ARDS dosing at 20 mg a day of prednisone for 5 days followed by 10 mg a day for 5 days. 5. The patient should attempt to be in the lateral decubitus position if at all possible. Given his morbid obesity, I do not think proning is an option. His age and comorbidities preclude ECMO or any other advanced therapies. 5. Indications for intubation mechanical ventilation this patient would be failure to maintain adequate oxygen saturations, increased work of breathing or respiratory muscle fatigue, or altered mental status. He appears to be doing well currently and wishes to continue on his current therapy. We will see how he does. The patient is critically ill at this point time with significant probability of clinical deterioration and . 50 minutes critical care time evaluating managing coordinating care for this patient. He states he would be open to intubation mechanical ventilation and tracheostomy and PEG tube if required. I advised him that if he goes on to progress to need mechanical ventilation, given his late presentation, it is possible that he may not come off of the ventilator . He expressed understanding and is in agreement to proceed if needed. History of Present Illness Attending Physician: Naila Barrios DO History of Present Illness Asked by hospitalist to assist in evaluation management this patient with hypoxemic respiratory failure requiring noninvasive positive pressure ventilation secondary to Covid pneumonitis. History is obtained from review the electronic medical record as well as discussion with the patient. Patient is a 65-year-old male who was admitted to the facility 04/28/2021. He is unvaccinated. He was admitted back in February for a crush injury of the lower extremity and had blood cultures positive for Morganella at that point time. He was treated with dexamethasone 6 mg daily and admitted the hospitalist service. He has had escalation in his oxygen requirement is currently requiring noninvasive positive pressure ventilation in the form of CPAP/BiPAP. When I assessed the patient he is talking comfortably on the phone. He is currently on full face BiPAP. He states he does not feel that he is having any respiratory muscle fatigue. His respiratory rate is mildly elevated. He is morbidly obese and cannot prone. He is comfortable and states that he is not experiencing any respiratory muscle fatigue. Allergies Allergy/AdvReac Type Severity Reaction Status Date / Time atenolol Allergy Intermediate turns Verified 02/19/21 01:42 bright yellow Home Medications Medication Instructions Recorded Confirmed Type albuterol sulfate 90 mcg/actuation 2 puff INHALATION Q4 PRN 02/01/19 04/28/21 History aerosol inhaler alprostadil 40 mcg intracavernosal 40 mcg INTRA-CAVERNOSAL UD PRN 02/01/19 04/28/21 History solution (Caverject) amlodipine 5 mg tablet 5 mg PO HS 02/01/19 04/28/21 History aspirin 81 mg tablet,delayed 81 mg PO QAM 02/01/19 04/28/21 History release atorvastatin 40 mg tablet 40 mg PO HS 02/01/19 04/28/21 History budesonide-formoterol HFA 80 2 puff INHALATION BID 02/01/19 04/28/21 History mcg-4.5 mcg/actuation aerosol inhaler dulaglutide 1.5 mg/0.5 mL 1.5 mg SUBCUT WK 02/01/19 04/28/21 History subcutaneous pen injector (Trulicity) finasteride 5 mg tablet 5 mg PO QAM 02/01/19 04/28/21 History glimepiride 4 mg tablet 4 mg PO QAM 02/01/19 04/28/21 History levothyroxine 50 mcg tablet 50 mcg PO QAM 02/01/19 04/28/21 History lisinopril 40 mg tablet 40 mg PO HS 02/01/19 04/28/21 History omega 4-dvq-qle-fish oil 60 mg-90 1 cap PO QAM 02/01/19 04/28/21 History mg-500 mg capsule (Fish Oil) pioglitazone 30 mg tablet 30 mg PO QAM 02/01/19 04/28/21 History prednisone 20 mg tablet 40 mg PO UD PRN 02/01/19 04/28/21 History sildenafil (pulm.hypertension) 20 40 - 60 mg PO UD PRN MDD 1dose 02/01/19 04/28/21 History mg tablet (Revatio) tamsulosin 0.4 mg capsule 0.4 mg PO QAM 02/01/19 04/28/21 History testosterone cypionate 200 mg/mL 200 mg IM .EVERY 14 DAYS 02/01/19 04/28/21 History intramuscular kit torsemide 100 mg tablet 50 mg PO Q OTHER DAY 02/01/19 04/28/21 History tramadol 50 mg tablet 50 mg PO Q8 PRN 02/01/19 04/28/21 History ascorbic acid (vitamin C) 1,000 mg 1 g PO DAILY 02/19/21 04/28/21 History tablet fenofibrate 54 mg tablet 54 mg PO DAILY 02/19/21 04/28/21 History sodium chloride 0.65 % nasal spray 2 spray INTRANASAL UD PRN 02/19/21 04/28/21 History aerosol (Saline Mist) doxycycline hyclate 100 mg capsule 100 mg PO BID 04/28/21 04/28/21 History Patient History Medical History (Updated 05/02/21 @ 13:22 by Eder Alcaraz MD) BPH (benign prostatic hyperplasia) Chronic obstructive pulmonary disease Diabetes mellitus, type 2 Hearing deficit History of bleeding ulcers History of colon polyps Hyperlipidemia Hypertension Hypothyroidism Sleep apnea cpap Tremor of left hand Surgical History History of colonoscopy History of esophagogastroduodenoscopy (EGD) History of tooth extraction Hx of vasectomy Status post LASIK surgery of both eyes Family History Grandmother (Maternal) Family history of diabetes mellitus Other No family history of adverse response to anesthesia Social History Smoking Status: Former smoker Tobacco Type: Cigarettes Second Hand Exposure: Yes; Do You Dip or Chew Tobacco: No; Hx Alcohol Use: No Hx Substance Use: No Preferred Language: Beninese Communication Ability: Effective Billiard Player Required: No Beliefs That Will Affect Care: None Current Living Situation: Spouse Current Living Situation Comment: Lives with and 2 children Other Information That Helps Us Care for You: No Feels Safe at Home: Yes Safety Concerns: Feels Safe At This Time Assistive Devices: Oxygen - Continuous Review of Systems Review of Systems: Please refer to the hospitalist's note. I have no additions or deletions Physical Exam Constitutional: + morbidly obese; no acute distress Neck: trachea midline, no thyromegaly Respiratory: normal respiratory effort and + tachypneic; no respiratory distress and no labored breathing Cardiovascular: RRR, no murmur, no edema Gastrointestinal (Abdomen): normal bowel sounds, soft, nontender, no hepatosplenomegaly Musculoskeletal: Extremities: extremities normal to inspection Skin: no rashes, warm and dry Neurologic: Nonfocal exam Lymphatic: no cervical lymphadenopathy Results & Data Results & Data ([facility]) Vital Signs (Past 12 Hours) Vital Signs Temp Pulse Pulse Resp BP Pulse Ox 05/02/21 11:43 36.9 C 103 H 24 130/79 94 05/02/21 11:14 107 H 24 93 05/02/21 08:00 101 H 05/02/21 07:48 107 H 18 94 05/02/21 07:37 37.7 C H 108 H 20 150/65 H 95 05/02/21 03:21 37.0 C 102 H 22 136/87 92 05/02/21 01:36 98 H 21 92 Critical Care Results & Data Vital Signs (Past 12 Hours) Vital Signs Temp Pulse Pulse Resp BP Pulse Ox 05/02/21 11:43 36.9 C 103 H 24 130/79 94 05/02/21 11:14 107 H 24 93 05/02/21 08:00 101 H 05/02/21 07:48 107 H 18 94 05/02/21 07:37 37.7 C H 108 H 20 150/65 H 95 05/02/21 03:21 37.0 C 102 H 22 136/87 92 05/02/21 01:36 98 H 21 92 Lab & Micro Results (Past 24 Hours) RBC 4.76 M/uL (4.7-6.1) 05/02/21 WBC 8.00 K/uL (4.8-10.8) 05/02/21 Hgb 14.9 g/dL (14.0-18.0) 05/02/21 Hct 43.0 % (42-52) 05/02/21 MCV 90.3 fL (80-100) 05/02/21 MCH 31.3 pg (25-34) 05/02/21 MCHC 34.7 g/dL (32-36) 05/02/21 RDW Standard Deviation 44.2 fL (36.4-46.3) 05/02/21 RDW Coefficient of Variation 13.3 % (11.5-14.5) 05/02/21 Plt Count 276 K/uL (130-400) 05/02/21 MPV 10.6 fL (7.4-10.4) H 05/02/21 Na 136 mmol/L (136-145) 05/02/21 K 4.1 mmol/L (3.5-5.1) 05/02/21 Cl 103 mmol/L (98-107) 05/02/21 CO2 24 mmol/L (21-32) 05/02/21 Anion Gap 9.0 (3-11) 05/02/21 BUN 52 mg/dl (7-18) H 05/02/21 Creatinine 1.70 mg/dl (0.6-1.4) H 05/02/21 Estimated GFR ( Amer) 48.7 ml/min 05/02/21 Estimated GFR (Non-Af Amer) 42.0 ml/min 05/02/21 BUN/Creatinine Ratio 30.7 (10-20) H 05/02/21 Glu 205 mg/dl (70-99) H 05/02/21 Ca 9.5 mg/dl (8.5-10.1) 05/02/21 Calcium Level 9.5 mg/dl (8.5-10.1) 05/02/21 07:19 05/02/21 I & O Totals 24 Hours 05/01/21 05/02/21 05/03/21 06:59 06:59 06:59 Intake Total 1290 / 1290 840 / 840 Output Total 1526 / 1526 1751 / 1751 Balance -236 / -236 -911 / -911 Cumulative 04/28/21 08:40 thru 05/01/21 22:00 Intake Total 4778.371 Output Total 5952 Balance -1173.629 RT Ventilator Mngmt (Last Documented) Ventilator Ordered Settings Respiratory Rate 24 05/02/21 11:43 Fraction of Inspired Oxygen 80 05/02/21 11:14 Ventilator - PT Measurements Respiratory Rate 24 Coding Level of Care Code Critical Care 1st 30-74 mins Diagnoses ARDS (adult respiratory distress syndrome) J80 Pneumonia due to 2019 novel coronavirus U07.1; J12.82 Time Spent (min) 50
[2021-05-02 13:39] LABS: Allen Test Pos (Pos); Base Excess ABG 0.3 mEq/L (-9-1.8); HCO3 ABG 23 mmol/L (19-24); Oxygen Saturation ABG 96.9 % (90-95); PCO2 ABG 32 mmHg (35-46); PO2 ABG 84 mmHg (80-95); pH ABG 7.47 (7.35-7.45)
--- NOTE | 2021-05-02 14:06 | XRay Report ---
XR chest 1V portable HISTORY: 65 years-old Male worsening hypoxia covid pneumonia acute hypoxia with pneumonia COMPARISON: 04/28/2021 chest radiograph TECHNIQUE: Portable AP view of the chest FINDINGS: Cardiac silhouette is enlarged. No pneumothorax or large pleural effusion. Interstitial coarsening wi th ill-defined patchy multifocal airspace opacities within a mid to lower lung predominant distributi on appears generally unchanged. Spondylitic spurring of the spine. IMPRESSION: Cardiomegaly with stable appearance of the multifocal airspace opacities suggestive of pn eumonia. ACT 112: Negative or not required by law. The above report was generated using voice recognition software. It may contain grammatical, syntax o r spelling errors. Electronically signed by: Mario Peter M.D. 05/02/2021 2:05 PM
[2021-05-02] MEDS: ALBUTEROL HFA 8 GM INHALER INH PRN (19:47)
[2021-05-02] MEDS: ATORVASTATIN 40 MG TAB PO SCH (20:15)
[2021-05-02] MEDS: amLODIPine BESYLATE 5 MG TAB PO SCH (20:16)
[2021-05-02] MEDS: BUDESONIDE/FORMOTEROL FUMARATE 80/4.5 60 PUFFS/INHALER INH SCH (23:52)
[2021-05-03] MEDS: LEVOTHYROXINE SODIUM 50 MCG TABLET PO SCH (06:35)
[2021-05-03] MEDS: HEPARIN SOD 5,000 UNIT/0.5 ML VIAL SQ SCH ×3 (06:35→21:35)
[2021-05-03 06:42] LABS: Hematocrit (blood only) 42.3 % (42-52); Hemoglobin 14.9 g/dL (14.0-18.0); Mean Corpuscular Hemoglobin 31.8 pg (25-34); Mean Corpuscular Hgb Conc 35.2 g/dL (32-36); Mean Corpuscular Volume 90.4 fL (80-100); Mean Platelet Volume 10.2 fL (7.4-10.4); Platelet Count 324 K/uL (130-400); RDW Coefficient of Variation 13.3 % (11.5-14.5); RDW Standard Deviation 43.6 fL (36.4-46.3); Red Blood Count 4.68 M/uL (4.7-6.1)
[2021-05-03 07:00] LABS: BUN Creatinine Ratio 33.5 (10-20); Calcium 9.6 mg/dl (8.5-10.1); Creatinine Clr Calc Pharmacy 60.6 ml/min; Est GFR (Non-African American) 42.3 ml/min; Potassium 4.2 mmol/L (3.5-5.1)
--- NOTE | 2021-05-03 08:16 | XRay Report ---
XR chest 1V portable CLINICAL HISTORY: Resp failure TECHNIQUE: Single frontal radiograph of the chest was obtained. Comparison: Comparison is made to chest one view 05/02/2021 FINDINGS: No lines and tubes are seen. Cardiomegaly is noted. Bilateral lower lung predominant airspace opaciti es are seen. No evidence of pleural effusion or pneumothorax. IMPRESSION: Bilateral lower lung predominant airspace opacities which may represent atelectasis, pneumonia, and/o r aspiration. ACT 112: Negative or not required by law. Electronically signed by: Gino Davis M.D. 05/03/2021 8:14 AM
[2021-05-03] MEDS: INSULIN ASPART PER UNIT SC SCH ×4 (08:51→21:35)
[2021-05-03] MEDS: dexAMETHasone 20 MG in DEXTROSE 5% 25 ML IV SCH (08:51)
[2021-05-03] MEDS: FENOFIBRATE NANOCRYSTALLIZED 48 MG TABLET PO SCH (08:53)
[2021-05-03] MEDS: ASPIRIN 81 MG ECTAB PO SCH (08:53)
[2021-05-03] MEDS: OMEGA-3 (PURIFIED FISH OIL) 1 GM CAP PO SCH (08:53)
[2021-05-03] MEDS: TAMSULOSIN HCL 0.4 MG CAP PO SCH (08:53)
[2021-05-03] MEDS: FINASTERIDE 5 MG TAB PO SCH (08:53)
[2021-05-03] MEDS: BUDESONIDE/FORMOTEROL FUMARATE 80/4.5 60 PUFFS/INHALER INH SCH ×2 (08:54→21:34)
[2021-05-03] MEDS: INSULIN HUMAN NPH SC SCH (08:54)
[2021-05-03] MEDS: INSULIN GLARGINE SOLOSTAR 100 UNITS/ML 3 ML PEN SC SCH (08:55)
[2021-05-03] MEDS: PANTOprazole 40 MG in SYRINGE 0 ML IV SCH ×2 (09:10→21:34)
--- NOTE | 2021-05-03 09:39 | Pharmacy Report ---
Pharmacy Glycemic Short Note 2 - Date of Service May 03, 2021 - Glycemic Short BSG Results (Last 24 hours): 05/02/21 05/02/21 05/02/21 11:40 17:01 20:26 Glucose POC Glucose 281 H 216 H 116 H 05/03/21 05/03/21 06:20 07:12 Glucose 114 H POC Glucose 109 H OUTPATIENT ANTIDIABETIC REGIMEN: * Trulicity SQ on Fridays * Amaryl 4mg PO QAM * Pioglitzaone 30mg PO QAM * A1c = 10.3% on 04/29/21 ASSESSMENT: 05/03 * Pt has received 222 units of insulin over the past 24hrs * 60 units of basal with Lantus * 40 units of NPH for steroid induced hyperglycemia * 122 units of bolus with NovoLog * BSGs finally starting to trend downwards last night and into this morning. Have made significant dose increases over the past 5 days and insulin now at steady state. * AM fasting BSG trending downwards significantly therefore will lower Lantus dosing. * BSGs still elevated d/t dexamethasone and dose just increased to 20mg IV. Will increase NPH. * Empirically loosen CF/CR, aiming for a total of ~ 200 units of insulin today 05/02 * Pt has received 209 units of insulin over the past 24hrs * 50 units of basal with Lantus * 40 units of NPH for steroid induced hyperglycemia * 119 units of bolus with NovoLog * BSGs still elevated with current orders. * Increase one basal insulin at a time. Since fasting is elevated, increase lantus by 20% to 60 units daily. * Since BSGs trend upwards throughout the day, tighten Novolog ever slightly since small changes will produce good effects. * Tight glycemic control warranted 05/01 * Pt has received 198 units of insulin over the past 24hrs * 40 units of basal with Lantus * 40 units of NPH for steroid induced hyperglycemia * 118 units of bolus with NovoLog * BSGs still elevated with current orders. Insulin not likely at steady state yet so will continue with conservative increases. * Increase one basal insulin at a time. Since fasting is elevated, increase lantus by 20% to 50 units daily. * Since BSGs trend upwards throughout the day, tighten Novolog. * Tight glycemic control warranted 04/30 * Pt has received 130 units of insulin over the past 24hrs * 30 units of basal with Lantus * 40 units of NPH for steroid induced hyperglycemia * 60 units of bolus with NovoLog * BSGs still elevated with current orders. Insulin not likely at steady state yet so will continue with conservative increases. * Heparin drip stopped yesterday (mixed in dextrose) so this should relieve some hyperglycemia * Will increase TDD from 130 units to 160 units/day and titrate based on BSG trends * Tight glycemic control warranted 04/29 * 65yo T2DM male admitted for COVID PNA. * Pt with poor outpatient control per A1c * Pt with SEVERE hyperglycemia secondary to poor baseline control, infection, stress, and especially steroids with dexamethasone * Pt initiated on IV insulin infusion + given NPH for dex. * Discussed case with hospitalist and RN. OK to transition off of IV insulin infusion. * Based on stable insulin rate of ~ 4.4 units/hr expecting patient to require ~ 120 units/day of insulin. Will give this as basal with Lantus, NPH for steroid induced hyperglycemia, and Novolog for meals/correctional PLAN FOR INPATIENT GLYCEMIC CONTROL: * Hold outpatient diabetes medications * Basal insulin * Decrease Lantus to 50 units SQ daily in AM * Increase NPH 50 units SQ daily with dexamethasone * Bolus insulin: Loosen CF/CR * NovoLog per scale ACHS or Q6hrs while NPO * Goal Range: Low 110 mg/dL - High 140 mg/dL * Correction Factor: 10 mg/dL/unit * Nutritional / Prandial insulin per carb ratio of 1 unit per 2 grams CHO consumed PLAN FOR DISCHARGE: * TBD, but patient will likely require insulin at dc based on A1c > 10%
--- NOTE | 2021-05-03 10:00 | Hospitalist Progress Note ---
Date of Service May 03, 2021 Assessment & Plan (1) Acute respiratory failure: Plan: 2/2 covid pneumonia (2) Pneumonia due to 2019 novel coronavirus: Plan: Tested positive for SARS COV2 - 04/26/21. Sx have been ongoing and worsening for ~ 3 weeks. aggressive pulmonary toilet with duonebs, ISP, Flutter valve, self proning- declines to prone Does not meet criteria for remdesivir given duration of sx Has been receiving IV dexamethsone CRP improving, so doesn't qualify for baricitinib Continue supplemental oxygen-CPAP as tolerated Evaluated by ICU on 05/02 for possible intubation as patient states he is getting tired. No indication yet for intubation per ICU team. Pt moved to hard wired ICU capable room for closer monitoring. PER CONVERSATION WITH HIM ON 04/30, HE IS A FULL CODE AND OK WITH TRACH IF IT EVER CAME TO THAT. (3) Sepsis: Plan: Secondary to COVID-19 virus infection Pt meets Sepsis criteria 2/2 to tachycardia and fever in setting of known covid- 19 infection. Blood and urine cultures negative to date (4) Accelerated essential hypertension: Plan: Patient was on amlodipine, lisinopril and torsemide at home. I added Norvasc back today, the lisinopril is still held, and I started Imdur and hydralazine as well as Lasix for the elevated blood pressure and to keep him on the dry side. We will monitor blood pressure closely. (5) Elevated troponin: Plan: Likely demand ischemia in setting of acute illness No ST t wave changes, or chest pain (6) Acute renal failure superimposed on stage 3b chronic kidney disease: Plan: Acute on chronic CKD 3 baseline cr 1.7-1.8 follows [facility] nephro avoid nephrotoxic agents, holding lisinopril (7) T2DM (type 2 diabetes mellitus): Plan: consult glycemic pharmacist in setting of hyperglycemia and dexamethasone use at goal (8) Sleep apnea: Plan: CPAP qHS (9) Chronic obstructive pulmonary disease: Plan: chornic, stable, cont Symbicort. (10) DVT prophylaxis: Plan: Heparin Full code Disposition-continue PCU monitoring with escalating oxygen needs Admission and Anticipated Discharge Date Admission Date: April 28, 2021 Anticipated date of discharge: 05/06/21 Subjective Patient was seen in his room, currently on BiPAP, 85% at 55 L, feels a little better than yesterday. Physical Exam Physical Exam: ROS-No Headache, No Visual Changes, No Nausea, No Vomiting, No Fever, No Chills, No Neck Pain or Stiffness, No Chest Pain, No Palpitations, positive SOB, positive PIÑA, positive cough, No Sputum, No Wheezing, No Abdominal Pain, No Diarrhea, No Hematemesis, No Hemoptysis, No Unexpected Weight Loss, No Flank pain, No Melena, No Hematochezia, No Frequency, No Urgency, No Burning, No Hematuria, No Rashes, No Diaphoresis. Appetite is Normal, positive weakness Physical Exam Gen-AAO x 3, NAD, Afebrile, obese, currently on BiPAP 85% and 55 L Head-NCAT, EOMI, PERRLA, Anicteric Sclera, No Posterior Pharyngeal Erythema Neck-Supple, No JVD, No Thyromegaly, No Masses, No LAD, No Bruits Lungs-Clear to Auscultation Bilaterally, No Rales, No Rhonchi, No Wheezing, No Crepitus Chest-No S4, +S1, +S2, No S3, No Murmurs, No Rubs, No Gallops, No Ectopy Abdomen-Soft, Bowel Sounds Present, obese, Non Tender, Non Distended, No Hepatomegaly, No Splenomegaly, No Palpable Masses, No Rebound, No Rigidity, No Guarding Musculoskeletal-Full Range of Motion Bilaterally, No CVAT Extremities-No Cyanosis, No Clubbing, No Edema Nuero-Cranial Nerves II-XII grossly intact, Motor WNL, DTRs WNL, Strength WNL, Non Focal Psych-Normal Mood Results & Data Results & Data ([facility]) Vital Signs (Past 12 Hours) Vital Signs Temp Pulse Resp BP BP Pulse Ox 05/03/21 07:57 37.1 C 87 20 171/100 H 92 05/03/21 03:54 37.3 C 88 21 151/88 H 97 05/02/21 23:32 36.9 C 88 16 152/68 H 95 Laboratory Results Reviewed Diagnostic Findings Chest x-ray todayBilateral lower lung predominant airspace opacities which may represent atelectasis, pneumonia, and/or aspiration
[2021-05-03] MEDS ORDERED: amLODIPine BESYLATE 5 MG TAB PO SCH (10:30)
[2021-05-03] MEDS: hydrALAZINE HCL 25 MG TAB PO SCH ×3 (12:26→21:35)
[2021-05-03] MEDS: FUROSEMIDE INJ 20 MG/2 ML VIAL IV SCH ×2 (12:26→21:34)
[2021-05-03] MEDS: ISOSORBIDE MONO EXTENDED REL 30 MG TABCR PO SCH (12:26)
--- NOTE | 2021-05-03 12:47 | Critical Care Progress Note ---
Date of Service May 03, 2021 Assessment & Plan (1) ARDS (adult respiratory distress syndrome): (2) Pneumonia due to 2019 novel coronavirus: Plan: Impression: 65-year-old male unvaccinated for Covid now admitted with Covid pneumonitis. He had escalation of his oxygen requirement over the last 24hours. He is currently not in any respiratory distress. He is relatively late in the course of his disease with his respiratory symptoms initiating about 3 to 4 we eks ago. His CRP is climbing. Recommendations: --Acute hypoxic respiratory failure Secondary to multilobar COVID-19 pneumonia COVID-19 PCR positive CRP 11 Procalcitonin 0.13 Continue with O2 supplementation to keep oxygen saturation between 90-92%. Awake proning will be helpful Continue with incentive spirometry Continue with flutter valve. Recommend patient to be kept euvolemic to negative balance On high-dose dexamethasone. Continue with Patient is greater than 72 hours since admission so does not meet criteria for Tocilizumab. --COPD Symbicort at home Continue with same Incruse should be added prior to discharge --Diabetes type 2 ICU hypoglycemia protocol --ROWDY Continue with CPAP --Hypertension Continue with blood pressure medications --CKD Unable to do CTA with contrast given the elevated creatinine --Prophylaxis VTE: Heparin GI: Protonix Lines: Peripheral Diet: Cardiac renal Plan: In/out: -186 Continue with incentive spirometry Add Protonix twice daily given the patient is on high-dose DEXA CPAP when he is sleeping or napping Patient is unable to prone. Encouraged to use sleep on the side whenever possible The possibility of patient needing intubation as there. But he is not tachypneic right now continue with the same regimen Continue with diuretics to keep the patient negative balance I have personally spent 33 minutes of critical care time in the direct management of this patient. This is a life/limb threatening event. This includes time spent evaluating patient, direct bedside care, chart review, placing orders, interpretation of diagnostic studies, discussion with consultants, patient, and family members, as well as other required patient management activities. This time is exclusive of all separately billable procedures, and teaching time and separate from and in addition to any other critical care service time. Please note the above document was generated using voice recognition software. It may contain grammatical, syntax or spelling errors. Admission and Anticipated Discharge Date Admission Date: April 28, 2021 Subjective Patient seen and examined at bedside. He was sitting at the edge of the bed Not in any acute distress He says that he is feeling the same compared to yesterday. He has been using incentive spirometry as well as flutter valve He was on 85% high flow saturating 91-92% He has been using CPAP also at night Denies any chest pain, no headache, no, no vomit Review of Systems Review of Systems: All systems reviewed & are unremarkable except as noted in Subjective Physical Exam Physical Exam: Constitutional: No acute distress HEENT: EOMI, PERRLA Respiratory system: Decreased air entry bilaterally, no wheeze, rhonchi, positive crackles bilateral lower lobes CVS: S1-S2 positive, no murmurs or gallops Abdomen: Soft, nontender, nondistended, positive bowel sounds x4, obese Extremities: +2 pulses bilaterally radialis/ dorsalis pedis, no cyanosis, +1 pitting edema bilateral extremity Neuro: Awake alert oriented x3 Psych: Normal mood and affect G/U: No [place] Skin: no rashes, warm and dry Lymphatic: no cervical or axillary lymphadenopathy Results & Data Results & Data ([facility]) Vital Signs (Past 12 Hours) Vital Signs Temp Pulse Pulse Resp BP BP Pulse Ox 05/03/21 11:52 37.6 C H 105 H 18 104/84 95 05/03/21 10:56 85 20 94 05/03/21 09:21 87 05/03/21 07:57 37.1 C 87 20 171/100 H 92 05/03/21 03:54 37.3 C 88 21 151/88 H 97 05/03/21 06:20 05/03/21 06:20 Coding Level of Care Code Critical Care 1st 30-74 mins Diagnoses ARDS (adult respiratory distress syndrome) J80 Pneumonia due to 2019 novel coronavirus U07.1; J12.82 Time Spent (min) 33
--- NOTE | 2021-05-03 14:27 | Ultrasound Report ---
BILATERAL LOWER EXTREMITY VENOUS DOPPLER HISTORY: Acute pain and swelling of the lower legs r/o DVT, B/l COMPARISON STUDY: Duplex venous Doppler study 02/18/2021 FINDINGS: There is normal compressibility, flow, and augmentation within the bilateral lower extremit y deep venous systems. IMPRESSION: No DVT within the right or left lower extremity. ACT 112: Negative or not required by law. Electronically signed by: Mario Peter M.D. 05/03/2021 2:26 PM
[2021-05-03] MEDS: amLODIPine BESYLATE 5 MG TAB PO SCH (21:35)
[2021-05-03] MEDS: ATORVASTATIN 40 MG TAB PO SCH (21:35)
[2021-05-04] MEDS: hydrALAZINE HCL 25 MG TAB PO SCH ×4 (04:03→20:51)
[2021-05-04] MEDS: HEPARIN SOD 5,000 UNIT/0.5 ML VIAL SQ SCH ×3 (05:53→20:46)
[2021-05-04] MEDS: LEVOTHYROXINE SODIUM 50 MCG TABLET PO SCH (05:54)
[2021-05-04 06:06] LABS: Hematocrit (blood only) 42.2 % (42-52); Hemoglobin 14.8 g/dL (14.0-18.0); Mean Corpuscular Hemoglobin 31.4 pg (25-34); Mean Corpuscular Hgb Conc 35.1 g/dL (32-36); Mean Corpuscular Volume 89.4 fL (80-100); Mean Platelet Volume 10.2 fL (7.4-10.4); Platelet Count 347 K/uL (130-400); RDW Coefficient of Variation 13.1 % (11.5-14.5); RDW Standard Deviation 43.2 fL (36.4-46.3); Red Blood Count 4.72 M/uL (4.7-6.1); White Blood Count 8.16 K/uL (4.8-10.8)
[2021-05-04 06:38] LABS: Albumin Level 2.2 gm/dl (3.4-5.0); BUN Creatinine Ratio 35.4 (10-20); Calcium 9.1 mg/dl (8.5-10.1); Creatinine Clr Calc Pharmacy 53.8 ml/min; Est GFR (African American) 42.5 ml/min; Est GFR (Non-African American) 36.7 ml/min; Potassium 4.1 mmol/L (3.5-5.1)
[2021-05-04 06:41] LABS: Albumin Globulin Ratio 0.5 (0.9-2); Bilirubin,Total 0.6 mg/dl (0.2-1); Globulin 4.4 gm/dl (2.5-4.0); Total Protein 6.6 gm/dl (6.4-8.2)
--- NOTE | 2021-05-04 08:18 | XRay Report ---
XR chest 1V portable CLINICAL HISTORY: Resp failure TECHNIQUE: Single frontal radiograph of the chest was obtained. Comparison: Comparison is made to chest one view 05/03/2021 FINDINGS: No lines and tubes are seen. The cardiomediastinal silhouette is normal. Bilateral lower lung predomi nant airspace opacities are seen. No evidence of pleural effusion or pneumothorax. IMPRESSION: Bilateral lower lung predominant airspace opacities which may represent atelectasis, pneumonia, and/o r aspiration. Findings are similar to prior exam. ACT 112: Negative or not required by law. Electronically signed by: Gino Davis M.D. 05/04/2021 8:17 AM
[2021-05-04] MEDS: dexAMETHasone 20 MG in DEXTROSE 5% 25 ML IV SCH (08:44)
[2021-05-04] MEDS: ASPIRIN 81 MG ECTAB PO SCH (08:45)
[2021-05-04] MEDS: ISOSORBIDE MONO EXTENDED REL 30 MG TABCR PO SCH (08:45)
[2021-05-04] MEDS: FINASTERIDE 5 MG TAB PO SCH (08:45)
[2021-05-04] MEDS: FUROSEMIDE INJ 20 MG/2 ML VIAL IV SCH ×2 (08:45→18:18)
[2021-05-04] MEDS: OMEGA-3 (PURIFIED FISH OIL) 1 GM CAP PO SCH (08:46)
[2021-05-04] MEDS: BUDESONIDE/FORMOTEROL FUMARATE 80/4.5 60 PUFFS/INHALER INH SCH ×2 (08:46→20:48)
[2021-05-04] MEDS: INSULIN HUMAN NPH SC SCH (08:47)
[2021-05-04] MEDS: TAMSULOSIN HCL 0.4 MG CAP PO SCH (08:47)
[2021-05-04] MEDS: PANTOprazole 40 MG in SYRINGE 0 ML IV SCH ×2 (08:47→20:45)
[2021-05-04] MEDS: INSULIN GLARGINE SOLOSTAR 100 UNITS/ML 3 ML PEN SC SCH (08:48)
[2021-05-04] MEDS: INSULIN ASPART PER UNIT SC SCH ×5 (08:50→20:59)
[2021-05-04] MEDS: ACETAMINOPHEN 325 MG TAB PO PRN ×2 (09:08→18:19)
--- NOTE | 2021-05-04 09:14 | Pharmacy Report ---
Pharmacy Glycemic Short Note 2 - Date of Service May 04, 2021 - Glycemic Short BSG Results (Last 24 hours): 05/03/21 05/03/21 05/03/21 11:39 16:16 21:16 Glucose POC Glucose 198 H 203 H 255 H 05/04/21 05/04/21 05:46 07:18 Glucose 161 H POC Glucose 166 H OUTPATIENT ANTIDIABETIC REGIMEN: * Trulicity SQ on Fridays * Amaryl 4mg PO QAM * Pioglitzaone 30mg PO QAM * A1c = 10.3% on 04/29/21 ASSESSMENT: 05/04 * Stressors stable - dexamethasone 20 mg day 2 of 5 * AM fasting BSG with trend up, but regimen was just adjusted yesterday. Will keep for now and potentially adjust tomorrow if trend continues * Post-prandial BSG's all >180 mg/dL yesterday and was >300 mg/dL prior to lunch today. Will give one-time IV bolus and tighten CHO ratio 05/03 * Pt has received 222 units of insulin over the past 24hrs * 60 units of basal with Lantus * 40 units of NPH for steroid induced hyperglycemia * 122 units of bolus with NovoLog * BSGs finally starting to trend downwards last night and into this morning. Have made significant dose increases over the past 5 days and insulin now at steady state. * AM fasting BSG trending downwards significantly therefore will lower Lantus dosing. * BSGs still elevated d/t dexamethasone and dose just increased to 20mg IV. Will increase NPH. * Empirically loosen CF/CR, aiming for a total of ~ 200 units of insulin today 05/02 * Pt has received 209 units of insulin over the past 24hrs * 50 units of basal with Lantus * 40 units of NPH for steroid induced hyperglycemia * 119 units of bolus with NovoLog * BSGs still elevated with current orders. * Increase one basal insulin at a time. Since fasting is elevated, increase lantus by 20% to 60 units daily. * Since BSGs trend upwards throughout the day, tighten Novolog ever slightly since small changes will produce good effects. * Tight glycemic control warranted PLAN FOR INPATIENT GLYCEMIC CONTROL: * Hold outpatient diabetes medications * Insulin regular 5 units IV x1 at lunch * Basal insulin * Lantus to 50 units SQ daily in AM * NPH 50 units SQ daily with dexamethasone * Bolus insulin: Loosen CF/CR * NovoLog per scale ACHS or Q6hrs while NPO * Goal Range: Low 110 mg/dL - High 140 mg/dL * Correction Factor: 10 mg/dL/unit * Nutritional / Prandial insulin per carb ratio of 1 unit per 1.7 grams CHO consumed PLAN FOR DISCHARGE: * TBD, but patient will likely require insulin at dc based on A1c > 10%
[2021-05-04] MEDS: FENOFIBRATE NANOCRYSTALLIZED 48 MG TABLET PO SCH (09:33)
--- NOTE | 2021-05-04 10:09 | Hospitalist Progress Note ---
Date of Service May 04, 2021 Assessment & Plan (1) Acute respiratory failure: Plan: 2/2 covid pneumonia (2) Pneumonia due to 2019 novel coronavirus: Plan: Tested positive for SARS COV2 - 04/26/21. Sx have been ongoing and worsening for ~ 3 weeks. aggressive pulmonary toilet with duonebs, ISP, Flutter valve, self proning- declines to prone Does not meet criteria for remdesivir given duration of sx Has been receiving IV dexamethsone CRP improving, so doesn't qualify for baricitinib Continue supplemental oxygen-high flow nasal cannula plus or minus BiPAP Evaluated by ICU on 05/02 for possible intubation as patient states he is getting tired. No indication yet for intubation per ICU team. Pt moved to ICU capable room for closer monitoring. PER CONVERSATION WITH HIM ON 04/30, HE IS A FULL CODE AND OK WITH TRACH IF IT EVER CAME TO THAT. (3) Sepsis: Plan: Secondary to COVID-19 virus infection Pt met Sepsis criteria 2/2 to tachycardia and fever in setting of known covid-19 infection. Blood and urine cultures negative to date (4) Accelerated essential hypertension: Plan: Patient was on amlodipine, lisinopril and torsemide at home. I added Norvasc back today, the lisinopril is still held, and I started Imdur and hydralazine as well as Lasix for the elevated blood pressure and to keep him on the dry side. We will monitor blood pressure closely. (5) Elevated troponin: Plan: Likely demand ischemia in setting of acute illness No ST t wave changes, or chest pain (6) Acute renal failure superimposed on stage 3b chronic kidney disease: Plan: Acute on chronic CKD 3 baseline cr 1.7-1.8 [place] [facility] [place] nephrotoxic agents, holding lisinopril (7) T2DM (type 2 diabetes mellitus): Plan: glycemic pharmacist in setting of hyperglycemia and dexamethasone use at goal (8) Sleep apnea: Plan: CPAP qHS (9) Chronic obstructive pulmonary disease: Plan: chornic, stable, cont Symbicort. (10) DVT prophylaxis: Plan: Heparin Full code Disposition-continue PCU monitoring with escalating oxygen needs Admission and Anticipated Discharge Date Admission Date: April 28, 2021 Subjective Patient seen in his room, sitting up eating breakfast, looks to be in a little bit of respiratory distress compared to yesterday, RNs about to put him on BiPAP. Physical Exam Physical Exam: ROS-No Headache, No Visual Changes, No Nausea, No Vomiting, No Fever, No Chills, No Neck Pain or Stiffness, No Chest Pain, No Palpitations, positive SOB, positive PIÑA, positive cough, No Sputum, No Wheezing, No Abdominal Pain, No Diarrhea, No Hematemesis, No Hemoptysis, No Unexpected Weight Loss, No Flank pain, No Melena, No Hematochezia, No Frequency, No Urgency, No Burning, No Hematuria, No Rashes, No Diaphoresis. Appetite is Normal, positive weakness Physical Exam Gen-AAO x 3, NAD, Afebrile, obese, currently on high flow nasal cannula 100 % and 55 L Head-NCAT, EOMI, PERRLA, Anicteric Sclera, No Posterior Pharyngeal Erythema Neck-Supple, No JVD, No Thyromegaly, No Masses, No LAD, No Bruits Lungs-Clear to Auscultation Bilaterally, No Rales, No Rhonchi, No Wheezing, No Crepitus Chest-No S4, +S1, +S2, No S3, No Murmurs, No Rubs, No Gallops, No Ectopy Abdomen-Soft, Bowel Sounds Present, obese, Non Tender, Non Distended, No Hepatomegaly, No Splenomegaly, No Palpable Masses, No Rebound, No Rigidity, No Guarding Musculoskeletal-Full Range of Motion Bilaterally, No CVAT Extremities-No Cyanosis, No Clubbing, No Edema Nuero-Cranial Nerves II-XII grossly intact, Motor WNL, DTRs WNL, Strength WNL, Non Focal Psych-Normal Mood Results & Data Results & [facility] ([facility]) Vital Signs (Past 12 Hours) Vital Signs Temp Pulse Pulse Resp BP Pulse Ox 05/04/21 07:46 20 90 05/04/21 07:40 87 05/04/21 07:19 36.5 C 88 22 129/82 91 05/04/21 03:41 36.5 C 79 22 142/78 H 90 05/04/21 03:27 72 18 91 05/03/21 22:07 36.8 C 74 18 145/70 H 94
[2021-05-04] MEDS ORDERED: INSULIN HUMAN REGULAR PER UNIT 5 UNITS in SYRINGE 4.95 ML IV ONE (11:45)
--- NOTE | 2021-05-04 12:17 | Critical Care Progress Note ---
Date of Service May 04, 2021 Assessment & Plan (1) ARDS (adult respiratory distress syndrome): (2) Pneumonia due to 2019 novel coronavirus: Plan: Impression: 65-year-old male unvaccinated for Covid now admitted with Covid pneumonitis. He had escalation of his oxygen requirement over the last 24hours. He is currently not in any respiratory distress. He is relatively late in the course of his disease with his respiratory symptoms initiating about 3 to 4 we eks ago. His CRP is climbing. Recommendations: --Acute hypoxic respiratory failure Secondary to multilobar COVID-19 pneumonia COVID-19 PCR positive CRP 11 Procalcitonin 0.13 Continue with O2 supplementation to keep oxygen saturation between 90-92%. Awake proning will be helpful Continue with incentive spirometry Continue with flutter valve. Recommend patient to be kept euvolemic to negative balance On high-dose dexamethasone. With PPI twice daily Patient is greater than 72 hours since admission so does not meet criteria for Tocilizumab. Venous Doppler bilateral lower extremity negative 05/03/2021 --COPD Symbicort at home Continue with same Incruse should be added prior to discharge --Diabetes type 2 ICU hypoglycemia protocol --ROWDY Continue with CPAP --Hypertension Continue with blood pressure medications --CKD Unable to do CTA with contrast given the elevated creatinine --Prophylaxis VTE: Heparin GI: Protonix Lines: Peripheral Diet: Cardiac renal Plan: In/out: -1850, urine output 2250 Patient's creatinine went up a little bit I will decrease the Lasix to 40 mg every 12 hours instead of 60 mg Patient oxygen requirement has gone up compared to yesterday but patient is not in any distress and personally he states that he feels better. He is still very critical and he might need intubation in the near future I have personally spent 31 minutes of critical care time in the direct management of this patient. This is a life/limb threatening event. This includes time spent evaluating patient, direct bedside care, chart review, placing orders, interpretation of diagnostic studies, discussion with consultants, patient, and family members, as well as other required patient management activities. This time is exclusive of all separately billable procedures, and teaching time and separate from and in addition to any other critical care service time. Please note the above document was generated using voice recognition software. It may contain grammatical, syntax or spelling errors. Admission and Anticipated Discharge Date Admission Date: April 28, 2021 Subjective Patient seen and examined at bedside. No acute distress, Patient was saturating 94% on 100% high flow the time of examination He did use his BiPAP overnight. As per the patient he states that he is feeling better compared to yesterday. His oxygen requirement has gone up compared to yesterday. He is not in any respiratory distress Review of Systems Review of Systems: All systems reviewed & are unremarkable except as noted in Subjective Physical Exam Physical Exam: Constitutional: No acute distress HEENT: EOMI, PERRLA Respiratory system: Decreased air entry bilaterally, no wheeze, rhonchi, positive crackles bilateral lower lobes CVS: S1-S2 positive, no murmurs or gallops Abdomen: Soft, nontender, nondistended, positive bowel sounds x4, obese Extremities: +2 pulses bilaterally radialis/ dorsalis pedis, no cyanosis, +1 pitting edema bilateral extremity Neuro: Awake alert oriented x3 Psych: Normal mood and affect G/U: No [place] Skin: no rashes, warm and dry Lymphatic: no cervical or axillary lymphadenopathy Results & Data Results & Data ([facility]) Vital Signs (Past 12 Hours) Vital Signs Temp Pulse Pulse Resp BP Pulse Ox 05/04/21 11:41 80 20 94 05/04/21 11:17 36.7 C 85 20 118/71 92 05/04/21 07:46 20 90 05/04/21 07:40 87 05/04/21 07:19 36.5 C 88 22 129/82 91 05/04/21 03:41 36.5 C 79 22 142/78 H 90 05/04/21 03:27 72 18 91 05/04/21 05:46 05/04/21 05:46 Coding Level of Care Code Critical Care 1st 30-74 mins Diagnoses ARDS (adult respiratory distress syndrome) J80 Pneumonia due to 2019 novel coronavirus U07.1; J12.82 Time Spent (min) 31
[2021-05-04] MEDS ORDERED: INSULIN HUMAN REGULAR PER UNIT 10 UNITS in SYRINGE 9.9 ML IV ONE (15:30)
[2021-05-04] MEDS: ATORVASTATIN 40 MG TAB PO SCH (20:46)
[2021-05-04] MEDS: amLODIPine BESYLATE 5 MG TAB PO SCH (20:46)
[2021-05-05] MEDS ORDERED: INSULIN ASPART PER UNIT SC ONE (02:00)
[2021-05-05] MEDS: hydrALAZINE HCL 25 MG TAB PO SCH ×4 (04:07→19:25)
[2021-05-05] MEDS: HEPARIN SOD 5,000 UNIT/0.5 ML VIAL SQ SCH ×3 (06:06→19:27)
[2021-05-05] MEDS: LEVOTHYROXINE SODIUM 50 MCG TABLET PO SCH (06:06)
[2021-05-05 07:08] LABS: Hematocrit (blood only) 41.5 % (42-52); Hemoglobin 14.6 g/dL (14.0-18.0); Mean Corpuscular Hemoglobin 31.2 pg (25-34); Mean Corpuscular Hgb Conc 35.2 g/dL (32-36); Mean Corpuscular Volume 88.7 fL (80-100); Mean Platelet Volume 10.5 fL (7.4-10.4); Platelet Count 359 K/uL (130-400); RDW Coefficient of Variation 12.8 % (11.5-14.5); RDW Standard Deviation 41.2 fL (36.4-46.3); Red Blood Count 4.68 M/uL (4.7-6.1); White Blood Count 10.42 K/uL (4.8-10.8)
[2021-05-05 07:41] LABS: BUN Creatinine Ratio 38.4 (10-20); Calcium 9.2 mg/dl (8.5-10.1); Creatinine Clr Calc Pharmacy 49.1 ml/min; Est GFR (African American) 38.4 ml/min; Est GFR (Non-African American) 33.1 ml/min; Magnesium 2.3 mg/dl (1.8-2.4); Phosphorus 4.4 mg/dl (2.5-4.9); Potassium 3.8 mmol/L (3.5-5.1)
--- NOTE | 2021-05-05 08:04 | XRay Report ---
XR chest 1V portable CLINICAL HISTORY: Resp failure TECHNIQUE: Single frontal radiograph of the chest was obtained. Comparison: Comparison is made to chest one view 05/04/2021 FINDINGS: No lines and tubes are seen. The cardiomediastinal silhouette is stable. Bilateral lower lobe predomi nant opacities are slightly less prominent than the prior exam. No evidence of pleural effusion or pn eumothorax. IMPRESSION: Bilateral lower lobe predominant opacities are slightly less prominent than the prior exam. ACT 112: Negative or not required by law. Electronically signed by: Gino Davis M.D. 05/05/2021 8:03 AM
--- NOTE | 2021-05-05 08:42 | Hospitalist Progress Note ---
Date of Service May 05, 2021 Assessment & Plan (1) Acute respiratory failure: Plan: 2/2 covid pneumonia (2) Pneumonia due to 2019 novel coronavirus: Plan: Tested positive for SARS COV2 - 04/26/21. Sx have been ongoing and worsening for ~ 3 weeks. aggressive pulmonary toilet with duonebs, ISP, Flutter valve, self proning- declines to prone Does not meet criteria for remdesivir given duration of sx Has been receiving IV dexamethsone CRP initially improving, but now up at 11 Continue supplemental oxygen-high flow nasal cannula plus or minus BiPAP Evaluated by ICU on 05/02 for possible intubation as patient states he is getting tired. No indication yet for intubation per ICU team. Pt moved to ICU capable room for closer monitoring. Pulmonary/ ICU following PER CONVERSATION WITH HIM ON 04/30, HE IS A FULL CODE AND OK WITH TRACH IF IT EVER CAME TO THAT. (3) Sepsis: Plan: Secondary to COVID-19 virus infection Pt met Sepsis criteria 2/2 tachycardia and fever in setting of known covid-19 infection. Blood and urine cultures negative to date (4) Accelerated essential hypertension: Plan: Patient was on amlodipine, lisinopril and torsemide at home. Norvasc was resumed, the lisinopril is still held resumed Imdur and hydralazine IV Lasix per pulmonary - now on hold d/t elev. Cr monitor blood pressure closely. (5) Elevated troponin: Plan: Likely demand ischemia in setting of acute illness No ST t wave changes, or chest pain (6) Acute renal failure superimposed on stage 3b chronic kidney disease: Plan: Acute on chronic CKD 3 baseline cr 1.7-1.8 [place] [facility] [place] avoid nephrotoxic agents, holding lisinopril (7) T2DM (type 2 diabetes mellitus): Plan: glycemic pharmacist in setting of hyperglycemia and dexamethasone use at goal (8) Sleep apnea: Plan: CPAP qHS (9) Chronic obstructive pulmonary disease: Plan: chornic, stable, cont Symbicort. (10) DVT prophylaxis: Plan: Heparin Full code Disposition-continue PCU monitoring with escalating oxygen needs Admission and Anticipated Discharge Date Admission Date: April 28, 2021 Subjective Patient seen in follow up of resp. failure 2/2 covid 19 pna Currently laying in bed on cpap Stating feeling well No chest pain, fever, chills. Breathing is better. No abd. pain, n/v Review of Systems Review of Systems: All systems reviewed & are unremarkable except as noted in Subjective Physical Exam Physical Exam: Gen- AAO x 3, NAD, obese M, currently on cpap Head- NCAT, EOMI, PERRL Neck-Supple Lungs- decreased breath sounds, No Wheezing Chest- +S1, +S2, No Murmurs Abdomen-Soft, Bowel Sounds Present, obese, Non Tender, Non Distended, No Guarding Musculoskeletal-Full Range of Motion Bilaterally, No CVAT Extremities-No Cyanosis, No Clubbing, No Edema Neuro- awake and alert, answering questions appropriately, speech fluent, moves extremities Psych-Normal Mood Results & Data Results & Data ([facility]) Vital Signs (Past 12 Hours) Vital Signs Temp Pulse Pulse Resp BP Pulse Ox 05/05/21 08:22 77 20 90 05/05/21 07:25 82 05/05/21 03:54 36.8 C 80 20 120/67 96 05/05/21 00:00 68 05/04/21 23:22 36.9 C 59 L 23 114/52 L 93 Laboratory Results 05/05/21 05/05/21 05/05/21 Range/Units 07:47 06:31 06:31 WBC 10.42 (4.8-10.8) K/uL RBC 4.68 L (4.7-6.1) M/uL Hgb 14.6 (14.0-18.0) g/dL Hct 41.5 L (42-52) % MCV 88.7 (80-100) fL MCH 31.2 (25-34) pg MCHC 35.2 (32-36) g/dL RDW Std Deviation 41.2 (36.4-46.3) fL RDW Coeff of Racquel 12.8 (11.5-14.5) % Plt Count 359 (130-400) K/uL MPV 10.5 H (7.4-10.4) fL Sodium 134 L (136-145) mmol/L Potassium 3.8 (3.5-5.1) mmol/L Chloride 102 (98-107) mmol/L Carbon Dioxide 23 (21-32) mmol/L Anion Gap 9.0 (3-11) BUN 80 H (7-18) mg/dl Creatinine 2.07 H (0.6-1.4) mg/dl Est Cr Clr Drug Dosing 49.1 ml/min Est GFR ( Amer) 38.4 ml/min Est GFR (Non-Af Amer) 33.1 ml/min BUN/Creatinine Ratio 38.4 H (10-20) Glucose 75 (70-99) mg/dl POC Glucose 81 (70-99) mg/dl Calcium 9.2 (8.5-10.1) mg/dl Phosphorus 4.4 (2.5-4.9) mg/dl Magnesium 2.3 (1.8-2.4) mg/dl 05/05/21 05/04/21 05/04/21 Range/Units 02:06 20:22 17:17 WBC (4.8-10.8) K/uL RBC (4.7-6.1) M/uL Hgb (14.0-18.0) g/dL Hct (42-52) % MCV (80-100) fL MCH (25-34) pg MCHC (32-36) g/dL RDW Std Deviation (36.4-46.3) fL RDW Coeff of Racquel (11.5-14.5) % Plt Count (130-400) K/uL MPV (7.4-10.4) fL Sodium (136-145) mmol/L Potassium (3.5-5.1) mmol/L Chloride (98-107) mmol/L Carbon Dioxide (21-32) mmol/L Anion Gap (3-11) BUN (7-18) mg/dl Creatinine (0.6-1.4) mg/dl Est Cr Clr Drug Dosing ml/min Est GFR ( Amer) ml/min Est GFR (Non-Af Amer) ml/min BUN/Creatinine Ratio (10-20) Glucose (70-99) mg/dl POC Glucose 76 252 H 265 H (70-99) mg/dl Calcium (8.5-10.1) mg/dl Phosphorus (2.5-4.9) mg/dl Magnesium (1.8-2.4) mg/dl 05/04/21 05/04/21 05/04/21 Range/Units 15:18 11:19 11:18 WBC (4.8-10.8) K/uL RBC (4.7-6.1) M/uL Hgb (14.0-18.0) g/dL Hct (42-52) % MCV (80-100) fL MCH (25-34) pg MCHC (32-36) g/dL RDW Std Deviation (36.4-46.3) fL RDW Coeff of Racquel (11.5-14.5) % Plt Count (130-400) K/uL MPV (7.4-10.4) fL Sodium (136-145) mmol/L Potassium (3.5-5.1) mmol/L Chloride (98-107) mmol/L Carbon Dioxide (21-32) mmol/L Anion Gap (3-11) BUN (7-18) mg/dl Creatinine (0.6-1.4) mg/dl Est Cr Clr Drug Dosing ml/min Est GFR ( Amer) ml/min Est GFR (Non-Af Amer) ml/min BUN/Creatinine Ratio (10-20) Glucose (70-99) mg/dl POC Glucose 392 H* 309 H* 301 H* (70-99) mg/dl Calcium (8.5-10.1) mg/dl Phosphorus (2.5-4.9) mg/dl Magnesium (1.8-2.4) mg/dl Medications Administered Current Inpatient Medications Acetaminophen (Acetaminophen 325 Mg Tab) 650 mg PO Q4H PRN PRN Reason: Pain or Fever Stop: 05/28/21 14:53 Last Admin: 05/04/21 18:19 Dose: 650 mg Documented by: Al Hydrox/Mg Hydrox/Simethicone (Aluminum/Magnesium Susp 30 Ml Udc) 15 ml PO Q4H PRN PRN Reason: Dyspepsia Stop: 05/28/21 14:53 Albuterol (Albuterol Hfa 8 Gm Inhaler) 2 puffs INH Q4 PRN PRN Reason: sob,cough or wheeze Stop: 05/28/21 14:53 Last Admin: 05/02/21 19:47 Dose: 2 puffs Documented by: Amlodipine Besylate (Amlodipine Besylate 5 Mg Tab) 5 mg PO HS XUAN Stop: 05/28/21 20:59 Last Admin: 05/04/21 20:46 Dose: 5 mg Documented by: Aspirin (Aspirin 81 Mg Ectab) 81 mg PO QAM [facility] Stop: 05/29/21 08:59 Last Admin: 05/04/21 08:45 Dose: 81 mg Documented by: Atorvastatin Calcium (Atorvastatin 40 Mg Tab) 40 mg PO HS XUAN Stop: 05/28/21 20:59 Last Admin: 05/04/21 20:46 Dose: 40 mg Documented by: Budesonide/Formoterol Fumarate (Budesonide/Formoterol Fumarate 80/4.5 60 Puffs/Inhaler) 2 puffs INH BID XUAN Stop: 06/01/21 22:59 Last Admin: 05/04/21 20:48 Dose: 2 puffs Documented by: Dextrose (Dextrose 50% 50 Ml Syringe) 25 - 50 ml IV UD PRN; Protocol PRN Reason: Hypoglycemia Protocol Stop: 05/28/21 14:53 Fenofibrate (Fenofibrate Nanocrystallized 48 Mg Tablet) 48 mg PO DAILY XUAN Stop: 05/29/21 08:59 Last Admin: 05/04/21 09:33 Dose: 48 mg Documented by: Finasteride (Finasteride 5 Mg Tab) 5 mg PO QAM [facility] Stop: 05/29/21 08:59 Last Admin: 05/04/21 08:45 Dose: 5 mg Documented by: Fish Oil ([place]-3 (Purified Fish Oil) 1 Gm Cap) 1 gm PO QAM [facility] Stop: 05/29/21 08:59 Last Admin: 05/04/21 08:46 Dose: 1 gm Documented by: Furosemide (Furosemide 40 Mg/4 Ml Vial) 40 mg IV DAILY [facility] Stop: 06/04/21 08:59 Glucagon (Glucagon For Inj 1 Mg Vial) 1 mg SQ UD PRN; Protocol PRN Reason: Hypoglycemia Protocol Stop: 05/28/21 14:53 Glucose (Glucose 10 Tabs/Tube) 4 - 8 tabs PO UD PRN; Protocol PRN Reason: Hypoglycemia Protocol Stop: 05/28/21 14:53 Glucose (Glucose 40% Gel 15 Gm Tube) 15 - 30 gm PO UD PRN; Protocol PRN Reason: Hypoglycemia Protocol Stop: 05/28/21 14:53 Heparin Sodium (Porcine) (Heparin Sod 5,000 Unit/0.5 Ml Vial) 7,500 units SQ Q8 XUAN Stop: 05/29/21 21:59 Last Admin: 05/05/21 06:06 Dose: 7,500 units Documented by: Hydralazine HCl (Hydralazine Hcl 25 Mg Tab) 25 mg PO Q6H [facility] Stop: 06/02/21 10:14 Last Admin: 05/05/21 04:07 Dose: Not Given Documented by: Dexamethasone 20 mg/ Dextrose 30 mls @ 60 mls/hr IV DAILY [facility] Stop: 05/07/21 09:29 Last Admin: 05/04/21 08:44 Dose: 60 mls/hr Documented by: Dexamethasone 10 mg/ Syringe 2.5 mls @ 1 mls/min IV DAILY [facility] Stop: 05/12/21 09:03 Pantoprazole Sodium 40 mg/ (Syringe) 10 mls @ 5 mls/min IV BID [facility] Stop: 06/02/21 08:59 Last Admin: 05/04/21 20:45 Dose: 5 mls/min Documented by: Insulin Aspart (Insulin Aspart Per Unit) 0 units SC ACHS [facility] Stop: 05/28/21 11:29 Last Admin: 05/04/21 20:59 Dose: 14 units Documented by: Insulin Glargine (Insulin Glargine Solostar 100 Units/Ml 3 Ml Pen) 30 units SC DAILY [facility] Stop: 06/02/21 08:59 Insulin Human NPH (Insulin Human Nph) 50 units SC DAILY [facility] Stop: 06/02/21 08:59 Last Admin: 05/04/21 08:47 Dose: 50 units Documented by: Isosorbide Mononitrate (Isosorbide [place] Extended Rel 30 Mg Tabcr) 30 mg PO QAM [facility] Stop: 06/02/21 10:14 Last Admin: 05/04/21 08:45 Dose: 30 mg Documented by: Levothyroxine Sodium (Levothyroxine Sodium 50 Mcg Tablet) 50 mcg PO DAILYBB [facility] Stop: 05/29/21 06:29 Last Admin: 05/05/21 06:06 Dose: 50 mcg Documented by: Magnesium Hydroxide (Magnesium Hydroxide Susp 30 Ml Udc) 30 ml PO Q12H PRN PRN Reason: Constipation Stop: 05/28/21 14:53 Miscellaneous (Carbohydrates For Hypoglycemia ) 15 - 30 gm PO UD PRN PRN Reason: Hypoglycemia Protocol Stop: 05/28/21 14:53 Miscellaneous Information (Pharmacy Glycemic Mgmt Consult) 1 ea N/A UD PRN PRN Reason: Consult Stop: 05/29/21 12:21 Ondansetron HCl (Ondansetron Inj 2 Mg/Ml 2 Ml Vial) 4 mg IV Q6H PRN PRN Reason: Nausea Stop: 05/28/21 14:53 Polyethylene Glycol (Polyethylene (Miralax) 17 Gm Pack) 17 gm PO DAILY PRN PRN Reason: Constipation Stop: 05/28/21 14:53 Tamsulosin HCl (Tamsulosin Hcl 0.4 Mg Cap) 0.4 mg PO [facility] Stop: 05/29/21 08:59 Last Admin: 05/04/21 08:47 Dose: 0.4 mg Documented by: Tramadol HCl (Tramadol Hcl 50 Mg Tablet) 50 mg PO Q8 PRN PRN Reason: Pain Stop: 05/28/21 14:53
[2021-05-05] MEDS: INSULIN HUMAN NPH SC SCH (08:50)
[2021-05-05] MEDS: INSULIN ASPART PER UNIT SC SCH ×4 (08:50→21:34)
[2021-05-05] MEDS: BUDESONIDE/FORMOTEROL FUMARATE 80/4.5 60 PUFFS/INHALER INH SCH ×2 (08:56→19:26)
[2021-05-05] MEDS: dexAMETHasone 20 MG in DEXTROSE 5% 25 ML IV SCH (08:56)
[2021-05-05] MEDS: OMEGA-3 (PURIFIED FISH OIL) 1 GM CAP PO SCH (08:57)
[2021-05-05] MEDS: ISOSORBIDE MONO EXTENDED REL 30 MG TABCR PO SCH (08:57)
[2021-05-05] MEDS: ASPIRIN 81 MG ECTAB PO SCH (08:57)
[2021-05-05] MEDS: FINASTERIDE 5 MG TAB PO SCH (08:57)
[2021-05-05] MEDS: TAMSULOSIN HCL 0.4 MG CAP PO SCH (08:58)
[2021-05-05] MEDS: FENOFIBRATE NANOCRYSTALLIZED 48 MG TABLET PO SCH (08:58)
[2021-05-05] MEDS: PANTOprazole 40 MG in SYRINGE 0 ML IV SCH ×2 (08:59→19:25)
[2021-05-05] MEDS ORDERED: FUROSEMIDE 40 MG/4 ML VIAL IV SCH (09:00)
[2021-05-05] MEDS ORDERED: INSULIN GLARGINE SOLOSTAR 100 UNITS/ML 3 ML PEN SC SCH (09:00)
--- NOTE | 2021-05-05 11:39 | Pulmonology Progress Note ---
Date of Service May 05, 2021 Assessment & Plan (1) ARDS (adult respiratory distress syndrome): (2) Pneumonia due to 2019 novel coronavirus: Plan: Impression: 65-year-old male unvaccinated for Covid now admitted with Covid pneumonitis. He had escalation of his oxygen requirement over the last 24hours. He is currently not in any respiratory distress. He is relatively late in the course of his disease with his respiratory symptoms initiating about 3 to 4 we eks ago. Recommendations: --Acute hypoxic respiratory failure Secondary to multilobar COVID-19 pneumonia COVID-19 PCR positive CRP 11 Procalcitonin 0.13 Continue with O2 supplementation to keep oxygen saturation between 90-92%. Awake proning will be helpful Continue with incentive spirometry Continue with flutter valve. Recommend patient to be kept euvolemic to negative balance On high-dose dexamethasone. With PPI twice daily Patient was greater than 72 hours since admission so does not meet criteria for Tocilizumab. Venous Doppler bilateral lower extremity negative 05/03/2021 --COPD Symbicort at home Continue with same Incruse should be added prior to discharge --ROWDY Continue with CPAP --Prophylaxis VTE: Heparin GI: Protonix Lines: Peripheral Diet: Cardiac renal Plan: In/out: -760, urine output 1350 Patient's creatinine went up LABA We will hold Lasix today. Can resume 40 mg on a daily basis tomorrow The patient still needs high requirement when it comes to high flow. Once CPAP he looks more comfortable He is able to eat right now on his own is not totally dependent on CPAP Continue to monitor. He is still critical and can deteriorate easily which might require intubation in future Pulmonary will continue to follow Please note the above document was generated using voice recognition software. It may contain grammatical, syntax or spelling errors.Any formal questions or concerns about the content, text or information contained within the body of this dictation should be directly addressed to the provider for clarification. Admission and Anticipated Discharge Date Admission Date: April 28, 2021 Subjective Patient seen and examined at bedside. No acute distress. He was on CPAP at the time of examination saturating 93-94% He was breathing in the low 20s while on CPAP Denies any chest pain. He says that he is feeling better compared to yesterday. No headache, no nausea, no vomiting Fair appetite Has been afebrile. Review of Systems Review of Systems: All systems reviewed & are unremarkable except as noted in Subjective Physical Exam Physical Exam: Constitutional: No acute distress HEENT: EOMI, PERRLA Respiratory system: Decreased air entry bilaterally, no wheeze, rhonchi, positive crackles bilateral lower lobes CVS: S1-S2 positive, no murmurs or gallops Abdomen: Soft, nontender, nondistended, positive bowel sounds x4, obese Extremities: +2 pulses bilaterally radialis/ dorsalis pedis, no cyanosis, +1 pitting edema bilateral extremity Neuro: Awake alert oriented x3 Psych: Normal mood and affect G/U: No Noland Skin: no rashes, warm and dry Lymphatic: no cervical or axillary lymphadenopathy Results & Data Results & Data ([facility]) Vital Signs (Past 12 Hours) Vital Signs Temp Pulse Pulse Resp BP BP Pulse Ox 05/05/21 10:17 21 90 05/05/21 08:46 36.5 C 88 24 120/67 90 05/05/21 08:22 77 20 90 05/05/21 07:25 82 05/05/21 03:54 36.8 C 80 20 120/67 96 05/05/21 00:00 68 05/05/21 06:31 05/05/21 06:31 PG Care Time/CCT Total # of Minutes Spent Total Time Spent with Patient: Total time spent is greater than 50% in coordination of care (as documented) at patient's floor/unit and/or counseling patient: Coding Level of Care Code 19929 Subseq Hosp Care Lvl 3 Diagnoses ARDS (adult respiratory distress syndrome) J80 Pneumonia due to 2019 novel coronavirus U07.1; J12.82
--- NOTE | 2021-05-05 12:12 | Pharmacy Report ---
Pharmacy Glycemic Short Note 2 - Date of Service May 05, 2021 - Glycemic Short BSG Results (Last 24 hours): 05/04/21 05/04/21 05/04/21 15:18 17:17 20:22 Glucose POC Glucose 392 H* 265 H 252 H 05/05/21 05/05/21 05/05/21 02:06 06:31 07:47 Glucose 75 POC Glucose 76 81 05/05/21 11:45 Glucose POC Glucose 184 H OUTPATIENT ANTIDIABETIC REGIMEN: * Trulicity SQ on Fridays * Amaryl 4mg PO QAM * Pioglitzaone 30mg PO QAM * A1c = 10.3% on 04/29/21 ASSESSMENT: 05/05 * Stressors stable * AM fasting BSG with notable decrease from HS to this AM (252 - 76 - 81 mg/dL). Etiology of decrease likely predominantly overcorrection of BSG at bedtime after correction factor tightened with dinner. Lantus could also be contributing. Will loosen Novolog correction back to previous and will decrease Lantus slightly. * CHO ratio significantly tightened at lunch then again at dinner yesterday. Pre-lunch BSG still slightly elevated at 184 mg/dL. May need further tightening but will defer until trend is apparent 05/04 * Stressors stable - dexamethasone 20 mg day 2 of 5 * AM fasting BSG with trend up, but regimen was just adjusted yesterday. Will keep for now and potentially adjust tomorrow if trend continues * Post-prandial BSG's all >180 mg/dL yesterday and was >300 mg/dL prior to lunch today. Will give one-time IV bolus and tighten CHO ratio 05/03 * Pt has received 222 units of insulin over the past 24hrs * 60 units of basal with Lantus * 40 units of NPH for steroid induced hyperglycemia * 122 units of bolus with NovoLog * BSGs finally starting to trend downwards last night and into this morning. Have made significant dose increases over the past 5 days and insulin now at steady state. * AM fasting BSG trending downwards significantly therefore will lower Lantus dosing. * BSGs still elevated d/t dexamethasone and dose just increased to 20mg IV. Will increase NPH. * Empirically loosen CF/CR, aiming for a total of ~ 200 units of insulin today PLAN FOR INPATIENT GLYCEMIC CONTROL: * Hold outpatient diabetes medications * Basal insulin * Lantus to 30 units SQ daily in AM * NPH 50 units SQ daily with dexamethasone * Bolus insulin: Loosen CF/CR * NovoLog per scale ACHS or Q6hrs while NPO * Goal Range: Low 110 mg/dL - High 140 mg/dL * Correction Factor: 10 mg/dL/unit * Nutritional / Prandial insulin per carb ratio of 1 unit per 1.5 grams CHO consumed PLAN FOR DISCHARGE: * TBD, but patient will likely require insulin at dc based on A1c > 10%
[2021-05-05] MEDS: amLODIPine BESYLATE 5 MG TAB PO SCH (19:25)
[2021-05-05] MEDS: ATORVASTATIN 40 MG TAB PO SCH (19:26)
[2021-05-05] MEDS: ACETAMINOPHEN 325 MG TAB PO PRN (19:30)
[2021-05-05] MEDS: DOCUSATE SODIUM 100 MG CAP PO SCH (21:08)
[2021-05-06] MEDS: hydrALAZINE HCL 25 MG TAB PO SCH ×4 (04:01→22:15)
[2021-05-06] MEDS: HEPARIN SOD 5,000 UNIT/0.5 ML VIAL SQ SCH ×3 (06:25→20:26)
[2021-05-06] MEDS: LEVOTHYROXINE SODIUM 50 MCG TABLET PO SCH (06:49)
[2021-05-06 07:24] LABS: Hematocrit (blood only) 40.6 % (42-52); Hemoglobin 14.3 g/dL (14.0-18.0); Mean Corpuscular Hemoglobin 31.5 pg (25-34); Mean Corpuscular Hgb Conc 35.2 g/dL (32-36); Mean Corpuscular Volume 89.4 fL (80-100); Platelet Count 364 K/uL (130-400); RDW Coefficient of Variation 12.8 % (11.5-14.5); RDW Standard Deviation 41.7 fL (36.4-46.3); Red Blood Count 4.54 M/uL (4.7-6.1); White Blood Count 10.73 K/uL (4.8-10.8)
[2021-05-06 08:06] LABS: Albumin Level 2.4 gm/dl (3.4-5.0); BUN Creatinine Ratio 41.9 (10-20); Calcium 8.9 mg/dl (8.5-10.1); Creatinine Clr Calc Pharmacy 58.6 ml/min; Est GFR (African American) 47.6 ml/min; Est GFR (Non-African American) 41.1 ml/min; Magnesium 2.5 mg/dl (1.8-2.4)
[2021-05-06 08:13] LABS: Albumin Globulin Ratio 0.6 (0.9-2); Bilirubin,Total 0.6 mg/dl (0.2-1); Globulin 3.9 gm/dl (2.5-4.0); Phosphorus 3.9 mg/dl (2.5-4.9); Total Protein 6.3 gm/dl (6.4-8.2)
[2021-05-06] MEDS: INSULIN ASPART PER UNIT SC SCH ×5 (08:37→20:52)
[2021-05-06] MEDS: INSULIN HUMAN NPH SC SCH (08:39)
[2021-05-06] MEDS: dexAMETHasone 20 MG in DEXTROSE 5% 25 ML IV SCH (08:57)
[2021-05-06] MEDS ORDERED: INSULIN GLARGINE SOLOSTAR 100 UNITS/ML 3 ML PEN SC SCH (09:00)
[2021-05-06] MEDS: OMEGA-3 (PURIFIED FISH OIL) 1 GM CAP PO SCH (09:01)
[2021-05-06] MEDS: BUDESONIDE/FORMOTEROL FUMARATE 80/4.5 60 PUFFS/INHALER INH SCH ×2 (09:02→20:26)
[2021-05-06] MEDS: ASPIRIN 81 MG ECTAB PO SCH (09:03)
[2021-05-06] MEDS: TAMSULOSIN HCL 0.4 MG CAP PO SCH (09:03)
[2021-05-06] MEDS: ISOSORBIDE MONO EXTENDED REL 30 MG TABCR PO SCH (09:03)
[2021-05-06] MEDS: FINASTERIDE 5 MG TAB PO SCH (09:04)
[2021-05-06] MEDS: DOCUSATE SODIUM 100 MG CAP PO SCH ×2 (09:04→20:25)
[2021-05-06] MEDS: FENOFIBRATE NANOCRYSTALLIZED 48 MG TABLET PO SCH (09:04)
[2021-05-06] MEDS: PANTOprazole 40 MG in SYRINGE 0 ML IV SCH ×2 (09:08→20:25)
--- NOTE | 2021-05-06 12:09 | Hospitalist Progress Note ---
Date of Service May 06, 2021 Assessment & Plan (1) Acute respiratory failure: Plan: 2/2 covid pneumonia (2) Pneumonia due to 2019 novel coronavirus: Plan: Tested positive for SARS COV2 - 04/26/21. Sx have been ongoing and worsening for ~ 3 weeks. aggressive pulmonary toilet with duonebs, ISP, Flutter valve, self proning- declines to prone Does not meet criteria for remdesivir given duration of sx Has been receiving IV dexamethsone CRP initially improving, but now up at 11 Continue supplemental oxygen-high flow nasal cannula plus or minus BiPAP Evaluated by ICU on 05/02 for possible intubation as patient states he is getting tired. No indication yet for intubation per ICU team. Pt moved to ICU capable room for closer monitoring. Pulmonary/ ICU following Clinically pt is improving/ stable, alternates Hi Flow and CPAP Resume lasix PER CONVERSATION WITH HIM ON 04/30, HE IS A FULL CODE AND OK WITH TRACH IF IT EVER CAME TO THAT. (3) Sepsis: Plan: Secondary to COVID-19 virus infection Pt met Sepsis criteria 2/2 tachycardia and fever in setting of known covid-19 infection. Blood and urine cultures negative to date (4) Accelerated essential hypertension: Plan: Patient was on amlodipine, lisinopril and torsemide at home. Norvasc was resumed, the lisinopril is still held resumed Imdur and hydralazine IV Lasix per pulmonary monitor blood pressure closely. (5) Elevated troponin: Plan: Likely demand ischemia in setting of acute illness No ST t wave changes, or chest pain (6) Acute renal failure superimposed on stage 3b chronic kidney disease: Plan: Acute on chronic CKD 3 baseline cr 1.7-1.8 follows [facility] nephro avoid nephrotoxic agents, holding lisinopril (7) T2DM (type 2 diabetes mellitus): Plan: glycemic pharmacist in setting of hyperglycemia and dexamethasone use at goal (8) Sleep apnea: Plan: CPAP qHS (9) Chronic obstructive pulmonary disease: Plan: chornic, stable, cont Symbicort. (10) DVT prophylaxis: Plan: Heparin Full code Disposition-continue PCU monitoring with escalating oxygen needs Admission and Anticipated Discharge Date Admission Date: April 28, 2021 Subjective Patient seen in follow up of resp. failure 2/2 covid 19 pna Currently sitting up in bed on cpap Stating feeling well No chest pain, fever, chills. Breathing is better. No abd. pain, n/v Review of Systems Review of Systems: All systems reviewed & are unremarkable except as noted in Subjective Physical Exam Physical Exam: Gen- AAO x 3, NAD, obese M, currently on cpap Head- NCAT, EOMI, PERRL Neck-Supple Lungs- decreased breath sounds, No Wheezing Chest- +S1, +S2, No Murmurs Abdomen-Soft, Bowel Sounds Present, obese, Non Tender, Non Distended, No Guarding Musculoskeletal-Full Range of Motion Bilaterally, No CVAT Extremities-No Cyanosis, No Clubbing, No Edema Neuro- awake and alert, answering questions appropriately, speech fluent, moves extremities Psych-Normal Mood Results & Data Results & Data ([facility]) Vital Signs (Past 12 Hours) Vital Signs Temp Pulse Resp BP Pulse Ox 05/06/21 11:38 80 18 96 05/06/21 10:29 102 H 20 150/81 H 94 05/06/21 07:23 86 18 91 05/06/21 07:20 36.8 C 77 18 163/93 H 99 05/06/21 03:57 36 C L 75 22 159/85 H 99 Laboratory Results 05/06/21 05/06/21 05/06/21 Range/Units 16:01 11:29 07:26 WBC (4.8-10.8) K/uL RBC (4.7-6.1) M/uL Hgb (14.0-18.0) g/dL Hct (42-52) % MCV (80-100) fL MCH (25-34) pg MCHC (32-36) g/dL RDW Std Deviation (36.4-46.3) fL RDW Coeff of Racquel (11.5-14.5) % Plt Count (130-400) K/uL MPV (7.4-10.4) fL Sodium (136-145) mmol/L Potassium (3.5-5.1) mmol/L Chloride (98-107) mmol/L Carbon Dioxide (21-32) mmol/L Anion Gap (3-11) BUN (7-18) mg/dl Creatinine (0.6-1.4) mg/dl Est Cr Clr Drug Dosing ml/min Est GFR ( Amer) ml/min Est GFR (Non-Af Amer) ml/min BUN/Creatinine Ratio (10-20) Glucose (70-99) mg/dl POC Glucose 145 H 186 H 76 (70-99) mg/dl Calcium (8.5-10.1) mg/dl Phosphorus (2.5-4.9) mg/dl Magnesium (1.8-2.4) mg/dl Total Bilirubin (0.2-1) mg/dl AST (15-37) U/L ALT (12-78) Alkaline Phosphatase (45-117) U/L Total Protein (6.4-8.2) gm/dl Albumin (3.4-5.0) gm/dl Globulin (2.5-4.0) gm/dl Albumin/Globulin Ratio (0.9-2) 05/06/21 05/06/21 05/05/21 Range/Units 05:31 05:31 20:19 WBC 10.73 (4.8-10.8) K/uL RBC 4.54 L (4.7-6.1) M/uL Hgb 14.3 (14.0-18.0) g/dL Hct 40.6 L (42-52) % MCV 89.4 (80-100) fL MCH 31.5 (25-34) pg MCHC 35.2 (32-36) g/dL RDW Std Deviation 41.7 (36.4-46.3) fL RDW Coeff of Racquel 12.8 (11.5-14.5) % Plt Count 364 (130-400) K/uL MPV 11.0 H (7.4-10.4) fL Sodium 137 (136-145) mmol/L Potassium 4.0 (3.5-5.1) mmol/L Chloride 104 (98-107) mmol/L Carbon Dioxide 27 (21-32) mmol/L Anion Gap 6.0 (3-11) BUN 73 H (7-18) mg/dl Creatinine 1.73 H D (0.6-1.4) mg/dl Est Cr Clr Drug Dosing 58.6 ml/min Est GFR ( Amer) 47.6 ml/min Est GFR (Non-Af Amer) 41.1 ml/min BUN/Creatinine Ratio 41.9 H (10-20) Glucose 56 L (70-99) mg/dl POC Glucose 228 H (70-99) mg/dl Calcium 8.9 (8.5-10.1) mg/dl Phosphorus 3.9 (2.5-4.9) mg/dl Magnesium 2.5 H (1.8-2.4) mg/dl Total Bilirubin 0.6 (0.2-1) mg/dl AST 19 (15-37) U/L ALT 47 (12-78) Alkaline Phosphatase 32 L (45-117) U/L Total Protein 6.3 L (6.4-8.2) gm/dl Albumin 2.4 L (3.4-5.0) gm/dl Globulin 3.9 (2.5-4.0) gm/dl Albumin/Globulin Ratio 0.6 L (0.9-2) Medications Administered Current Inpatient Medications Acetaminophen (Acetaminophen 325 Mg Tab) 650 mg PO Q4H PRN PRN Reason: Pain or Fever Stop: 05/28/21 14:53 Last Admin: 05/05/21 19:30 Dose: 650 mg Documented by: Al Hydrox/Mg Hydrox/Simethicone (Aluminum/Magnesium Susp 30 Ml Udc) 15 ml PO Q4H PRN PRN Reason: Dyspepsia Stop: 05/28/21 14:53 Albuterol (Albuterol Hfa 8 Gm Inhaler) 2 puffs INH Q4 PRN PRN Reason: sob,cough or wheeze Stop: 05/28/21 14:53 Last Admin: 05/02/21 19:47 Dose: 2 puffs Documented by: Amlodipine Besylate (Amlodipine Besylate 5 Mg Tab) 5 mg PO [facility] Stop: 05/28/21 20:59 Last Admin: 05/05/21 19:25 Dose: 5 mg Documented by: Aspirin (Aspirin 81 Mg Ectab) 81 mg PO [facility] Stop: 05/29/21 08:59 Last Admin: 05/06/21 09:03 Dose: 81 mg Documented by: Atorvastatin Calcium (Atorvastatin 40 Mg Tab) 40 mg PO [facility] Stop: 05/28/21 20:59 Last Admin: 05/05/21 19:26 Dose: 40 mg Documented by: Budesonide/Formoterol Fumarate (Budesonide/Formoterol Fumarate 80/4.5 60 Puffs/Inhaler) 2 puffs INH BID [facility] Stop: 06/01/21 22:59 Last Admin: 05/06/21 09:02 Dose: 2 puffs Documented by: Dextrose (Dextrose 50% 50 Ml Syringe) 25 - 50 ml IV UD PRN; Protocol PRN Reason: Hypoglycemia Protocol Stop: 05/28/21 14:53 Docusate Sodium (Docusate Sodium 100 Mg Cap) 100 mg PO BID [facility] Stop: 06/04/21 20:59 Last Admin: 05/06/21 09:04 Dose: 100 mg Documented by: Fenofibrate (Fenofibrate Nanocrystallized 48 Mg Tablet) 48 mg PO DAILY [facility] Stop: 05/29/21 08:59 Last Admin: 05/06/21 09:04 Dose: 48 mg Documented by: Finasteride (Finasteride 5 Mg Tab) 5 mg PO QAM [facility] Stop: 05/29/21 08:59 Last Admin: 05/06/21 09:04 Dose: 5 mg Documented by: Fish Oil (Verplanck-3 (Purified Fish Oil) 1 Gm Cap) 1 gm PO QAM [facility] Stop: 05/29/21 08:59 Last Admin: 05/06/21 09:01 Dose: 1 gm Documented by: Furosemide (Furosemide 40 Mg/4 Ml Vial) 40 mg IV DAILY [facility] Stop: 06/04/21 08:59 Glucagon (Glucagon For Inj 1 Mg Vial) 1 mg SQ UD PRN; Protocol PRN Reason: Hypoglycemia Protocol Stop: 05/28/21 14:53 Glucose (Glucose 10 Tabs/Tube) 4 - 8 tabs PO UD PRN; Protocol PRN Reason: Hypoglycemia Protocol Stop: 05/28/21 14:53 Glucose (Glucose 40% Gel 15 Gm Tube) 15 - 30 gm PO UD PRN; Protocol PRN Reason: Hypoglycemia Protocol Stop: 05/28/21 14:53 Heparin Sodium (Porcine) (Heparin Sod 5,000 Unit/0.5 Ml Vial) 7,500 units SQ Q8 [facility] Stop: 05/29/21 21:59 Last Admin: 05/06/21 06:25 Dose: 7,500 units Documented by: Hydralazine HCl (Hydralazine Hcl 25 Mg Tab) 25 mg PO Q6H [facility] Stop: 06/02/21 10:14 Last Admin: 05/06/21 10:27 Dose: 25 mg Documented by: Dexamethasone 20 mg/ Dextrose 30 mls @ 60 mls/hr IV DAILY [facility] Stop: 05/07/21 09:29 Last Admin: 05/06/21 08:57 Dose: 60 mls/hr Documented by: Dexamethasone 10 mg/ Syringe 2.5 mls @ 1 mls/min IV DAILY [facility] Stop: 05/12/21 09:03 Pantoprazole Sodium 40 mg/ (Syringe) 10 mls @ 5 mls/min IV BID [facility] Stop: 06/02/21 08:59 Last Admin: 05/06/21 09:08 Dose: 5 mls/min Documented by: Insulin Aspart (Insulin Aspart Per Unit) 0 units SC ACHS [facility] Stop: 05/28/21 11:29 Last Admin: 05/06/21 08:37 Dose: 45 units Documented by: Insulin Glargine (Insulin Glargine Solostar 100 Units/Ml 3 Ml Pen) 15 units SC DAILY [facility] Stop: 06/05/21 08:59 Last Admin: 05/06/21 08:39 Dose: 15 units Documented by: Insulin Human NPH (Insulin Human Nph) 50 units SC DAILY [facility] Stop: 06/02/21 08:59 Last Admin: 05/06/21 08:39 Dose: 50 units Documented by: Isosorbide Mononitrate (Isosorbide Linn Extended Rel 30 Mg Tabcr) 30 mg PO QAM [facility] Stop: 06/02/21 10:14 Last Admin: 05/06/21 09:03 Dose: 30 mg Documented by: Levothyroxine Sodium (Levothyroxine Sodium 50 Mcg Tablet) 50 mcg PO DAILYBB [facility] Stop: 05/29/21 06:29 Last Admin: 05/06/21 06:49 Dose: 50 mcg Documented by: Magnesium Hydroxide (Magnesium Hydroxide Susp 30 Ml Udc) 30 ml PO Q12H PRN PRN Reason: Constipation Stop: 05/28/21 14:53 Miscellaneous (Carbohydrates For Hypoglycemia ) 15 - 30 gm PO UD PRN PRN Reason: Hypoglycemia Protocol Stop: 05/28/21 14:53 Miscellaneous Information (Pharmacy Glycemic Mgmt Consult) 1 ea N/A UD PRN PRN Reason: Consult Stop: 05/29/21 12:21 Ondansetron HCl (Ondansetron Inj 2 Mg/Ml 2 Ml Vial) 4 mg IV Q6H PRN PRN Reason: Nausea Stop: 05/28/21 14:53 Polyethylene Glycol (Polyethylene (Miralax) 17 Gm Pack) 17 gm PO DAILY PRN PRN Reason: Constipation Stop: 05/28/21 14:53 Tamsulosin HCl (Tamsulosin Hcl 0.4 Mg Cap) 0.4 mg PO QAM [facility] Stop: 05/29/21 08:59 Last Admin: 05/06/21 09:03 Dose: 0.4 mg Documented by: Tramadol HCl (Tramadol Hcl 50 Mg Tablet) 50 mg PO Q8 PRN PRN Reason: Pain Stop: 05/28/21 14:53
--- NOTE | 2021-05-06 12:18 | Pharmacy Report ---
Pharmacy Glycemic Short Note 2 - Date of Service May 06, 2021 - Glycemic Short BSG Results (Last 24 hours): 05/05/21 05/05/21 05/06/21 16:20 20:19 05:31 Glucose 56 L POC Glucose 206 H 228 H 05/06/21 05/06/21 07:26 11:29 Glucose POC Glucose 76 186 H OUTPATIENT ANTIDIABETIC REGIMEN: * Trulicity SQ on Fridays * Amaryl 4mg PO QAM * Pioglitzaone 30mg PO QAM * A1c = 10.3% on 04/29/21 ASSESSMENT: 05/06 * Patient remains on Dexamethasone 20mg IV daily today and tomorrow, then scheduled to decrease to 10mg on 05/08. * Blood sugars still rising throughout the day and dropping overnight, will decrease Lantus and tighten CR with meals, also loosen CF/CR at HS to prevent AM hypoglycemia. 05/05 * Stressors stable * AM fasting BSG with notable decrease from HS to this AM (252 - 76 - 81 mg/dL). Etiology of decrease likely predominantly overcorrection of BSG at bedtime after correction factor tightened with dinner. Lantus could also be contributing. Will loosen Novolog correction back to previous and will decrease Lantus slightly. * CHO ratio significantly tightened at lunch then again at dinner yesterday. Pre-lunch BSG still slightly elevated at 184 mg/dL. May need further tigh tening but will defer until trend is apparent 05/04 * Stressors stable - dexamethasone 20 mg day 2 of 5 * AM fasting BSG with trend up, but regimen was just adjusted yesterday. Will keep for now and potentially adjust tomorrow if trend continues * Post-prandial BSG's all >180 mg/dL yesterday and was >300 mg/dL prior to lunch today. Will give one-time IV bolus and tighten CHO ratio 05/03 * Pt has received 222 units of insulin over the past 24hrs * 60 units of basal with Lantus * 40 units of NPH for steroid induced hyperglycemia * 122 units of bolus with NovoLog * BSGs finally starting to trend downwards last night and into this morning. Have made significant dose increases over the past 5 days and insulin now at steady state. * AM fasting BSG trending downwards significantly therefore will lower Lantus dosing. * BSGs still elevated d/t dexamethasone and dose just increased to 20mg IV. Will increase NPH. * Empirically loosen CF/CR, aiming for a total of ~ 200 units of insulin today PLAN FOR INPATIENT GLYCEMIC CONTROL: * Hold outpatient diabetes medications * Basal insulin * DECREASE: Lantus to 15 units SQ daily in AM * NPH 50 units SQ daily with dexamethasone * Bolus insulin: tighten CR AC, loosen CF/CR HS * NovoLog per scale ACHS or Q6hrs while NPO * Goal Range: Low 110 mg/dL - High 140 mg/dL * Correction Factor: 10 mg/dL/unit with meals (20mg/dL/unit HS) * Nutritional / Prandial insulin per carb ratio of 1 unit per 1 grams CHO consumed with meals (1 unit per 10 grams CHO consumed HS) PLAN FOR DISCHARGE: * TBD, but patient will likely require insulin at dc based on A1c > 10%
[2021-05-06] MEDS ORDERED: INSULIN ASPART PER UNIT SC SCH ×2 (16:30)
--- NOTE | 2021-05-06 18:39 | Pulmonology Progress Note ---
Date of Service May 06, 2021 Assessment & Plan (1) ARDS (adult respiratory distress syndrome): (2) Pneumonia due to 2019 novel coronavirus: Plan: Impression: 65-year-old male unvaccinated for Covid now admitted with Covid pneumonitis. He had escalation of his oxygen requirement over the last 24hours. He is currently not in any respiratory distress. He is relatively late in the course of his disease with his respiratory symptoms initiating about 3 to 4 we eks ago. Recommendations: --Acute hypoxic respiratory failure Secondary to multilobar COVID-19 pneumonia COVID-19 PCR positive CRP 11 Procalcitonin 0.13 Continue with O2 supplementation to keep oxygen saturation between 90-92%. Awake proning will be helpful Continue with incentive spirometry Continue with flutter valve. Recommend patient to be kept euvolemic to negative balance On high-dose dexamethasone. With PPI twice daily Patient was greater than 72 hours since admission so does not meet criteria for Tocilizumab. Venous Doppler bilateral lower extremity negative 05/03/2021 --COPD Symbicort at home Continue with same Incruse should be added prior to discharge --ROWDY Continue with CPAP --Prophylaxis VTE: Heparin GI: Protonix Lines: Peripheral Diet: Cardiac renal Plan: Patient's requirement for oxygen has stabilized Continue to alternate between high flow and CPAP Patient does have severe Covid and he will require oxygen for significant long time Continue with the same regimen Pulmonary will sign off. Please call directly with any questions Please note the above document was generated using voice recognition software. It may contain grammatical, syntax or spelling errors.Any formal questions or concerns about the content, text or information contained within the body of this dictation should be directly addressed to the provider for clarification. Admission and Anticipated Discharge Date Admission Date: April 28, 2021 Subjective Patient seen and family bedside. No acute distress, no delusions overnight He was using his CPAP at the time of examination saturating 94% not in any respiratory distress Denied any headache, no nausea, no vomiting He is having fair appetite. Review of Systems Review of Systems: All systems reviewed & are unremarkable except as noted in Subjective Physical Exam Physical Exam: Constitutional: No acute distress HEENT: EOMI, PERRLA Respiratory system: Decreased air entry bilaterally, no wheeze, rhonchi, positive crackles bilateral lower lobes CVS: S1-S2 positive, no murmurs or gallops Abdomen: Soft, nontender, nondistended, positive bowel sounds x4, obese Extremities: +2 pulses bilaterally radialis/ dorsalis pedis, no cyanosis, +1 pitting edema bilateral extremity Neuro: Awake alert oriented x3 Psych: Normal mood and affect G/U: No Noland Skin: no rashes, warm and dry Lymphatic: no cervical or axillary lymphadenopathy Results & Data Results & Data ([facility]) Vital Signs (Past 12 Hours) Vital Signs Temp Pulse Pulse Resp BP BP Pulse Ox 05/06/21 18:00 05/06/21 17:04 97 05/06/21 16:00 68 05/06/21 15:14 36.7 C 87 18 157/80 H 98 05/06/21 14:34 80 18 98 05/06/21 11:38 80 18 96 05/06/21 10:29 102 H 20 150/81 H 94 05/06/21 08:00 76 05/06/21 07:23 86 18 91 05/06/21 07:20 36.8 C 77 18 163/93 H 99 Pulse Ox 05/06/21 18:00 94 05/06/21 17:04 05/06/21 16:00 05/06/21 15:14 05/06/21 14:34 05/06/21 11:38 05/06/21 10:29 05/06/21 08:00 05/06/21 07:23 05/06/21 07:20 Laboratory Results 05/06/21 05:31 05/06/21 05:31 PG Care Time/CCT Total # of Minutes Spent Total Time Spent with Patient: Total time spent is greater than 50% in coordination of care (as documented) at patient's floor/unit and/or counseling patient: Coding Level of Care Code 39850 Subseq Hosp Care Lvl 2 Diagnoses ARDS (adult respiratory distress syndrome) J80 Pneumonia due to 2019 novel coronavirus U07.1; J12.82
[2021-05-06] MEDS: ATORVASTATIN 40 MG TAB PO SCH (20:25)
[2021-05-06] MEDS: amLODIPine BESYLATE 5 MG TAB PO SCH (20:25)
[2021-05-07] MEDS: hydrALAZINE HCL 25 MG TAB PO SCH ×5 (04:34→22:01)
[2021-05-07] MEDS: HEPARIN SOD 5,000 UNIT/0.5 ML VIAL SQ SCH ×3 (05:41→22:04)
[2021-05-07] MEDS: LEVOTHYROXINE SODIUM 50 MCG TABLET PO SCH (05:41)
[2021-05-07 06:10] LABS: Hematocrit (blood only) 39.8 % (42-52); Hemoglobin 14.2 g/dL (14.0-18.0); Mean Corpuscular Hemoglobin 31.8 pg (25-34); Mean Corpuscular Hgb Conc 35.7 g/dL (32-36); Mean Corpuscular Volume 89.2 fL (80-100); Mean Platelet Volume 10.6 fL (7.4-10.4); Nucleated RBC # (auto) 0.03 K/uL (0-0); Nucleated RBC % (auto) 0.2 %; Platelet Count 363 K/uL (130-400); RDW Standard Deviation 42.4 fL (36.4-46.3); Red Blood Count 4.46 M/uL (4.7-6.1); White Blood Count 14.73 K/uL (4.8-10.8)
[2021-05-07 06:42] LABS: Calcium 8.5 mg/dl (8.5-10.1); Creatinine Clr Calc Pharmacy 60.3 ml/min; Est GFR (Non-African American) 42.3 ml/min; Magnesium 2.5 mg/dl (1.8-2.4); Potassium 4.1 mmol/L (3.5-5.1)
[2021-05-07 06:44] LABS: Phosphorus 3.1 mg/dl (2.5-4.9)
--- NOTE | 2021-05-07 08:38 | Hospitalist Progress Note ---
Date of Service May 07, 2021 Assessment & Plan (1) Acute respiratory failure: Plan: 2/2 covid pneumonia (2) Pneumonia due to 2019 novel coronavirus: Plan: Tested positive for SARS COV2 - 04/26/21. Sx have been ongoing and worsening for ~ 3 weeks. aggressive pulmonary toilet with duonebs, ISP, Flutter valve, self proning- declines to prone Does not meet criteria for remdesivir given duration of sx Has been receiving IV dexamethsone CRP initially improving, but now up at 11 Continue supplemental oxygen-high flow nasal cannula plus or minus BiPAP Evaluated by ICU on 05/02 for possible intubation as patient states he is getting tired. No indication yet for intubation per ICU team. Pt moved to ICU capable room for closer monitoring. Pulmonary/ ICU following Clinically pt is improving/ stable, alternates Hi Flow and CPAP Resume lasix PER CONVERSATION WITH HIM ON 04/30, HE IS A FULL CODE AND OK WITH TRACH IF IT EVER CAME TO THAT. (3) Sepsis: Plan: Secondary to COVID-19 virus infection Pt met Sepsis criteria 2/2 tachycardia and fever in setting of known covid-19 infection. Blood and urine cultures negative to date (4) Accelerated essential hypertension: Plan: Patient was on amlodipine, lisinopril and torsemide at home. Norvasc was resumed, the lisinopril is still held resumed Imdur and hydralazine IV Lasix per pulmonary monitor blood pressure closely. (5) Elevated troponin: Plan: Likely demand ischemia in setting of acute illness No ST t wave changes, or chest pain (6) Acute renal failure superimposed on stage 3b chronic kidney disease: Plan: Acute on chronic CKD 3 baseline cr 1.7-1.8 [place] [facility] [place] avoid nephrotoxic agents, holding lisinopril (7) T2DM (type 2 diabetes mellitus): Plan: glycemic pharmacist in setting of hyperglycemia and dexamethasone use at goal (8) Sleep apnea: Plan: CPAP qHS (9) Chronic obstructive pulmonary disease: Plan: chornic, stable, cont Symbicort. (10) DVT prophylaxis: Plan: Heparin Full code Disposition-continue PCU monitoring with escalating oxygen needs Admission and Anticipated Discharge Date Admission Date: April 28, 2021 Subjective Patient seen in follow up of resp. failure 2/2 covid 19 pna Currently laying on his side, on cpap Stating feeling well No chest pain, fever, chills. Breathing is better. No abd. pain, n/v Review of Systems Review of Systems: All systems reviewed & are unremarkable except as noted in Subjective Physical Exam Physical Exam: Gen- AAO x 3, NAD, obese M, currently on cpap Head- NCAT, EOMI, PERRL Neck-Supple Lungs- decreased breath sounds (mildly improved from prev. exam), No Wheezing Chest- +S1, +S2, No Murmurs Abdomen-Soft, Bowel Sounds Present, obese, Non Tender, Non Distended, No Guarding Musculoskeletal-Full Range of Motion Bilaterally, No CVAT Extremities-No Cyanosis, No Clubbing, No Edema Neuro- awake and alert, answering questions appropriately, speech fluent, moves extremities Psych-Normal Mood Results & Data Results & Data ([facility]) Vital Signs (Past 12 Hours) Vital Signs Temp Pulse Pulse Resp BP BP Pulse Ox 05/07/21 08:21 83 23 91 05/07/21 07:20 36.5 C 88 16 127/79 94 05/07/21 04:32 136/69 05/07/21 03:32 36.6 C 73 19 128/79 92 05/06/21 23:39 82 05/06/21 23:12 36.8 C 83 19 126/73 93 05/06/21 22:14 75 148/82 H Laboratory Results 05/07/21 05/07/21 05/07/21 Range/Units 07:19 05:18 05:18 WBC 14.73 H (4.8-10.8) K/uL RBC 4.46 L (4.7-6.1) M/uL Hgb 14.2 (14.0-18.0) g/dL Hct 39.8 L (42-52) % MCV 89.2 (80-100) fL MCH 31.8 (25-34) pg MCHC 35.7 (32-36) g/dL RDW Std Deviation 42.4 (36.4-46.3) fL RDW Coeff of Racquel 13.0 (11.5-14.5) % Plt Count 363 (130-400) K/uL MPV 10.6 H (7.4-10.4) fL Absolute Nucleated RBC 0.03 H (0-0) K/uL Nucleated RBC % (auto) 0.2 % Sodium 136 (136-145) mmol/L Potassium 4.1 (3.5-5.1) mmol/L Chloride 105 (98-107) mmol/L Carbon Dioxide 25 (21-32) mmol/L Anion Gap 7.0 (3-11) BUN 63 H (7-18) mg/dl Creatinine 1.69 H (0.6-1.4) mg/dl Est Cr Clr Drug Dosing 60.3 ml/min Est GFR ( Amer) 49.0 ml/min Est GFR (Non-Af Amer) 42.3 ml/min BUN/Creatinine Ratio 37.0 H (10-20) Glucose 67 L (70-99) mg/dl POC Glucose 75 (70-99) mg/dl Calcium 8.5 (8.5-10.1) mg/dl Phosphorus 3.1 (2.5-4.9) mg/dl Magnesium 2.5 H (1.8-2.4) mg/dl 05/06/21 05/06/21 05/06/21 Range/Units 21:05 20:44 20:42 WBC (4.8-10.8) K/uL RBC (4.7-6.1) M/uL Hgb (14.0-18.0) g/dL Hct (42-52) % MCV (80-100) fL MCH (25-34) pg MCHC (32-36) g/dL RDW Std Deviation (36.4-46.3) fL RDW Coeff of Racquel (11.5-14.5) % Plt Count (130-400) K/uL MPV (7.4-10.4) fL Absolute Nucleated RBC (0-0) K/uL Nucleated RBC % (auto) % Sodium (136-145) mmol/L Potassium (3.5-5.1) mmol/L Chloride (98-107) mmol/L Carbon Dioxide (21-32) mmol/L Anion Gap (3-11) BUN (7-18) mg/dl Creatinine (0.6-1.4) mg/dl Est Cr Clr Drug Dosing ml/min Est GFR ( Amer) ml/min Est GFR (Non-Af Amer) ml/min BUN/Creatinine Ratio (10-20) Glucose (70-99) mg/dl POC Glucose 92 56 L* 54 L* (70-99) mg/dl Calcium (8.5-10.1) mg/dl Phosphorus (2.5-4.9) mg/dl Magnesium (1.8-2.4) mg/dl 05/06/21 05/06/21 Range/Units 16:01 11:29 WBC (4.8-10.8) K/uL RBC (4.7-6.1) M/uL Hgb (14.0-18.0) g/dL Hct (42-52) % MCV (80-100) fL MCH (25-34) pg MCHC (32-36) g/dL RDW Std Deviation (36.4-46.3) fL RDW Coeff of Racquel (11.5-14.5) % Plt Count (130-400) K/uL MPV (7.4-10.4) fL Absolute Nucleated RBC (0-0) K/uL Nucleated RBC % (auto) % Sodium (136-145) mmol/L Potassium (3.5-5.1) mmol/L Chloride (98-107) mmol/L Carbon Dioxide (21-32) mmol/L Anion Gap (3-11) BUN (7-18) mg/dl Creatinine (0.6-1.4) mg/dl Est Cr Clr Drug Dosing ml/min Est GFR ( Amer) ml/min Est GFR (Non-Af Amer) ml/min BUN/Creatinine Ratio (10-20) Glucose (70-99) mg/dl POC Glucose 145 H 186 H (70-99) mg/dl Calcium (8.5-10.1) mg/dl Phosphorus (2.5-4.9) mg/dl Magnesium (1.8-2.4) mg/dl Medications Administered Current Inpatient Medications Acetaminophen (Acetaminophen 325 Mg Tab) 650 mg PO Q4H PRN PRN Reason: Pain or Fever Stop: 05/28/21 14:53 Last Admin: 05/05/21 19:30 Dose: 650 mg Documented by: Al Hydrox/Mg Hydrox/Simethicone (Aluminum/Magnesium Susp 30 Ml Udc) 15 ml PO Q4H PRN PRN Reason: Dyspepsia Stop: 05/28/21 14:53 Albuterol (Albuterol Hfa 8 Gm Inhaler) 2 puffs INH Q4 PRN PRN Reason: sob,cough or wheeze Stop: 05/28/21 14:53 Last Admin: 05/02/21 19:47 Dose: 2 puffs Documented by: Amlodipine Besylate (Amlodipine Besylate 5 Mg Tab) 5 mg PO HS [facility] Stop: 05/28/21 20:59 Last Admin: 05/06/21 20:25 Dose: 5 mg Documented by: Aspirin (Aspirin 81 Mg Ectab) 81 mg PO QAM [facility] Stop: 05/29/21 08:59 Last Admin: 05/06/21 09:03 Dose: 81 mg Documented by: Atorvastatin Calcium (Atorvastatin 40 Mg Tab) 40 mg PO HS [facility] Stop: 05/28/21 20:59 Last Admin: 05/06/21 20:25 Dose: 40 mg Documented by: Budesonide/Formoterol Fumarate (Budesonide/Formoterol Fumarate 80/4.5 60 Puffs/Inhaler) 2 puffs INH BID [facility] Stop: 06/01/21 22:59 Last Admin: 05/06/21 20:26 Dose: 2 puffs Documented by: Dextrose (Dextrose 50% 50 Ml Syringe) 25 - 50 ml IV UD PRN; Protocol PRN Reason: Hypoglycemia Protocol Stop: 05/28/21 14:53 Docusate Sodium (Docusate Sodium 100 Mg Cap) 100 mg PO BID [facility] Stop: 06/04/21 20:59 Last Admin: 05/06/21 20:25 Dose: 100 mg Documented by: Fenofibrate (Fenofibrate Nanocrystallized 48 Mg Tablet) 48 mg PO DAILY [facility] Stop: 05/29/21 08:59 Last Admin: 05/06/21 09:04 Dose: 48 mg Documented by: Finasteride (Finasteride 5 Mg Tab) 5 mg PO QAM [facility] Stop: 05/29/21 08:59 Last Admin: 05/06/21 09:04 Dose: 5 mg Documented by: Fish Oil ([place]-3 (Purified Fish Oil) 1 Gm Cap) 1 gm PO QAM [facility] Stop: 05/29/21 08:59 Last Admin: 05/06/21 09:01 Dose: 1 gm Documented by: Furosemide (Furosemide 40 Mg/4 Ml Vial) 40 mg IV DAILY [facility] Stop: 06/04/21 08:59 Glucagon (Glucagon For Inj 1 Mg Vial) 1 mg SQ UD PRN; Protocol PRN Reason: Hypoglycemia Protocol Stop: 05/28/21 14:53 Glucose (Glucose 10 Tabs/Tube) 4 - 8 tabs PO UD PRN; Protocol PRN Reason: Hypoglycemia Protocol Stop: 05/28/21 14:53 Glucose (Glucose 40% Gel 15 Gm Tube) 15 - 30 gm PO UD PRN; Protocol PRN Reason: Hypoglycemia Protocol Stop: 05/28/21 14:53 Heparin Sodium (Porcine) (Heparin Sod 5,000 Unit/0.5 Ml Vial) 7,500 units SQ Q8 [facility] Stop: 05/29/21 21:59 Last Admin: 05/07/21 05:41 Dose: 7,500 units Documented by: Hydralazine HCl (Hydralazine Hcl 25 Mg Tab) 25 mg PO Q6H [facility] Stop: 06/02/21 10:14 Last Admin: 05/07/21 04:34 Dose: Not Given Documented by: Dexamethasone 20 mg/ Dextrose 30 mls @ 60 mls/hr IV DAILY [facility] Stop: 05/07/21 09:29 Last Admin: 05/06/21 08:57 Dose: 60 mls/hr Documented by: Dexamethasone 10 mg/ Syringe 2.5 mls @ 1 mls/min IV DAILY [facility] Stop: 05/12/21 09:03 Pantoprazole Sodium 40 mg/ (Syringe) 10 mls @ 5 mls/min IV BID [facility] Stop: 06/02/21 08:59 Last Admin: 05/06/21 20:25 Dose: 5 mls/min Documented by: Insulin Aspart (Insulin Aspart Per Unit) 0 units SC HS [facility]; Protocol Stop: 06/05/21 20:59 Last Admin: 05/06/21 20:52 Dose: Not Given Documented by: Insulin Aspart (Insulin Aspart Per Unit) 0 units SC BID@0730,1130 [facility]; Protocol Stop: 06/06/21 07:29 Insulin Aspart (Insulin Aspart Per Unit) 0 units SC DAILY@1630 [facility]; Protocol Stop: 06/06/21 16:29 Insulin Glargine (Insulin Glargine Solostar 100 Units/Ml 3 Ml Pen) 15 units SC DAILY [facility] Stop: 06/05/21 08:59 Last Admin: 05/06/21 08:39 Dose: 15 units Documented by: Insulin Human NPH (Insulin Human Nph) 50 units SC DAILY [facility] Stop: 06/02/21 08:59 Last Admin: 05/06/21 08:39 Dose: 50 units Documented by: Isosorbide Mononitrate (Isosorbide [place] Extended Rel 30 Mg Tabcr) 30 mg PO QAM [facility] Stop: 06/02/21 10:14 Last Admin: 05/06/21 09:03 Dose: 30 mg Documented by: Levothyroxine Sodium (Levothyroxine Sodium 50 Mcg Tablet) 50 mcg PO DAILYBB [facility] Stop: 05/29/21 06:29 Last Admin: 05/07/21 05:41 Dose: 50 mcg Documented by: Magnesium Hydroxide (Magnesium Hydroxide Susp 30 Ml Udc) 30 ml PO Q12H PRN PRN Reason: Constipation Stop: 05/28/21 14:53 Miscellaneous (Carbohydrates For Hypoglycemia ) 15 - 30 gm PO UD PRN PRN Reason: Hypoglycemia Protocol Stop: 05/28/21 14:53 Last Admin: 05/06/21 20:49 Dose: 30 gm Documented by: Miscellaneous Information (Pharmacy Glycemic Mgmt Consult) 1 ea N/A UD PRN PRN Reason: Consult Stop: 05/29/21 12:21 Ondansetron HCl (Ondansetron Inj 2 Mg/Ml 2 Ml Vial) 4 mg IV Q6H PRN PRN Reason: Nausea Stop: 05/28/21 14:53 Polyethylene Glycol (Polyethylene (Miralax) 17 Gm Pack) 17 gm PO DAILY PRN PRN Reason: Constipation Stop: 05/28/21 14:53 Last Admin: 05/06/21 12:19 Dose: 17 gm Documented by: Tamsulosin HCl (Tamsulosin Hcl 0.4 Mg Cap) 0.4 mg PO QAM [facility] Stop: 05/29/21 08:59 Last Admin: 05/06/21 09:03 Dose: 0.4 mg Documented by: Tramadol HCl (Tramadol Hcl 50 Mg Tablet) 50 mg PO Q8 PRN PRN Reason: Pain Stop: 05/28/21 14:53
[2021-05-07] MEDS: dexAMETHasone 20 MG in DEXTROSE 5% 25 ML IV SCH (08:50)
[2021-05-07] MEDS: BUDESONIDE/FORMOTEROL FUMARATE 80/4.5 60 PUFFS/INHALER INH SCH ×2 (08:50→22:04)
[2021-05-07] MEDS: DOCUSATE SODIUM 100 MG CAP PO SCH ×2 (08:51→22:02)
[2021-05-07] MEDS: PANTOprazole 40 MG in SYRINGE 0 ML IV SCH ×2 (08:51→22:04)
[2021-05-07] MEDS: FINASTERIDE 5 MG TAB PO SCH (08:51)
[2021-05-07] MEDS: ASPIRIN 81 MG ECTAB PO SCH (08:52)
[2021-05-07] MEDS: FENOFIBRATE NANOCRYSTALLIZED 48 MG TABLET PO SCH (08:52)
[2021-05-07] MEDS: OMEGA-3 (PURIFIED FISH OIL) 1 GM CAP PO SCH (08:55)
[2021-05-07] MEDS: TAMSULOSIN HCL 0.4 MG CAP PO SCH (08:55)
[2021-05-07] MEDS: ISOSORBIDE MONO EXTENDED REL 30 MG TABCR PO SCH (08:56)
[2021-05-07] MEDS: INSULIN ASPART PER UNIT SC SCH ×4 (09:05→22:07)
[2021-05-07] MEDS: INSULIN HUMAN NPH SC SCH (09:05)
--- NOTE | 2021-05-07 15:40 | Pharmacy Report ---
Pharmacy Glycemic Short Note 2 - Date of Service May 07, 2021 - Glycemic Short BSG Results (Last 24 hours): 05/06/21 05/06/21 05/06/21 16:01 20:42 20:44 Glucose POC Glucose 145 H 54 L* 56 L* 05/06/21 05/07/21 05/07/21 21:05 05:18 07:19 Glucose 67 L POC Glucose 92 75 05/07/21 11:20 Glucose POC Glucose 176 H OUTPATIENT ANTIDIABETIC REGIMEN: * Trulicity SQ on Fridays * Amaryl 4mg PO QAM * Pioglitzaone 30mg PO QAM * A1c = 10.3% on 04/29/21 ASSESSMENT: 05/07 * Fasting this AM 75 mg/dL, will hold lantus, continue NPH with dexamethasone * Hypoglycemic at HS, will loosen dinner carb ratio 05/06 * Patient remains on Dexamethasone 20mg IV daily today and tomorrow, then scheduled to decrease to 10mg on 05/08. * Blood sugars still rising throughout the day and dropping overnight, will decrease Lantus and tighten CR with meals, also loosen CF/CR at HS to prevent AM hypoglycemia. 05/05 * Stressors stable * AM fasting BSG with notable decrease from HS to this AM (252 - 76 - 81 mg/dL). Etiology of decrease likely predominantly overcorrection of BSG at bedtime after correction factor tightened with dinner. Lantus could also be contributing. Will loosen Novolog correction back to previous and will decrease Lantus slightly. * CHO ratio significantly tightened at lunch then again at dinner yesterday. Pre-lunch BSG still slightly elevated at 184 mg/dL. May need further tightening but will defer until trend is apparent 05/04 * Stressors stable - dexamethasone 20 mg day 2 of 5 * AM fasting BSG with trend up, but regimen was just adjusted yesterday. Will keep for now and potentially adjust tomorrow if trend continues * Post-prandial BSG's all >180 mg/dL yesterday and was >300 mg/dL prior to lunch today. Will give one-time IV bolus and tighten CHO ratio 05/03 * Pt has received 222 units of insulin over the past 24hrs * 60 units of basal with Lantus * 40 units of NPH for steroid induced hyperglycemia * 122 units of bolus with NovoLog * BSGs finally starting to trend downwards last night and into this morning. Have made significant dose increases over the past 5 days and insulin now at steady state. * AM fasting BSG trending downwards significantly therefore will lower Lantus dosing. * BSGs still elevated d/t dexamethasone and dose just increased to 20mg IV. Will increase NPH. * Empirically loosen CF/CR, aiming for a total of ~ 200 units of insulin today PLAN FOR INPATIENT GLYCEMIC CONTROL: * Hold outpatient diabetes medications * Basal insulin * hold lantus * NPH 50 units SQ daily with dexamethasone * Bolus insulin: tighten CR AC, loosen CF/CR HS * NovoLog per scale ACHS or Q6hrs while NPO * Goal Range: Low 110 mg/dL - High 140 mg/dL * Correction Factor: 10 mg/dL/unit with meals (20mg/dL/unit HS) * Nutritional / Prandial insulin per carb ratio of 1 unit per 1 grams CHO consumed with breakfast/lunch; 2 grams at dinner (1 unit per 10 grams CHO consumed HS) PLAN FOR DISCHARGE: * TBD, but patient will likely require insulin at dc based on A1c > 10%
[2021-05-07] MEDS: amLODIPine BESYLATE 5 MG TAB PO SCH (22:01)
[2021-05-07] MEDS: ATORVASTATIN 40 MG TAB PO SCH (22:02)
[2021-05-08] MEDS: hydrALAZINE HCL 25 MG TAB PO SCH ×4 (04:34→22:12)
[2021-05-08] MEDS: LEVOTHYROXINE SODIUM 50 MCG TABLET PO SCH (05:50)
[2021-05-08] MEDS: HEPARIN SOD 5,000 UNIT/0.5 ML VIAL SQ SCH ×3 (05:50→22:11)
[2021-05-08 07:00] LABS: BUN Creatinine Ratio 30.7 (10-20); Calcium 9.3 mg/dl (8.5-10.1); Creatinine Clr Calc Pharmacy 51.9 ml/min; Est GFR (African American) 41.5 ml/min; Est GFR (Non-African American) 35.8 ml/min; Magnesium 2.4 mg/dl (1.8-2.4); Phosphorus 3.5 mg/dl (2.5-4.9); Potassium 4.2 mmol/L (3.5-5.1)
--- NOTE | 2021-05-08 07:06 | Hospitalist Progress Note ---
Date of Service May 08, 2021 Assessment & Plan (1) Acute respiratory failure: Plan: 2/2 covid pneumonia (2) Pneumonia due to 2019 novel coronavirus: Plan: Tested positive for SARS COV2 - 04/26/21. Sx have been ongoing and worsening for ~ 3 weeks. aggressive pulmonary toilet with duonebs, ISP, Flutter valve, self proning- declines to prone Does not meet criteria for remdesivir given duration of sx Has been receiving IV dexamethsone CRP initially improving, but now up at 11 Continue supplemental oxygen-high flow nasal cannula plus or minus BiPAP Evaluated by ICU on 05/02 for possible intubation as patient states he is getting tired. No indication yet for intubation per ICU team. Pt moved to ICU capable room for closer monitoring. Pulmonary/ ICU following Clinically pt is improving/ stable, alternates Hi Flow and CPAP Cont lasix prn, hold today as Cr up PER CONVERSATION WITH HIM ON 04/30, HE IS A FULL CODE AND OK WITH TRACH IF IT EVER CAME TO THAT. (3) Sepsis: Plan: Secondary to COVID-19 virus infection Pt met Sepsis criteria 2/2 tachycardia and fever in setting of known covid-19 infection. Blood and urine cultures negative to date (4) Accelerated essential hypertension: Plan: Patient was on amlodipine, lisinopril and torsemide at home. Norvasc was resumed, the lisinopril is still held resumed Imdur and hydralazine IV Lasix per pulmonary monitor blood pressure closely. (5) Elevated troponin: Plan: Likely demand ischemia in setting of acute illness No ST t wave changes, or chest pain (6) Acute renal failure superimposed on stage 3b chronic kidney disease: Plan: Acute on chronic CKD 3 baseline cr 1.7-1.8 follows [facility] [place] avoid nephrotoxic agents, holding lisinopril (7) T2DM (type 2 diabetes mellitus): Plan: glycemic pharmacist in setting of hyperglycemia and dexamethasone use at goal (8) Sleep apnea: Plan: CPAP qHS (9) Chronic obstructive pulmonary disease: Plan: chornic, stable, cont Symbicort. (10) DVT prophylaxis: Plan: Heparin Full code Disposition-continue PCU monitoring with escalating oxygen needs Admission and Anticipated Discharge Date Admission Date: April 28, 2021 Subjective Patient seen in follow up of resp. failure 2/2 covid 19 pna Currently laying in bed, on cpap Stating feeling well No chest pain, fever, chills. Breathing is better. No abd. pain, n/v hold lasix today, Cr up Review of Systems Review of Systems: All systems reviewed & are unremarkable except as noted in Subjective Physical Exam Physical Exam: Gen- AAO x 3, NAD, obese M, currently on cpap Head- NCAT, EOMI, PERRL Neck-Supple Lungs- decreased breath sounds (mildly improved from prev. exam), No Wheezing Chest- +S1, +S2, No Murmurs Abdomen-Soft, Bowel Sounds Present, obese, Non Tender, Non Distended, No Guarding Musculoskeletal-Full Range of Motion Bilaterally, No CVAT Extremities-No Cyanosis, No Clubbing, No Edema Neuro- awake and alert, answering questions appropriately, speech fluent, moves extremities Psych-Normal Mood Results & Data Results & Data ([facility]) Vital Signs (Past 12 Hours) Vital Signs Temp Pulse Pulse Resp BP BP Pulse Ox 05/08/21 04:30 149/80 H 05/08/21 02:48 36.6 C 72 18 141/92 H 92 05/07/21 22:51 36.5 C 73 18 147/70 H 93 05/07/21 22:25 74 Laboratory Results 05/08/21 05/07/21 05/07/21 Range/Units 05:35 20:12 16:27 Sodium 137 (136-145) mmol/L Potassium 4.2 (3.5-5.1) mmol/L Chloride 103 (98-107) mmol/L Carbon Dioxide 29 (21-32) mmol/L Anion Gap 6.0 (3-11) BUN 60 H (7-18) mg/dl Creatinine 1.94 H (0.6-1.4) mg/dl Est Cr Clr Drug Dosing 51.9 ml/min Est GFR ( Amer) 41.5 ml/min Est GFR (Non-Af Amer) 35.8 ml/min BUN/Creatinine Ratio 30.7 H (10-20) Glucose 99 (70-99) mg/dl POC Glucose 120 H 99 (70-99) mg/dl Calcium 9.3 (8.5-10.1) mg/dl Phosphorus 3.5 (2.5-4.9) mg/dl Magnesium 2.4 (1.8-2.4) mg/dl 12/24/21 12/24/21 Range/Units 11:20 07:19 Sodium (136-145) mmol/L Potassium (3.5-5.1) mmol/L Chloride (98-107) mmol/L Carbon Dioxide (21-32) mmol/L Anion Gap (3-11) BUN (7-18) mg/dl Creatinine (0.6-1.4) mg/dl Est Cr Clr Drug Dosing ml/min Est GFR ( Amer) ml/min Est GFR (Non-Af Amer) ml/min BUN/Creatinine Ratio (10-20) Glucose (70-99) mg/dl POC Glucose 176 H 75 (70-99) mg/dl Calcium (8.5-10.1) mg/dl Phosphorus (2.5-4.9) mg/dl Magnesium (1.8-2.4) mg/dl Medications Administered Current Inpatient Medications Acetaminophen (Acetaminophen 325 Mg Tab) 650 mg PO Q4H PRN PRN Reason: Pain or Fever Stop: 05/28/21 14:53 Last Admin: 05/05/21 19:30 Dose: 650 mg Documented by: Al Hydrox/Mg Hydrox/Simethicone (Aluminum/Magnesium Susp 30 Ml Udc) 15 ml PO Q4H PRN PRN Reason: Dyspepsia Stop: 05/28/21 14:53 Albuterol (Albuterol Hfa 8 Gm Inhaler) 2 puffs INH Q4 PRN PRN Reason: sob,cough or wheeze Stop: 05/28/21 14:53 Last Admin: 05/02/21 19:47 Dose: 2 puffs Documented by: Amlodipine Besylate (Amlodipine Besylate 5 Mg Tab) 5 mg PO [facility] Stop: 05/28/21 20:59 Last Admin: 05/07/21 22:01 Dose: 5 mg Documented by: Aspirin (Aspirin 81 Mg Ectab) [address] [facility] Stop: 05/29/21 08:59 Last Admin: 05/07/21 08:52 Dose: 81 mg Documented by: Atorvastatin Calcium (Atorvastatin 40 Mg Tab) 40 mg PO [facility] Stop: 05/28/21 20:59 Last Admin: 05/07/21 22:02 Dose: 40 mg Documented by: Budesonide/Formoterol Fumarate (Budesonide/Formoterol Fumarate 80/4.5 60 Puffs/Inhaler) 2 puffs INH BID [facility] Stop: 06/01/21 22:59 Last Admin: 05/07/21 22:04 Dose: 2 puffs Documented by: Dextrose (Dextrose 50% 50 Ml Syringe) 25 - 50 ml IV UD PRN; Protocol PRN Reason: Hypoglycemia Protocol Stop: 05/28/21 14:53 Docusate Sodium (Docusate Sodium 100 Mg Cap) 100 mg PO BID [facility] Stop: 06/04/21 20:59 Last Admin: 05/07/21 22:02 Dose: 100 mg Documented by: Fenofibrate (Fenofibrate Nanocrystallized 48 Mg Tablet) 48 mg PO DAILY [facility] Stop: 05/29/21 08:59 Last Admin: 05/07/21 08:52 Dose: 48 mg Documented by: Finasteride (Finasteride 5 Mg Tab) 5 mg PO QAM [facility] Stop: 05/29/21 08:59 Last Admin: 05/07/21 08:51 Dose: 5 mg Documented by: Fish Oil ([place]-3 (Purified Fish Oil) 1 Gm Cap) 1 gm PO QAM [facility] Stop: 05/29/21 08:59 Last Admin: 05/07/21 08:55 Dose: 1 gm Documented by: Furosemide (Furosemide 40 Mg/4 Ml Vial) 40 mg IV DAILY [facility] Stop: 06/04/21 08:59 Last Admin: 05/07/21 08:53 Dose: 40 mg Documented by: Glucagon (Glucagon For Inj 1 Mg Vial) 1 mg SQ UD PRN; Protocol PRN Reason: Hypoglycemia Protocol Stop: 05/28/21 14:53 Glucose (Glucose 10 Tabs/Tube) 4 - 8 tabs PO UD PRN; Protocol PRN Reason: Hypoglycemia Protocol Stop: 05/28/21 14:53 Glucose (Glucose 40% Gel 15 Gm Tube) 15 - 30 gm PO UD PRN; Protocol PRN Reason: Hypoglycemia Protocol Stop: 05/28/21 14:53 Heparin Sodium (Porcine) (Heparin Sod 5,000 Unit/0.5 Ml Vial) 7,500 units SQ Q8 [facility] Stop: 05/29/21 21:59 Last Admin: 05/08/21 05:50 Dose: 7,500 units Documented by: Hydralazine HCl (Hydralazine Hcl 25 Mg Tab) 25 mg PO Q6H [facility] Stop: 06/02/21 10:14 Last Admin: 05/08/21 04:34 Dose: 25 mg Documented by: Dexamethasone 10 mg/ Syringe 2.5 mls @ 1 mls/min IV DAILY [facility] Stop: 05/12/21 09:03 Pantoprazole Sodium 40 mg/ (Syringe) 10 mls @ 5 mls/min IV BID [facility] Stop: 06/02/21 08:59 Last Admin: 05/07/21 22:04 Dose: 5 mls/min Documented by: Insulin Aspart (Insulin Aspart Per Unit) 0 units SC HS [facility]; Protocol Stop: 06/05/21 20:59 Last Admin: 05/07/21 22:07 Dose: Not Given Documented by: Insulin Aspart (Insulin Aspart Per Unit) 0 units SC BID@0730,1130 [facility]; Protocol Stop: 06/06/21 07:29 Last Admin: 05/07/21 13:12 Dose: 36 units Documented by: Insulin Aspart (Insulin Aspart Per Unit) 0 units SC DAILY@1630 [facility]; Protocol Stop: 06/06/21 16:29 Last Admin: 05/07/21 17:43 Dose: 30 units Documented by: Insulin Human NPH (Insulin Human Nph) 50 units SC DAILY [facility] Stop: 06/02/21 08:59 Last Admin: 05/07/21 09:05 Dose: 50 units Documented by: Isosorbide Mononitrate (Isosorbide [place] Extended Rel 30 Mg Tabcr) 30 mg PO QAM [facility] Stop: 06/02/21 10:14 Last Admin: 05/07/21 08:56 Dose: Not Given Documented by: Levothyroxine Sodium (Levothyroxine Sodium 50 Mcg Tablet) 50 mcg PO DAILYBB [facility] Stop: 05/29/21 06:29 Last Admin: 05/08/21 05:50 Dose: 50 mcg Documented by: Magnesium Hydroxide (Magnesium Hydroxide Susp 30 Ml Udc) 30 ml PO Q12H PRN PRN Reason: Constipation Stop: 05/28/21 14:53 Miscellaneous (Carbohydrates For Hypoglycemia ) 15 - 30 gm PO UD PRN PRN Reason: Hypoglycemia Protocol Stop: 05/28/21 14:53 Last Admin: 05/06/21 20:49 Dose: 30 gm Documented by: Miscellaneous Information (Pharmacy Glycemic Mgmt Consult) 1 ea N/A UD PRN PRN Reason: Consult Stop: 05/29/21 12:21 Ondansetron HCl (Ondansetron Inj 2 Mg/Ml 2 Ml Vial) 4 mg IV Q6H PRN PRN Reason: Nausea Stop: 05/28/21 14:53 Polyethylene Glycol (Polyethylene (Miralax) 17 Gm Pack) 17 gm PO DAILY PRN PRN Reason: Constipation Stop: 05/28/21 14:53 Last Admin: 05/06/21 12:19 Dose: 17 gm Documented by: Tamsulosin HCl (Tamsulosin Hcl 0.4 Mg Cap) [facility] [place]: 05/29/21 08:59 Last Admin: 05/07/21 08:55 Dose: 0.4 mg Documented by: Tramadol HCl (Tramadol Hcl 50 Mg Tablet) 50 mg PO Q8 PRN PRN Reason: Pain Stop: 05/28/21 14:53
[2021-05-08] MEDS: INSULIN ASPART PER UNIT SC SCH ×4 (09:05→20:40)
[2021-05-08] MEDS: INSULIN HUMAN NPH SC SCH (09:06)
[2021-05-08] MEDS: dexAMETHasone 10 MG in SYRINGE 0 ML IV SCH (09:14)
[2021-05-08] MEDS: BUDESONIDE/FORMOTEROL FUMARATE 80/4.5 60 PUFFS/INHALER INH SCH ×2 (09:14→20:40)
[2021-05-08] MEDS: PANTOprazole 40 MG in SYRINGE 0 ML IV SCH ×2 (09:15→20:42)
[2021-05-08] MEDS: DOCUSATE SODIUM 100 MG CAP PO SCH ×2 (09:16→20:41)
[2021-05-08] MEDS: TAMSULOSIN HCL 0.4 MG CAP PO SCH (09:17)
[2021-05-08] MEDS: OMEGA-3 (PURIFIED FISH OIL) 1 GM CAP PO SCH (09:17)
[2021-05-08] MEDS: FINASTERIDE 5 MG TAB PO SCH (09:17)
[2021-05-08] MEDS: ASPIRIN 81 MG ECTAB PO SCH (09:17)
[2021-05-08] MEDS: ISOSORBIDE MONO EXTENDED REL 30 MG TABCR PO SCH (09:17)
[2021-05-08] MEDS: FENOFIBRATE NANOCRYSTALLIZED 48 MG TABLET PO SCH (09:18)
--- NOTE | 2021-05-08 16:08 | Pharmacy Report ---
Pharmacy Glycemic Short Note 2 - Date of Service May 08, 2021 - Glycemic Short BSG Results (Last 24 hours): 05/07/21 05/07/21 05/08/21 16:27 20:12 05:35 Glucose 99 POC Glucose 99 120 H 05/08/21 05/08/21 07:14 11:34 Glucose POC Glucose 100 H 248 H OUTPATIENT ANTIDIABETIC REGIMEN: * Trulicity SQ on Fridays * Amaryl 4mg PO QAM * Pioglitzaone 30mg PO QAM * A1c = 10.3% on 04/29/21 ASSESSMENT: 05/08 * Fasting 100mg/dl, dexamethasone decreased to 10mg, NPH decreased empirically to prevent hypoglycemia, may need to be increased back up some. * Continue tight NovoLog coverage during the day and loose at bedtime. 05/07 * Fasting this AM 75 mg/dL, will hold lantus, continue NPH with dexamethasone * Hypoglycemic at HS, will loosen dinner carb ratio 05/06 * Patient remains on Dexamethasone 20mg IV daily today and tomorrow, then scheduled to decrease to 10mg on 05/08. * Blood sugars still rising throughout the day and dropping overnight, will decrease Lantus and tighten CR with meals, also loosen CF/CR at HS to prevent AM hypoglycemia. 05/05 * Stressors stable * AM fasting BSG with notable decrease from HS to this AM (252 - 76 - 81 mg/dL). Etiology of decrease likely predominantly overcorrection of BSG at bedtime after correction factor tightened with dinner. Lantus could also be contributing. Will loosen Novolog correction back to previous and will decrease Lantus slightly. * CHO ratio significantly tightened at lunch then again at dinner yesterday. Pre-lunch BSG still slightly elevated at 184 mg/dL. May need further tightening but will defer until trend is apparent 05/04 * Stressors stable - dexamethasone 20 mg day 2 of 5 * AM fasting BSG with trend up, but regimen was just adjusted yesterday. Will keep for now and potentially adjust tomorrow if trend continues * Post-prandial BSG's all >180 mg/dL yesterday and was >300 mg/dL prior to lunch today. Will give one-time IV bolus and tighten CHO ratio 05/03 * Pt has received 222 units of insulin over the past 24hrs * 60 units of basal with Lantus * 40 units of NPH for steroid induced hyperglycemia * 122 units of bolus with NovoLog * BSGs finally starting to trend downwards last night and into this morning. Harrison ve made significant dose increases over the past 5 days and insulin now at steady state. * AM fasting BSG trending downwards significantly therefore will lower Lantus dosing. * BSGs still elevated d/t dexamethasone and dose just increased to 20mg IV. Will increase NPH. * Empirically loosen CF/CR, aiming for a total of ~ 200 units of insulin today PLAN FOR INPATIENT GLYCEMIC CONTROL: * Hold outpatient diabetes medications * Basal insulin * hold Lantus * NPH 25 units SQ daily with dexamethasone * Bolus insulin: * NovoLog per scale ACHS or Q6hrs while NPO * Goal Range: Low 110 mg/dL - High 140 mg/dL * Correction Factor: 10 mg/dL/unit with meals (20mg/dL/unit HS) * Nutritional / Prandial insulin per carb ratio of 1 unit per 1 grams CHO consumed with breakfast/lunch; 2 grams at dinner (1 unit per 10 grams CHO consumed HS) PLAN FOR DISCHARGE: * TBD, but patient will likely require insulin at dc based on A1c > 10%
[2021-05-08] MEDS: ATORVASTATIN 40 MG TAB PO SCH (20:41)
[2021-05-08] MEDS: amLODIPine BESYLATE 5 MG TAB PO SCH (20:41)
[2021-05-08] MEDS: ACETAMINOPHEN 325 MG TAB PO PRN (20:45)
[2021-05-08] MEDS: traMADol HCL 50 MG TABLET PO PRN (20:45)
[2021-05-09] MEDS: hydrALAZINE HCL 25 MG TAB PO SCH ×4 (04:01→21:35)
[2021-05-09] MEDS: HEPARIN SOD 5,000 UNIT/0.5 ML VIAL SQ SCH ×3 (06:15→21:34)
[2021-05-09] MEDS: LEVOTHYROXINE SODIUM 50 MCG TABLET PO SCH (06:15)
[2021-05-09 07:38] LABS: BUN Creatinine Ratio 30.2 (10-20); Calcium 9.1 mg/dl (8.5-10.1); Creatinine Clr Calc Pharmacy 58.9 ml/min; Est GFR (Non-African American) 41.4 ml/min; Magnesium 2.5 mg/dl (1.8-2.4); Phosphorus 3.8 mg/dl (2.5-4.9); Potassium 4.3 mmol/L (3.5-5.1)
[2021-05-09] MEDS: BUDESONIDE/FORMOTEROL FUMARATE 80/4.5 60 PUFFS/INHALER INH SCH ×2 (09:19→21:34)
[2021-05-09] MEDS: DOCUSATE SODIUM 100 MG CAP PO SCH ×2 (09:20→21:34)
[2021-05-09] MEDS: dexAMETHasone 10 MG in SYRINGE 0 ML IV SCH (09:20)
[2021-05-09] MEDS: OMEGA-3 (PURIFIED FISH OIL) 1 GM CAP PO SCH (09:21)
[2021-05-09] MEDS: FENOFIBRATE NANOCRYSTALLIZED 48 MG TABLET PO SCH (09:21)
[2021-05-09] MEDS: FINASTERIDE 5 MG TAB PO SCH (09:21)
[2021-05-09] MEDS: ASPIRIN 81 MG ECTAB PO SCH (09:21)
[2021-05-09] MEDS: ISOSORBIDE MONO EXTENDED REL 30 MG TABCR PO SCH (09:22)
[2021-05-09] MEDS: PANTOprazole 40 MG in SYRINGE 0 ML IV SCH ×2 (09:23→21:34)
[2021-05-09] MEDS: TAMSULOSIN HCL 0.4 MG CAP PO SCH (09:23)
[2021-05-09] MEDS: INSULIN ASPART PER UNIT SC SCH ×4 (09:41→21:58)
[2021-05-09] MEDS: INSULIN HUMAN NPH SC SCH (09:42)
[2021-05-09] MEDS ORDERED: FUROSEMIDE 40 MG/4 ML VIAL IV ONE (12:15)
--- NOTE | 2021-05-09 12:27 | Hospitalist Progress Note ---
Date of Service May 09, 2021 Assessment & Plan (1) Acute respiratory failure: Plan: 2/2 covid pneumonia (2) Pneumonia due to 2019 novel coronavirus: Plan: Tested positive for SARS COV2 - 04/26/21. Sx have been ongoing and worsening for ~ 3 weeks. aggressive pulmonary toilet with duonebs, ISP, Flutter valve, self proning- declines to prone Does not meet criteria for remdesivir given duration of symptoms Has been receiving IV dexamethsone CRP initially improving, but now up at 11 Continue supplemental oxygen-high flow nasal cannula plus or minus BiPAP Evaluated by ICU on 05/02 for possible intubation as patient states he is getting tired. No indication yet for intubation per ICU team. Pt moved to ICU capable room for closer monitoring. Pulmonary/ ICU following and no indication to give Tocilizumab and/or baricitinib Has been receiving intravenous Lasix and maintained on negative balance with frequent monitoring of PRP PER CONVERSATION WITH HIM ON 04/30, HE IS A FULL CODE AND OK WITH TRACH IF IT EVER CAME TO THAT. (3) Sepsis: Plan: Secondary to COVID-19 virus infection Pt met Sepsis criteria 2/2 tachycardia and fever in setting of known covid-19 infection. Blood and urine cultures negative to date (4) Accelerated essential hypertension: Plan: Patient was on amlodipine, lisinopril and torsemide at home. Norvasc was resumed, the lisinopril is still held resumed Imdur and hydralazine IV Lasix per pulmonary monitor blood pressure closely. Blood pressure is maintained (5) Elevated troponin: Plan: Likely demand ischemia in setting of acute illness No ST t wave changes, or chest pain (6) Acute renal failure superimposed on stage 3b chronic kidney disease: Plan: Acute on chronic CKD 3 baseline cr 1.7-1.8 follows [facility] [place] nephro avoid nephrotoxic agents, holding lisinopril Creatinine is 1.72 as of 05/09/2021-we will give another dose of Lasix of 40 mg IV today (7) T2DM (type 2 diabetes mellitus): Plan: Glycemic pharmacist in setting of hyperglycemia and dexamethasone use at goal (8) Sleep apnea: Plan: CPAP qHS (9) Chronic obstructive pulmonary disease: Plan: Chornic, stable, cont Symbicort. (10) DVT prophylaxis: Plan: Heparin Full code Disposition-continue PCU monitoring with escalating oxygen needs Admission and Anticipated Discharge Date Admission Date: April 28, 2021 Subjective 05/09/2021 The patient was seen and examined in telemetry unit and in the Covid room He remained stable and has been on CPAP He cannot lie prone but he has been trying to lie on sides Denies any symptoms at rest Review of Systems Review of Systems: All systems reviewed negative except as indicated above. Respiratory: Moderate shortness of breath at rest Physical Exam Physical Exam: In bed with moderate distress due to shortness of breath Constitutional: well developed, well nourished, + ill appearing and + morbidly obese Eyes: PERRL, conjunctivae normal, anicteric sclerae ENMT: external ear and nose normal, oropharynx normal Neck: trachea midline, no thyromegaly Respiratory: + respiratory distress Auscultation: + diminished lung sounds and + crackles (Minimal crackles at the bases) Cardiovascular: Rate/Rhythm: regular rate and regular rhythm; not tachycardic Heart Sounds: normal S1 and normal S2; no murmur Extremities: + edema (1+ edema with chronic skin changes) Gastrointestinal (Abdomen): Inspection/Auscultation: + abdomen distended and normal bowel sounds Percussion/Palpation: abdomen soft; abdomen nontender Musculoskeletal: No acute arthritis in any joint Neurologic: Alert, awake and oriented x3. No focal sensory and motor deficit appreciated Lymphatic: no cervical or axillary lymphadenopathy Results & Data Results & Data ([facility]) Vital Signs (Past 12 Hours) Vital Signs Temp Pulse Resp BP BP Pulse Ox 05/09/21 11:50 36.6 C 67 22 135/71 94 05/09/21 07:47 36.6 C 73 20 134/64 94 05/09/21 03:52 36.3 C L 78 18 154/86 H 98 Laboratory Results [facility] 05/09/21 05:51 Sodium 138 Potassium 4.3 Chloride 104 Carbon Dioxide 30 BUN 52 H Creatinine 1.72 H Glucose 84 Calcium 9.1 Medications Administered Current Inpatient Medications Acetaminophen (Acetaminophen 325 Mg Tab) 650 mg PO Q4H PRN PRN Reason: Pain or Fever Stop: 05/28/21 14:53 Last Admin: 05/08/21 20:45 Dose: 650 mg Documented by: Al Hydrox/Mg Hydrox/Simethicone (Aluminum/Magnesium Susp 30 Ml Udc) 15 ml PO Q4H PRN PRN Reason: Dyspepsia Stop: 05/28/21 14:53 Albuterol (Albuterol Hfa 8 Gm Inhaler) 2 puffs INH Q4 PRN PRN Reason: sob,cough or wheeze Stop: 05/28/21 14:53 Last Admin: 05/02/21 19:47 Dose: 2 puffs Documented by: Amlodipine Besylate (Amlodipine Besylate 5 Mg Tab) 5 mg PO [facility] Stop: 05/28/21 20:59 Last Admin: 05/08/21 20:41 Dose: 5 mg Documented by: Aspirin (Aspirin 81 Mg Ectab) 81 mg PO QAM [facility] Stop: 05/29/21 08:59 Last Admin: 05/09/21 09:21 Dose: 81 mg Documented by: Atorvastatin Calcium (Atorvastatin 40 Mg Tab) 40 mg PO [facility] Stop: 05/28/21 20:59 Last Admin: 05/08/21 20:41 Dose: 40 mg Documented by: Budesonide/Formoterol Fumarate (Budesonide/Formoterol Fumarate 80/4.5 60 Puffs/Inhaler) 2 puffs INH BID [facility] Stop: 06/01/21 22:59 Last Admin: 05/09/21 09:19 Dose: 2 puffs Documented by: Dextrose (Dextrose 50% 50 Ml Syringe) 25 - 50 ml IV UD PRN; Protocol PRN Reason: Hypoglycemia Protocol Stop: 05/28/21 14:53 Docusate Sodium (Docusate Sodium 100 Mg Cap) 100 mg PO BID [facility] Stop: 06/04/21 20:59 Last Admin: 05/09/21 09:20 Dose: Not Given Documented by: Fenofibrate (Fenofibrate Nanocrystallized 48 Mg Tablet) 48 mg PO DAILY [facility] Stop: 05/29/21 08:59 Last Admin: 05/09/21 09:21 Dose: 48 mg Documented by: Finasteride (Finasteride 5 Mg Tab) 5 mg PO QAM [facility] Stop: 05/29/21 08:59 Last Admin: 05/09/21 09:21 Dose: 5 mg Documented by: Fish Oil ([place]-3 (Purified Fish Oil) 1 Gm Cap) 1 gm PO QAM [facility] Stop: 05/29/21 08:59 Last Admin: 05/09/21 09:21 Dose: 1 gm Documented by: Furosemide (Furosemide 40 Mg/4 Ml Vial) 40 mg IV DAILY [facility] Stop: 06/04/21 08:59 Last Admin: 05/07/21 08:53 Dose: 40 mg Documented by: Glucagon (Glucagon For Inj 1 Mg Vial) 1 mg SQ UD PRN; Protocol PRN Reason: Hypoglycemia Protocol Stop: 05/28/21 14:53 Glucose (Glucose 10 Tabs/Tube) 4 - 8 tabs PO UD PRN; Protocol PRN Reason: Hypoglycemia Protocol Stop: 05/28/21 14:53 Glucose (Glucose 40% Gel 15 Gm Tube) 15 - 30 gm PO UD PRN; Protocol PRN Reason: Hypoglycemia Protocol Stop: 05/28/21 14:53 Heparin Sodium (Porcine) (Heparin Sod 5,000 Unit/0.5 Ml Vial) 7,500 units SQ Q8 [facility] Stop: 05/29/21 21:59 Last Admin: 05/09/21 06:15 Dose: 7,500 units Documented by: Hydralazine HCl (Hydralazine Hcl 25 Mg Tab) 25 mg PO Q6H [facility] Stop: 06/02/21 10:14 Last Admin: 05/09/21 11:57 Dose: Not Given Documented by: Dexamethasone 10 mg/ Syringe 2.5 mls @ 1 mls/min IV DAILY [facility] Stop: 05/12/21 09:03 Last Admin: 05/09/21 09:20 Dose: 1 mls/min Documented by: Pantoprazole Sodium 40 mg/ (Syringe) 10 mls @ 5 mls/min IV BID [facility] Stop: 06/02/21 08:59 Last Admin: 05/09/21 09:23 Dose: 5 mls/min Documented by: Insulin Aspart (Insulin Aspart Per Unit) 0 units SC HS [facility]; Protocol Stop: 06/05/21 20:59 Last Admin: 05/08/21 20:40 Dose: Not Given Documented by: Insulin Aspart (Insulin Aspart Per Unit) 0 units SC BID@0730,1130 [facility]; Protocol Stop: 06/06/21 07:29 Last Admin: 05/09/21 09:41 Dose: 40 units Documented by: Insulin Aspart (Insulin Aspart Per Unit) 0 units SC DAILY@1630 [facility]; Protocol Stop: 06/06/21 16:29 Last Admin: 05/08/21 17:39 Dose: 32 units Documented by: Insulin Human NPH (Insulin Human Nph) 25 units SC DAILY [facility] Stop: 06/07/21 08:59 Last Admin: 05/09/21 09:42 Dose: 25 units Documented by: Isosorbide Mononitrate (Isosorbide [place] Extended Rel 30 Mg Tabcr) 30 mg PO QAM [facility] Stop: 06/02/21 10:14 Last Admin: 05/09/21 09:22 Dose: 30 mg Documented by: Levothyroxine Sodium (Levothyroxine Sodium 50 Mcg Tablet) 50 mcg PO DAILYBB [facility] Stop: 05/29/21 06:29 Last Admin: 05/09/21 06:15 Dose: 50 mcg Documented by: Magnesium Hydroxide (Magnesium Hydroxide Susp 30 Ml Udc) 30 ml PO Q12H PRN PRN Reason: Constipation Stop: 05/28/21 14:53 Miscellaneous (Carbohydrates For Hypoglycemia ) 15 - 30 gm PO UD PRN PRN Reason: Hypoglycemia Protocol Stop: 05/28/21 14:53 Last Admin: 05/06/21 20:49 Dose: 30 gm Documented by: Miscellaneous Information (Pharmacy Glycemic Mgmt Consult) 1 ea N/A UD PRN PRN Reason: Consult Stop: 05/29/21 12:21 Ondansetron HCl (Ondansetron Inj 2 Mg/Ml 2 Ml Vial) 4 mg IV Q6H PRN PRN Reason: Nausea Stop: 05/28/21 14:53 Polyethylene Glycol (Polyethylene (Miralax) 17 Gm Pack) 17 gm PO DAILY PRN PRN Reason: Constipation Stop: 05/28/21 14:53 Last Admin: 05/06/21 12:19 Dose: 17 gm Documented by: Tamsulosin HCl (Tamsulosin Hcl 0.4 Mg Cap) 0.4 mg PO QAM [facility] Stop: 05/29/21 08:59 Last Admin: 05/09/21 09:23 Dose: 0.4 mg Documented by: Tramadol HCl (Tramadol Hcl 50 Mg Tablet) 50 mg PO Q8 PRN PRN Reason: Pain Stop: 05/28/21 14:53 Last Admin: 05/08/21 20:45 Dose: 50 mg Documented by:
[2021-05-09] MEDS: ATORVASTATIN 40 MG TAB PO SCH (21:34)
[2021-05-09] MEDS: amLODIPine BESYLATE 5 MG TAB PO SCH (21:34)
[2021-05-09] MEDS: traMADol HCL 50 MG TABLET PO PRN (21:54)
[2021-05-09] MEDS: ACETAMINOPHEN 325 MG TAB PO PRN (22:02)
[2021-05-10] MEDS: hydrALAZINE HCL 25 MG TAB PO SCH ×4 (03:48→21:14)
[2021-05-10] MEDS: HEPARIN SOD 5,000 UNIT/0.5 ML VIAL SQ SCH ×3 (06:08→21:14)
[2021-05-10] MEDS: LEVOTHYROXINE SODIUM 50 MCG TABLET PO SCH (06:08)
[2021-05-10 07:47] LABS: BUN Creatinine Ratio 29.8 (10-20); Calcium 8.9 mg/dl (8.5-10.1); Creatinine Clr Calc Pharmacy 56.1 ml/min; Est GFR (African American) 44.8 ml/min; Est GFR (Non-African American) 38.7 ml/min; Potassium 4.2 mmol/L (3.5-5.1)
[2021-05-10] MEDS: INSULIN HUMAN NPH SC SCH (08:27)
[2021-05-10] MEDS: INSULIN ASPART PER UNIT SC SCH ×4 (08:27→21:13)
[2021-05-10] MEDS: dexAMETHasone 10 MG in SYRINGE 0 ML IV SCH (08:37)
[2021-05-10] MEDS: FENOFIBRATE NANOCRYSTALLIZED 48 MG TABLET PO SCH (08:37)
[2021-05-10] MEDS: OMEGA-3 (PURIFIED FISH OIL) 1 GM CAP PO SCH (08:37)
[2021-05-10] MEDS: FINASTERIDE 5 MG TAB PO SCH (08:37)
[2021-05-10] MEDS: DOCUSATE SODIUM 100 MG CAP PO SCH ×2 (08:37→21:12)
[2021-05-10] MEDS: ISOSORBIDE MONO EXTENDED REL 30 MG TABCR PO SCH (08:37)
[2021-05-10] MEDS: TAMSULOSIN HCL 0.4 MG CAP PO SCH (08:37)
[2021-05-10] MEDS: ASPIRIN 81 MG ECTAB PO SCH (08:37)
[2021-05-10] MEDS: PANTOprazole 40 MG in SYRINGE 0 ML IV SCH ×2 (08:38→21:13)
[2021-05-10] MEDS: BUDESONIDE/FORMOTEROL FUMARATE 80/4.5 60 PUFFS/INHALER INH SCH ×2 (08:38→21:13)
--- NOTE | 2021-05-10 13:54 | Pharmacy Report ---
Pharmacy Glycemic Short Note 2 - Date of Service May 10, 2021 - Glycemic Short BSG Results (Last 24 hours): 05/09/21 05/09/21 05/10/21 16:48 20:16 06:42 Glucose 79 POC Glucose 136 H 110 H 05/10/21 05/10/21 07:44 11:55 Glucose POC Glucose 83 231 H OUTPATIENT ANTIDIABETIC REGIMEN: * Trulicity SQ on Fridays * Amaryl 4mg PO QAM * Pioglitzaone 30mg PO QAM * A1c = 10.3% on 04/29/21 ASSESSMENT: 05/10: * Fasting BSG 79 mg/dL today, despite no HS novolog coverage. Although NPH typically would not affect fasting BSG, it can sometimes occur. Will reduce NPH dose by ~20%. * Post prandial BSG elevations today likely somewhat due to increased number of carbs per meal. * Patient remains on IV dexamethasone 05/08 * Fasting 100mg/dl, dexamethasone decreased to 10mg, NPH decreased empirically to prevent hypoglycemia, may need to be increased back up some. * Continue tight NovoLog coverage during the day and loose at bedtime. 05/07 * Fasting this AM 75 mg/dL, will hold lantus, continue NPH with dexamethasone * Hypoglycemic at HS, will loosen dinner carb ratio 05/06 * Patient remains on Dexamethasone 20mg IV daily today and tomorrow, then scheduled to decrease to 10mg on 05/08. * Blood sugars still rising throughout the day and dropping overnight, will decrease Lantus and tighten CR with meals, also loosen CF/CR at HS to prevent AM hypoglycemia. 05/05 * Stressors stable * AM fasting BSG with notable decrease from HS to this AM (252 - 76 - 81 mg/dL). Etiology of decrease likely predominantly overcorrection of BSG at bedtime after correction factor tightened with dinner. Lantus could also be contributing. Will loosen Novolog correction back to previous and will decrease Lantus slightly. * CHO ratio significantly tightened at lunch then again at dinner yesterday. Pre-lunch BSG still slightly elevated at 184 mg/dL. May need further tightening but will defer until trend is apparent 05/04 * Stressors stable - dexamethasone 20 mg day 2 of 5 * AM fasting BSG with trend up, but regimen was just adjusted yesterday. Will keep for now and potentially adjust tomorrow if trend continues * Post-prandial BSG's all >180 mg/dL yesterday and was >300 mg/dL prior to lunch today. Will give one-time IV bolus and tighten CHO ratio 05/03 * Pt has received 222 units of insulin over the past 24hrs * 60 units of basal with Lantus * 40 units of NPH for steroid induced hyperglycemia * 122 units of bolus with NovoLog * BSGs finally starting to trend downwards last night and into this morning. Have made significant dose increases over the past 5 days and insulin now at steady state. * AM fasting BSG trending downwards significantly therefore will lower Lantus dosing. * BSGs still elevated d/t dexamethasone and dose just increased to 20mg IV. Will increase NPH. * Empirically loosen CF/CR, aiming for a total of ~ 200 units of insulin today PLAN FOR INPATIENT GLYCEMIC CONTROL: * Hold outpatient diabetes medications * Basal insulin * hold Lantus * NPH 20 units SQ daily with dexamethasone * Bolus insulin: * NovoLog per scale ACHS or Q6hrs while NPO * Goal Range: Low 90 mg/dL - High 140 mg/dL * Correction Factor: 10 mg/dL/unit with meals (50mg/dL/unit HS) * Nutritional / Prandial insulin per carb ratio of 1 unit per 1.5 grams CHO consumed with breakfast/lunch; 2.5 grams at dinner (no carb coverage for HS) PLAN FOR DISCHARGE: * TBD, but patient will likely require insulin at dc based on A1c > 10%
--- NOTE | 2021-05-10 14:43 | Hospitalist Progress Note ---
Date of Service May 10, 2021 Assessment & Plan (1) Acute respiratory failure: Plan: 2/2 covid pneumonia (2) Pneumonia due to 2019 novel coronavirus: Plan: Tested positive for SARS COV2 - 04/26/21. Sx have been ongoing and worsening for ~ 3 weeks. aggressive pulmonary toilet with duonebs, ISP, Flutter valve, self proning- declines to prone Does not meet criteria for remdesivir given duration of symptoms Has been receiving IV dexamethsone CRP initially improving, but now up at 11 Continue supplemental oxygen-high flow nasal cannula plus or minus BiPAP Evaluated by ICU on 05/02 for possible intubation as patient states he is getting tired. No indication yet for intubation per ICU team. Pt moved to ICU capable room for closer monitoring. Pulmonary/ ICU following and no indication to give Tocilizumab and/or baricitinib Has been receiving intravenous Lasix and maintained on negative balance with frequent monitoring of PRP He has been feeling much better today and his creatinine has gone up to 1.8 He will not be given any Lasix today PER CONVERSATION WITH HIM ON 04/30, HE IS A FULL CODE AND OK WITH TRACH IF IT EVER CAME TO THAT. (3) Sepsis: Plan: Secondary to COVID-19 virus infection Pt met Sepsis criteria 2/2 tachycardia and fever in setting of known covid-19 infection. Blood and urine cultures negative to date (4) Accelerated essential hypertension: Plan: Patient was on amlodipine, lisinopril and torsemide at home. Norvasc was resumed, the lisinopril is still held resumed Imdur and hydralazine IV Lasix per pulmonary monitor blood pressure closely. Blood pressure is maintained (5) Elevated troponin: Plan: Likely demand ischemia in setting of acute illness No ST t wave changes, or chest pain (6) Acute renal failure superimposed on stage 3b chronic kidney disease: Plan: Acute on chronic CKD 3 baseline cr 1.7-1.8 [place] [facility] [place] nephrotoxic agents, holding lisinopril Creatinine is 1.72 as of 05/09/2021-we will give another dose of Lasix of 40 mg IV today Creatinine has gone up to 1.82 though it is within his baseline but will hold Lasix for today (7) T2DM (type 2 diabetes mellitus): Plan: Glycemic pharmacist in setting of hyperglycemia and dexamethasone use at goal (8) Sleep apnea: Plan: CPAP qHS (9) Chronic obstructive pulmonary disease: Plan: Chornic, stable, cont Symbicort. (10) DVT prophylaxis: Plan: Heparin Full code Disposition-continue PCU monitoring with escalating oxygen needs Admission and Anticipated Discharge Date Admission Date: April 28, 2021 Subjective 05/09/2021 The patient was seen and examined in telemetry unit and in the Covid room He remained stable and has been on CPAP He cannot lie prone but he has been trying to lie on sides Denies any symptoms at rest 05/10/2021 The patient was seen and examined in telemetry unit and in the Covid room He has been feeling much better today and is saturating with high flow nasal cannula He has been communicating without any interaction Review of Systems Review of Systems: All systems reviewed negative except as indicated above. Respiratory: Minimal to no shortness of breath at rest Physical Exam Physical Exam: In bed with moderate distress due to shortness of breath Constitutional: well developed, well nourished, + ill appearing and + morbidly obese Eyes: PERRL, conjunctivae normal, anicteric sclerae ENMT: external ear and nose normal, oropharynx normal Neck: trachea midline, no thyromegaly Respiratory: + respiratory distress Auscultation: + diminished lung sounds and + crackles (Minimal crackles at the bases) Cardiovascular: Rate/Rhythm: regular rate and regular rhythm; not tachycardic Heart Sounds: normal S1 and normal S2; no murmur Extremities: + edema (1+ edema with chronic skin changes) Gastrointestinal (Abdomen): Inspection/Auscultation: + abdomen distended and normal bowel sounds Percussion/Palpation: abdomen soft; abdomen nontender Musculoskeletal: No acute arthritis in any joint Neurologic: Alert, awake and oriented x3. No focal sensory and motor deficit appreciated Lymphatic: no cervical or axillary lymphadenopathy Results & Data Results & Data ([facility]) Vital Signs (Past 12 Hours) Vital Signs Temp Pulse Pulse Resp BP BP Pulse Ox 05/10/21 10:51 36.6 C 79 22 152/78 H 96 05/10/21 09:14 92 05/10/21 07:26 92 05/10/21 07:24 64 05/10/21 07:16 36.3 C L 66 22 127/70 95 05/10/21 03:43 36.3 C L 64 20 146/[address] [facility] 05/10/21 06:42 Sodium 138 Potassium 4.2 Chloride 103 Carbon Dioxide 29 BUN 54 H Creatinine 1.82 H Glucose 79 Calcium 8.9 Medications Administered Current Inpatient Medications Acetaminophen (Acetaminophen 325 Mg Tab) 650 mg PO Q4H PRN PRN Reason: Pain or Fever Stop: 05/28/21 14:53 Last Admin: 05/09/21 22:02 Dose: 650 mg Documented by: Al Hydrox/Mg Hydrox/Simethicone (Aluminum/Magnesium Susp 30 Ml Udc) 15 ml PO Q4H PRN PRN Reason: Dyspepsia Stop: 05/28/21 14:53 Albuterol (Albuterol Hfa 8 Gm Inhaler) 2 puffs INH Q4 PRN PRN Reason: sob,cough or wheeze Stop: 05/28/21 14:53 Last Admin: 05/02/21 19:47 Dose: 2 puffs Documented by: Amlodipine Besylate (Amlodipine Besylate 5 Mg Tab) 5 mg PO [facility] Stop: 05/28/21 20:59 Last Admin: 05/09/21 21:34 Dose: 5 mg Documented by: Aspirin (Aspirin 81 Mg Ectab) 81 mg PO QAM [facility] Stop: 05/29/21 08:59 Last Admin: 05/10/21 08:37 Dose: 81 mg Documented by: Atorvastatin Calcium (Atorvastatin 40 Mg Tab) 40 mg PO HS [facility] Stop: 05/28/21 20:59 Last Admin: 05/09/21 21:34 Dose: 40 mg Documented by: Budesonide/Formoterol Fumarate (Budesonide/Formoterol Fumarate 80/4.5 60 Puffs/Inhaler) 2 puffs INH BID [facility] Stop: 06/01/21 22:59 Last Admin: 05/10/21 08:38 Dose: 2 puffs Documented by: Dextrose (Dextrose 50% 50 Ml Syringe) 25 - 50 ml IV UD PRN; Protocol PRN Reason: Hypoglycemia Protocol Stop: 05/28/21 14:53 Docusate Sodium (Docusate Sodium 100 Mg Cap) 100 mg PO BID [facility] Stop: 06/04/21 20:59 Last Admin: 05/10/21 08:37 Dose: 100 mg Documented by: Fenofibrate (Fenofibrate Nanocrystallized 48 Mg Tablet) 48 mg PO DAILY [facility] Stop: 05/29/21 08:59 Last Admin: 05/10/21 08:37 Dose: 48 mg Documented by: Finasteride (Finasteride 5 Mg Tab) 5 mg PO QAM [facility] Stop: 05/29/21 08:59 Last Admin: 05/10/21 08:37 Dose: 5 mg Documented by: Fish Oil ([place]-3 (Purified Fish Oil) 1 Gm Cap) 1 gm PO QAM [facility] Stop: 05/29/21 08:59 Last Admin: 05/10/21 08:37 Dose: 1 gm Documented by: Furosemide (Furosemide 40 Mg/4 Ml Vial) 40 mg IV DAILY [facility] Stop: 06/04/21 08:59 Last Admin: 05/07/21 08:53 Dose: 40 mg Documented by: Glucagon (Glucagon For Inj 1 Mg Vial) 1 mg SQ UD PRN; Protocol PRN Reason: Hypoglycemia Protocol Stop: 05/28/21 14:53 Glucose (Glucose 10 Tabs/Tube) 4 - 8 tabs PO UD PRN; Protocol PRN Reason: Hypoglycemia Protocol Stop: 05/28/21 14:53 Glucose (Glucose 40% Gel 15 Gm Tube) 15 - 30 gm PO UD PRN; Protocol PRN Reason: Hypoglycemia Protocol Stop: 05/28/21 14:53 Heparin Sodium (Porcine) (Heparin Sod 5,000 Unit/0.5 Ml Vial) 7,500 units SQ Q8 [facility] Stop: 05/29/21 21:59 Last Admin: 05/10/21 13:47 Dose: 7,500 units Documented by: Hydralazine HCl (Hydralazine Hcl 25 Mg Tab) 25 mg PO Q6H [facility] Stop: 06/02/21 10:14 Last Admin: 05/10/21 10:20 Dose: Not Given Documented by: Dexamethasone 10 mg/ Syringe 2.5 mls @ 1 mls/min IV DAILY [facility] Stop: 05/12/21 09:03 Last Admin: 05/10/21 08:37 Dose: 1 mls/min Documented by: Pantoprazole Sodium 40 mg/ (Syringe) 10 mls @ 5 mls/min IV BID [facility] Stop: 06/02/21 08:59 Last Admin: 05/10/21 08:38 Dose: 5 mls/min Documented by: Insulin Aspart (Insulin Aspart Per Unit) 0 units SC HS [facility]; Protocol Stop: 06/05/21 20:59 Last Admin: 05/09/21 21:58 Dose: Not Given Documented by: Insulin Aspart (Insulin Aspart Per Unit) 0 units SC BID@0730,1130 [facility]; Protocol Stop: 06/06/21 07:29 Last Admin: 05/10/21 12:33 Dose: 71 units Documented by: Insulin Aspart (Insulin Aspart Per Unit) 0 units SC DAILY@1630 [facility]; Protocol Stop: 06/06/21 16:29 Last Admin: 05/09/21 17:17 Dose: 28 units Documented by: Insulin Human NPH (Insulin Human Nph) 20 units SC DAILY [facility] Stop: 06/09/21 08:59 Last Admin: 05/10/21 08:27 Dose: 20 units Documented by: Isosorbide Mononitrate (Isosorbide [place] Extended Rel 30 Mg Tabcr) [address] [facility] Stop: 06/02/21 10:14 Last Admin: 05/10/21 08:37 Dose: 30 mg Documented by: Levothyroxine Sodium (Levothyroxine Sodium 50 Mcg Tablet) [facility] Stop: 05/29/21 06:29 Last Admin: 05/10/21 06:08 Dose: 50 mcg Documented by: Magnesium Hydroxide (Magnesium Hydroxide Susp 30 Ml Udc) 30 ml PO Q12H PRN PRN Reason: Constipation Stop: 05/28/21 14:53 Miscellaneous (Carbohydrates For Hypoglycemia ) 15 - 30 gm PO UD PRN PRN Reason: Hypoglycemia Protocol Stop: 05/28/21 14:53 Last Admin: 05/06/21 20:49 Dose: 30 gm Documented by: Miscellaneous Information (Pharmacy Glycemic Mgmt Consult) 1 ea N/A UD PRN PRN Reason: Consult Stop: 05/29/21 12:21 Ondansetron HCl (Ondansetron Inj 2 Mg/Ml 2 Ml Vial) 4 mg IV Q6H PRN PRN Reason: Nausea Stop: 05/28/21 14:53 Polyethylene Glycol (Polyethylene (Miralax) 17 Gm Pack) 17 gm PO DAILY PRN PRN Reason: Constipation Stop: 05/28/21 14:53 Last Admin: 05/06/21 12:19 Dose: 17 gm Documented by: Tamsulosin HCl (Tamsulosin Hcl 0.4 Mg Cap) [facility] [place]: 05/29/21 08:59 Last Admin: 12/27/21 08:37 Dose: 0.4 mg Documented by: Tramadol HCl (Tramadol Hcl 50 Mg Tablet) 50 mg PO Q8 PRN PRN Reason: Pain Stop: 05/28/21 14:53 Last Admin: 05/09/21 21:54 Dose: 50 mg Documented by:
[2021-05-10] MEDS: ACETAMINOPHEN 325 MG TAB PO PRN (21:09)
[2021-05-10] MEDS: traMADol HCL 50 MG TABLET PO PRN (21:09)
[2021-05-10] MEDS: amLODIPine BESYLATE 5 MG TAB PO SCH (21:12)
[2021-05-10] MEDS: ATORVASTATIN 40 MG TAB PO SCH (21:12)
[2021-05-11] MEDS: hydrALAZINE HCL 25 MG TAB PO SCH ×4 (04:00→21:22)
[2021-05-11] MEDS: HEPARIN SOD 5,000 UNIT/0.5 ML VIAL SQ SCH ×3 (05:57→21:00)
[2021-05-11] MEDS: LEVOTHYROXINE SODIUM 50 MCG TABLET PO SCH (05:57)
[2021-05-11] MEDS: BUDESONIDE/FORMOTEROL FUMARATE 80/4.5 60 PUFFS/INHALER INH SCH ×2 (08:12→20:58)
[2021-05-11] MEDS: dexAMETHasone 10 MG in SYRINGE 0 ML IV SCH (08:12)
[2021-05-11] MEDS: PANTOprazole 40 MG in SYRINGE 0 ML IV SCH ×2 (08:12→20:59)
[2021-05-11] MEDS: INSULIN HUMAN NPH SC SCH (08:13)
[2021-05-11] MEDS: ISOSORBIDE MONO EXTENDED REL 30 MG TABCR PO SCH (08:14)
[2021-05-11] MEDS: DOCUSATE SODIUM 100 MG CAP PO SCH ×3 (08:14→20:59)
[2021-05-11] MEDS: FINASTERIDE 5 MG TAB PO SCH (08:14)
[2021-05-11] MEDS: ASPIRIN 81 MG ECTAB PO SCH (08:14)
[2021-05-11] MEDS: FENOFIBRATE NANOCRYSTALLIZED 48 MG TABLET PO SCH (08:14)
[2021-05-11] MEDS: OMEGA-3 (PURIFIED FISH OIL) 1 GM CAP PO SCH (08:14)
[2021-05-11] MEDS: TAMSULOSIN HCL 0.4 MG CAP PO SCH (08:14)
[2021-05-11] MEDS: INSULIN ASPART PER UNIT SC SCH ×4 (08:17→21:21)
--- NOTE | 2021-05-11 12:53 | Pharmacy Report ---
Pharmacy Glycemic Short Note 2 - Date of Service May 11, 2021 - Glycemic Short BSG Results (Last 24 hours): 05/10/21 05/10/21 05/11/21 16:53 21:05 08:05 POC Glucose 140 H 118 H 144 H 05/11/21 12:38 POC Glucose 209 H OUTPATIENT ANTIDIABETIC REGIMEN: * Trulicity SQ on Fridays * Amaryl 4mg PO QAM * Pioglitzaone 30mg PO QAM * A1c = 10.3% on 04/29/21 ASSESSMENT: 05/11: * BSGs reasonably well controlled yesterday with the exception of pre-lunch hyperglycemia * Fasting BSG 144 this AM w/ 20 units NPH administered yesterday, will continue the same and dose w/ AM dexamethasone IV * Today's pre-lunch BSG was checked after eating, thus likely to have been at goal if check prior to meal. Will continue current Novolog orders for now. 05/10: * Fasting BSG 79 mg/dL today, despite no HS novolog coverage. Although NPH typically would not affect fasting BSG, it can sometimes occur. Will reduce NPH dose by ~20%. * Post prandial BSG elevations today likely somewhat due to increased number of carbs per meal. * Patient remains on IV dexamethasone PLAN FOR INPATIENT GLYCEMIC CONTROL: * Hold outpatient diabetes medications * Basal insulin * hold Lantus * NPH 20 units SQ daily with dexamethasone * Bolus insulin: * NovoLog per scale ACHS or Q6hrs while NPO * Goal Range: Low 90 mg/dL - High 140 mg/dL * Correction Factor: 10 mg/dL/unit with meals (50mg/dL/unit HS) * Nutritional / Prandial insulin per carb ratio of 1 unit per 1.5 grams CHO consumed with breakfast/lunch; 2.5 grams at dinner (no carb coverage for HS) * Reassess insulin doses with each change in steroid dose / route. 05/12 may be final day of dexamethasone. PLAN FOR DISCHARGE: * TBD, but patient will likely require insulin at dc based on A1c > 10%
--- NOTE | 2021-05-11 15:40 | Hospitalist Progress Note ---
Date of Service May 11, 2021 Assessment & Plan (1) Acute respiratory failure: Plan: 2/2 covid pneumonia (2) Pneumonia due to 2019 novel coronavirus: Plan: Tested positive for SARS COV2 - 04/26/21. Sx have been ongoing and worsening for ~ 3 weeks. aggressive pulmonary toilet with duonebs, ISP, Flutter valve, self proning- declines to prone Does not meet criteria for remdesivir given duration of symptoms Has been receiving IV dexamethsone CRP initially improving, but now up at 11 Continue supplemental oxygen-high flow nasal cannula plus or minus BiPAP Evaluated by ICU on 05/02 for possible intubation as patient states he is getting tired. No indication yet for intubation per ICU team. Pt moved to ICU capable room for closer monitoring. Pulmonary/ ICU following and no indication to give Tocilizumab and/or baricitinib Has been receiving intravenous Lasix and maintained on negative balance with frequent monitoring of PRP He has been feeling much better today and his creatinine has gone up to 1.8 He received Lasix 40 mg yesterday He has been feeling much better and is requiring 2 to 4 L of oxygen to maintain saturation He will not get any more Lasix and will check PRP tomorrow Plan to do a to a stable O2 saturation test tomorrow and possible discharge following that PER CONVERSATION WITH HIM ON 04/30, HE IS A FULL CODE AND OK WITH TRACH IF IT EVER CAME TO THAT. (3) Sepsis: Plan: Secondary to COVID-19 virus infection Pt met Sepsis criteria 2/2 tachycardia and fever in setting of known covid-19 infection. Blood and urine cultures negative to date (4) Accelerated essential hypertension: Plan: Patient was on amlodipine, lisinopril and torsemide at home. Norvasc was resumed, the lisinopril is still held resumed Imdur and hydralazine IV Lasix per pulmonary monitor blood pressure closely. Blood pressure is maintained (5) Elevated troponin: Plan: Likely demand ischemia in setting of acute illness No ST t wave changes, or chest pain (6) Acute renal failure superimposed on stage 3b chronic kidney disease: Plan: Acute on chronic CKD 3 baseline cr 1.7-1.8 follows [facility] [place] nephro avoid nephrotoxic agents, holding lisinopril Creatinine is 1.72 as of 05/09/2021-we will give another dose of Lasix of 40 mg IV today Creatinine has gone up to 1.82 though it is within his baseline but will hold Lasix for today 05/10/2021 We will repeat PRP tomorrow (7) T2DM (type 2 diabetes mellitus): Plan: Glycemic pharmacist in setting of hyperglycemia and dexamethasone use at goal (8) Sleep apnea: Plan: CPAP qHS (9) Chronic obstructive pulmonary disease: Plan: Chornic, stable, cont Symbicort. (10) DVT prophylaxis: Plan: Heparin Full code Disposition-continue PCU monitoring with escalating oxygen needs Admission and Anticipated Discharge Date Admission Date: April 28, 2021 Subjective 05/09/2021 The patient was seen and examined in telemetry unit and in the Covid room He remained stable and has been on CPAP He cannot lie prone but he has been trying to lie on sides Denies any symptoms at rest 05/10/2021 The patient was seen and examined in telemetry unit and in the Covid room He has been feeling much better today and is saturating with high flow nasal cannula He has been communicating without any interaction 05/11/2021 The patient was seen and examined in telemetry unit and in the Covid room He has been feeling much better and requiring only about 4 L of oxygen to maintain saturation Denies any significant cough and/or chest pain Review of Systems Review of Systems: All systems reviewed negative except as indicated above. Respiratory: Minimal to no shortness of breath at rest Physical Exam Physical Exam: In bed with moderate distress due to shortness of breath Constitutional: well developed, well nourished, + ill appearing and + morbidly obese Eyes: PERRL, conjunctivae normal, anicteric sclerae ENMT: external ear and nose normal, oropharynx normal Neck: trachea midline, no thyromegaly Respiratory: + respiratory distress Auscultation: + diminished lung sounds and + crackles (Minimal crackles at the bases) Cardiovascular: Rate/Rhythm: regular rate and regular rhythm; not tachycardic Heart Sounds: normal S1 and normal S2; no murmur Extremities: + edema (1+ edema with chronic skin changes) Gastrointestinal (Abdomen): Inspection/Auscultation: + abdomen distended and normal bowel sounds Percussion/Palpation: abdomen soft; abdomen nontender Musculoskeletal: No acute arthritis in any joint Neurologic: Alert, awake and oriented x3 Lymphatic: no cervical or axillary lymphadenopathy Results & Data Results & Data ([facility]) Vital Signs (Past 12 Hours) Vital Signs Temp Pulse Pulse Resp BP Pulse Ox 05/11/21 13:11 92 05/11/21 11:25 36.7 C 75 18 137/73 96 05/11/21 07:48 92 05/11/21 07:46 81 18 91 05/11/21 07:30 71 05/11/21 07:16 36.7 C 72 20 155/66 H 93 05/11/21 03:53 36.6 C 63 24 148/78 H 91 Medications Administered Current Inpatient Medications Acetaminophen (Acetaminophen 325 Mg Tab) 650 mg PO Q4H PRN PRN Reason: Pain or Fever Stop: 05/28/21 14:53 Last Admin: 05/10/21 21:09 Dose: 650 mg Documented by: Al Hydrox/Mg Hydrox/Simethicone (Aluminum/Magnesium Susp 30 Ml Udc) 15 ml PO Q4H PRN PRN Reason: Dyspepsia Stop: 05/28/21 14:53 Albuterol (Albuterol Hfa 8 Gm Inhaler) 2 puffs INH Q4 PRN PRN Reason: sob,cough or wheeze Stop: 05/28/21 14:53 Last Admin: 05/02/21 19:47 Dose: 2 puffs Documented by: Amlodipine Besylate (Amlodipine Besylate 5 Mg Tab) 5 mg PO [facility] Stop: 05/28/21 20:59 Last Admin: 05/10/21 21:12 Dose: 5 mg Documented by: Aspirin (Aspirin 81 Mg Ectab) 81 mg PO QAM [facility] Stop: 05/29/21 08:59 Last Admin: 05/11/21 08:14 Dose: 81 mg Documented by: Atorvastatin Calcium (Atorvastatin 40 Mg Tab) 40 mg PO [facility] Stop: 05/28/21 20:59 Last Admin: 05/10/21 21:12 Dose: 40 mg Documented by: Budesonide/Formoterol Fumarate (Budesonide/Formoterol Fumarate 80/4.5 60 Puffs/Inhaler) 2 puffs INH BID [facility] Stop: 06/01/21 22:59 Last Admin: 05/11/21 08:12 Dose: 2 puffs Documented by: Dextrose (Dextrose 50% 50 Ml Syringe) 25 - 50 ml IV UD PRN; Protocol PRN Reason: Hypoglycemia Protocol Stop: 05/28/21 14:53 Docusate Sodium (Docusate Sodium 100 Mg Cap) 100 mg PO BID [facility] Stop: 06/04/21 20:59 Last Admin: 05/11/21 08:24 Dose: Not Given Documented by: Fenofibrate (Fenofibrate Nanocrystallized 48 Mg Tablet) 48 mg PO DAILY [facility] Stop: 05/29/21 08:59 Last Admin: 05/11/21 08:14 Dose: 48 mg Documented by: Finasteride (Finasteride 5 Mg Tab) 5 mg PO QAM [facility] Stop: 05/29/21 08:59 Last Admin: 05/11/21 08:14 Dose: 5 mg Documented by: Fish Oil ([place]-3 (Purified Fish Oil) 1 Gm Cap) 1 gm PO QAM [facility] Stop: 05/29/21 08:59 Last Admin: 05/11/21 08:14 Dose: 1 gm Documented by: Furosemide (Furosemide 40 Mg/4 Ml Vial) 40 mg IV DAILY [facility] Stop: 06/04/21 08:59 Last Admin: 05/07/21 08:53 Dose: 40 mg Documented by: Glucagon (Glucagon For Inj 1 Mg Vial) 1 mg SQ UD PRN; Protocol PRN Reason: Hypoglycemia Protocol Stop: 05/28/21 14:53 Glucose (Glucose 10 Tabs/Tube) 4 - 8 tabs PO UD PRN; Protocol PRN Reason: Hypoglycemia Protocol Stop: 05/28/21 14:53 Glucose (Glucose 40% Gel 15 Gm Tube) 15 - 30 gm PO UD PRN; Protocol PRN Reason: Hypoglycemia Protocol Stop: 05/28/21 14:53 Heparin Sodium (Porcine) (Heparin Sod 5,000 Unit/0.5 Ml Vial) 7,500 units SQ Q8 [facility] Stop: 05/29/21 21:59 Last Admin: 05/11/21 14:26 Dose: 7,500 units Documented by: Hydralazine HCl (Hydralazine Hcl 25 Mg Tab) 25 mg PO Q6H [facility] Stop: 06/02/21 10:14 Last Admin: 05/11/21 11:30 Dose: Not Given Documented by: Dexamethasone 10 mg/ Syringe 2.5 mls @ 1 mls/min IV DAILY [facility] Stop: 05/12/21 09:03 Last Admin: 05/11/21 08:12 Dose: 1 mls/min Documented by: Pantoprazole Sodium 40 mg/ (Syringe) 10 mls @ 5 mls/min IV BID [facility] Stop: 06/02/21 08:59 Last Admin: 05/11/21 08:12 Dose: 5 mls/min Documented by: Insulin Aspart (Insulin Aspart Per Unit) 0 units SC HS [facility]; Protocol Stop: 06/05/21 20:59 Last Admin: 05/10/21 21:13 Dose: Not Given Documented by: Insulin Aspart (Insulin Aspart Per Unit) 0 units SC BID@0730,1130 [facility]; Protocol Stop: 06/06/21 07:29 Last Admin: 05/11/21 12:46 Dose: 54 units Documented by: Insulin Aspart (Insulin Aspart Per Unit) 0 units SC DAILY@1630 [facility]; Protocol Stop: 06/06/21 16:29 Last Admin: 05/10/21 17:16 Dose: 34 units Documented by: Insulin Human NPH (Insulin Human Nph) 20 units SC DAILY [facility] Stop: 06/09/21 08:59 Last Admin: 05/11/21 08:13 Dose: 20 units Documented by: Isosorbide Mononitrate (Isosorbide [place] Extended Rel 30 Mg Tabcr) 30 mg PO QAM [facility] Stop: 06/02/21 10:14 Last Admin: 05/11/21 08:14 Dose: 30 mg Documented by: Levothyroxine Sodium (Levothyroxine Sodium 50 Mcg Tablet) 50 mcg PO DAILYBB [facility] Stop: 05/29/21 06:29 Last Admin: 05/11/21 05:57 Dose: 50 mcg Documented by: Magnesium Hydroxide (Magnesium Hydroxide Susp 30 Ml Udc) 30 ml PO Q12H PRN PRN Reason: Constipation Stop: 05/28/21 14:53 Miscellaneous (Carbohydrates For Hypoglycemia ) 15 - 30 gm PO UD PRN PRN Reason: Hypoglycemia Protocol Stop: 05/28/21 14:53 Last Admin: 05/06/21 20:49 Dose: 30 gm Documented by: Miscellaneous Information (Pharmacy Glycemic Mgmt Consult) 1 ea N/A UD PRN PRN Reason: Consult Stop: 05/29/21 12:21 Ondansetron HCl (Ondansetron Inj 2 Mg/Ml 2 Ml Vial) 4 mg IV Q6H PRN PRN Reason: Nausea Stop: 05/28/21 14:53 Polyethylene Glycol (Polyethylene (Miralax) 17 Gm Pack) 17 gm PO DAILY PRN PRN Reason: Constipation Stop: 05/28/21 14:53 Last Admin: 05/06/21 12:19 Dose: 17 gm Documented by: Tamsulosin HCl (Tamsulosin Hcl 0.4 Mg Cap) 0.4 mg PO QAM [facility] Stop: 05/29/21 08:59 Last Admin: 05/11/21 08:14 Dose: 0.4 mg Documented by: Tramadol HCl (Tramadol Hcl 50 Mg Tablet) 50 mg PO Q8 PRN PRN Reason: Pain Stop: 05/28/21 14:53 Last Admin: 05/10/21 21:09 Dose: 50 mg Documented by:
[2021-05-11] MEDS: ATORVASTATIN 40 MG TAB PO SCH (20:58)
[2021-05-11] MEDS: amLODIPine BESYLATE 5 MG TAB PO SCH (20:58)
[2021-05-11] MEDS: traMADol HCL 50 MG TABLET PO PRN (20:59)
[2021-05-11] MEDS: ACETAMINOPHEN 325 MG TAB PO PRN (21:00)
[2021-05-12] MEDS: HEPARIN SOD 5,000 UNIT/0.5 ML VIAL SQ SCH ×2 (04:59→14:58)
[2021-05-12] MEDS: hydrALAZINE HCL 25 MG TAB PO SCH ×3 (05:00→15:35)
[2021-05-12] MEDS: LEVOTHYROXINE SODIUM 50 MCG TABLET PO SCH (05:43)
[2021-05-12 07:38] LABS: Hematocrit (blood only) 40.8 % (42-52); Hemoglobin 13.6 g/dL (14.0-18.0); Mean Corpuscular Hemoglobin 31.3 pg (25-34); Mean Corpuscular Hgb Conc 33.3 g/dL (32-36); Mean Platelet Volume 10.9 fL (7.4-10.4); Nucleated RBC # (auto) 0.14 K/uL (0-0); Nucleated RBC % (auto) 0.9 %; Platelet Count 200 K/uL (130-400); RDW Coefficient of Variation 13.4 % (11.5-14.5); RDW Standard Deviation 46.1 fL (36.4-46.3); Red Blood Count 4.34 M/uL (4.7-6.1); White Blood Count 15.16 K/uL (4.8-10.8)
[2021-05-12 08:02] LABS: Basophils # (auto) 0.05 K/uL (0-0.2); Basophils % (auto) 0.3 %; Eosinophils # (auto) 0.02 K/uL (0-0.5); Eosinophils % (auto) 0.1 %; Immature Granulocytes # (auto) 1.08 K/uL (0.00-0.02); Immature Granulocytes % (auto) 7.1 %; Lymphocytes % (auto) 18.5 %; Monocytes # (auto) 0.88 K/uL (0.11-0.59); Monocytes % (auto) 5.8 %; Neutrophils # (auto) 10.33 K/uL (1.4-6.5); Neutrophils % (auto) 68.2 %
[2021-05-12 08:16] LABS: BUN Creatinine Ratio 26.2 (10-20); Calcium 8.9 mg/dl (8.5-10.1); Creatinine Clr Calc Pharmacy 60.9 ml/min; Est GFR (African American) 49.7 ml/min; Est GFR (Non-African American) 42.9 ml/min; Potassium 4.6 mmol/L (3.5-5.1)
[2021-05-12] MEDS: TAMSULOSIN HCL 0.4 MG CAP PO SCH (08:22)
[2021-05-12] MEDS: FINASTERIDE 5 MG TAB PO SCH (08:22)
[2021-05-12] MEDS: ISOSORBIDE MONO EXTENDED REL 30 MG TABCR PO SCH (08:22)
[2021-05-12] MEDS: FENOFIBRATE NANOCRYSTALLIZED 48 MG TABLET PO SCH (08:22)
[2021-05-12] MEDS: OMEGA-3 (PURIFIED FISH OIL) 1 GM CAP PO SCH (08:22)
[2021-05-12] MEDS: DOCUSATE SODIUM 100 MG CAP PO SCH (08:24)
[2021-05-12] MEDS: BUDESONIDE/FORMOTEROL FUMARATE 80/4.5 60 PUFFS/INHALER INH SCH (08:24)
[2021-05-12] MEDS: ASPIRIN 81 MG ECTAB PO SCH (08:26)
[2021-05-12] MEDS: INSULIN ASPART PER UNIT SC SCH ×3 (08:28→17:27)
[2021-05-12] MEDS: INSULIN HUMAN NPH SC SCH (08:37)
[2021-05-12] MEDS: PANTOprazole 40 MG in SYRINGE 0 ML IV SCH (08:39)
[2021-05-12] MEDS: dexAMETHasone 10 MG in SYRINGE 0 ML IV SCH (08:40)
--- NOTE | 2021-05-12 11:45 | Pharmacy Report ---
Pharmacy Glycemic Short Note 2 - Date of Service May 12, 2021 - Glycemic Short BSG Results (Last 24 hours): 05/11/21 05/11/21 05/11/21 12:38 16:36 20:01 Glucose POC Glucose 209 H 167 H 129 H 05/12/21 05/12/21 05/12/21 06:45 07:22 11:18 Glucose 134 H POC Glucose 140 H 298 H 05/12/21 05/12/21 11:20 11:35 Glucose POC Glucose 293 H 292 H OUTPATIENT ANTIDIABETIC REGIMEN: * Trulicity SQ on Fridays * Amaryl 4mg PO QAM * Pioglitzaone 30mg PO QAM * A1c = 10.3% on 04/29/21 ASSESSMENT: 05/12: * BSGs well controlled ove3r last 24 hrs. Will continue the same NPH and No volog orders today. * Dexamethasone IV will stop after today's dose unless reordered. Plan to convert patient from NPH to Lantus tomorrow AM. Plan to reduce Novolog correctional and prandial doses tomorrow as well. 05/11: * BSGs reasonably well controlled yesterday with the exception of pre-lunch hyperglycemia * Fasting BSG 144 this AM w/ 20 units NPH administered yesterday, will continue the same and dose w/ AM dexamethasone IV * Today's pre-lunch BSG was checked after eating, thus likely to have been at goal if check prior to meal. Will continue current Novolog orders for now. 05/10: * Fasting BSG 79 mg/dL today, despite no HS novolog coverage. Although NPH typically would not affect fasting BSG, it can sometimes occur. Will reduce NPH dose by ~20%. * Post prandial BSG elevations today likely somewhat due to increased number of carbs per meal. * Patient remains on IV dexamethasone PLAN FOR INPATIENT GLYCEMIC CONTROL: * Hold outpatient diabetes medications * Basal insulin * NPH 20 units SQ daily with dexamethasone * Begin Lantus 20 units SQ daily in the AM 05/13 * Bolus insulin: * NovoLog per scale ACHS or Q6hrs while NPO * Goal Range: Low 90 mg/dL - High 140 mg/dL * Correction Factor: 10 mg/dL/unit with meals (50mg/dL/unit HS) --> change to 15mg/dL/unit on 05/13 * Nutritional / Prandial insulin per carb ratio of 1 unit per 1.5 grams CHO consumed with breakfast/lunch; 2.5 grams at dinner (no carb coverage for HS) --> convert to 1 unit per 4gm CHO consumed starting 05/13 * Reassess insulin doses with each change in steroid dose / route. 05/12 may be final day of dexamethasone. PLAN FOR DISCHARGE: * TBD, but patient will likely require insulin at dc based on A1c > 10%
--- NOTE | 2021-05-12 13:20 | Hospitalist Progress Note ---
Date of Service May 12, 2021 Assessment & Plan (1) Acute respiratory failure: Plan: 2/2 covid pneumonia (2) Pneumonia due to 2019 novel coronavirus: Plan: Multifocal COVID-19 pneumonia Tested positive for SARS COV2 - 04/26/21. --CXR:Multifocal airspace opacities are seen throughout both lungs with a lower lobe predominance. Differential considerations include pulmonary edema and/or multifocal pneumonia. Clinical correlation will be required and radiographic follow-up to resolution is recommended. Does not meet criteria for remdesivir given onset of symptoms as per prior prov ider No indication for Tocilizumab and/or baricitinib per prior providers Completed IV dexamethasone course CRP 11 Procalcitonin 0.13 Pulmonary hygiene Lasix as needed 2 step: Needs 2 L of supplemental oxygen at rest and 5 L with activity Encouraged frequent proning (3) Sepsis: Plan: Secondary to COVID-19 virus infection Blood cultures negative (4) Accelerated essential hypertension: Plan: Continue amlodipine Resume lisinopril at reduced dose 20 mg daily Also started on hydralazine Advised further adjustment of medications as outpatient per PCP (5) Elevated troponin: Plan: Likely demand ischemia in setting of acute illness No ST t wave changes, or chest pain (6) Acute renal failure superimposed on stage 3b chronic kidney disease: Plan: Acute on chronic CKD III baseline cr 1.7-1.8 Follows [facility] [place] nephro Avoid nephrotoxic agents Cr at baseline today (7) T2DM (type 2 diabetes mellitus): Plan: Continue Insulin therapy while hospitalized Glycemic pharmacist on board (8) Sleep apnea: Plan: CPAP qHS (9) Chronic obstructive pulmonary disease: Plan: Chornic, stable, cont Symbicort. (10) DVT prophylaxis: Plan: Heparin SQ Code Status Full code Admission and Anticipated Discharge Date Admission Date: April 28, 2021 Subjective Patient is seen and examined at bedside Reports minimal cough Offers no other complaints Had 2 step earlier today Denies any chest pain, dyspnea, dizziness, nausea, abd pain Review of Systems Review of Systems: All systems reviewed & are unremarkable except as noted in Subjective Physical Exam Physical Exam: Physical Exam: Vitals signs as noted above General Appearance:Morbidly Obese, no apparent distress Head: normocephalic, Atraumatic Eyes: normal inspection, EOMI Neck: supple, Trachea midline Respiratory/Chest: Decreased breath sounds, CTA Cardiovascular: S1, S2, No murmur Abdomen/GI:Soft, Non tender, Bowel sounds present Extremities/Musculoskeletal:normal inspection, 1-2+ B/L LE edema Neurologic/Psych:AAOX3, grossly no focal neurological deficits Skin: normal color, warm Results & Data Results & Data ([facility]) Vital Signs (Past 12 Hours) Vital Signs Temp Pulse Pulse Pulse Pulse Pulse Pulse 05/12/21 11:21 36.6 C 85 05/12/21 10:56 82 95 H 97 H 89 05/12/21 10:39 05/12/21 07:46 57 L 05/12/21 07:16 36.2 C L 71 05/12/21 03:08 36.6 C 74 Pulse Pulse Resp Resp Resp Resp Resp 05/12/21 11:21 20 05/12/21 10:56 92 H 79 20 22 22 20 05/12/21 10:39 05/12/21 07:46 05/12/21 07:16 18 05/12/21 03:08 17 Resp Resp BP Pulse Ox Pulse Ox Pulse Ox Pulse Ox 05/12/21 11:21 149/80 H 89 L 05/12/21 10:56 22 20 91 86 L 86 L 05/12/21 10:39 05/12/21 07:46 05/12/21 07:16 160/79 H 92 05/12/21 03:08 140/75 90 Pulse Ox Pulse Ox Pulse Ox Pulse Ox Pulse Ox Pulse Ox 05/12/21 11:21 05/12/21 10:56 92 85 L 86 L 05/12/21 10:39 91 92 90 05/12/21 07:46 05/12/21 07:16 05/12/21 03:08 Laboratory Results Short CBC 05/12/21 Range/Units 06:45 WBC 15.16 H (4.8-10.8) K/uL Hgb 13.6 L (14.0-18.0) g/dL Hct 40.8 L (42-52) % Plt Count 200 (130-400) K/uL BMP 05/12/21 06:45 Sodium 139 Potassium 4.6 Chloride 107 Carbon Dioxide 27 BUN 44 H Creatinine 1.67 H Glucose 134 H Calcium 8.9
--- NOTE | 2021-05-12 15:40 | Discharge Summary ---
Date of Service May 12, 2021 Admission HPI Per Admitting Provider This is a 65-year-old male who has significant past medical history of T2DM, COPD, HTN, HLD, fatty liver, ROWDY on CPAP, CKD stage IIIb with baseline creatinine 1.7-1.8 who presents to ED due to worsening shortness of breath x2 days.Of significance patient has been suffering from URI symptoms for the past 3 weeks. He was seen in clinic On 04/26 due to symptoms now, "going to his chest," and he tested positive for the novel coronavirus. He is unvaccinated.He further complains of fever, fatigue, poor appetite, poor intake, productive cough with purulent sputum and symptoms overall getting worse. When in clinic he was prescribed oral prednisone and doxycycline.In ED patient was found to be hypoxic at 86% on room air. He is currently requiring 4 L of oxygen to maintain saturation. He is otherwise hemodynamically stable but he does meet sepsis criteria secondary to fever and tachycardia.His chest x-ray is consistent with multifocal pneumonia. He does have mildly elevated troponin at 0.058 EKG is consistent with sinus tachycardia without ST or T wave changes. He denies any lightheadedness, dizziness, chest pain, palpitations, hemoptysis, nausea, vomiting, abdominal pain, change in bowel or urinary habits. He did receive 10 mg IV dexamethasone. He is also significantly hyperglycemic and was ordered 8 units of IV regular insulin. Admission Exam Per Admitting Provider Chief Complaint: Worsening SOB x 2 days. Primary Care Provider: Max Rosario MD This is a 65-year-old male who has significant past medical history of T2DM, COPD, HTN, HLD, fatty liver, ROWDY on CPAP, CKD stage IIIb with baseline creatinine 1.7-1.8 who presents to ED due to worsening shortness of breath x2 days.Of significance patient has been suffering from URI symptoms for the past 3 weeks. He was seen in clinic On 04/26 due to symptoms now, "going to his chest," and he tested positive for the novel coronavirus. He is unvaccinated.He further complains of fever, fatigue, poor appetite, poor intake, productive cough with purulent sputum and symptoms overall getting worse. When in clinic he was prescribed oral prednisone and doxycycline.In ED patient was found to be hypoxic at 86% on room air. He is currently requiring 4 L of oxygen to maintain saturation. He is otherwise hemodynamically stable but he does meet sepsis criteria secondary to fever and tachycardia.His chest x-ray is consistent with multifocal pneumonia. He does have mildly elevated troponin at 0.058 EKG is consistent with sinus tachycardia without ST or T wave changes. He denies any lightheadedness, dizziness, chest pain, palpitations, hemoptysis, nausea, vomiting, abdominal pain, change in bowel or urinary habits. He did receive 10 mg IV dexamethasone. He is also significantly hyperglycemic and was ordered 8 units of IV regular insulin. Allergies Principal Diagnosis Multifocal COVID-19 pneumonia Sepsis Acute respiratory failure with hypoxia Acute kidney injury Hypertension Discharge Data Allergies Allergy/AdvReac Type Severity Reaction Status Date / Time atenolol Allergy Intermediate turns Verified 02/19/21 01:42 bright yellow Consultations 04/28/21 10:06 ED Decision to Admit Stat 05/02/21 12:52 Consult Psychiatric Np Routine Ordered Studies 05/03/21 12:46 US venous doppler LE Routine Diabetes Follow up Diabetes Follow-up Needed for HgbA1c >9% Hospital Course (1) Acute respiratory failure: 2/2 covid pneumonia (2) Pneumonia due to 2019 novel coronavirus: Multifocal COVID-19 pneumonia Tested positive for SARS COV2 - 04/26/21. --CXR:Multifocal airspace opacities are seen throughout both lungs with a lower lobe predominance. Differential considerations include pulmonary edema and/or multifocal pneumonia. Clinical correlation will be required and radiographic follow-up to resolution is recommended. Does not meet criteria for remdesivir given onset of symptoms as per prior provider No indication for Tocilizumab and/or baricitinib per prior providers Completed IV dexamethasone course CRP 11 Procalcitonin 0.13 Pulmonary hygiene Lasix as needed 2 step: Needs 2 L of supplemental oxygen at rest and 5 L with activity Encouraged frequent proning (3) Sepsis: Secondary to COVID-19 virus infection Blood cultures negative (4) Accelerated essential hypertension: Continue amlodipine Resume lisinopril at reduced dose 20 mg daily Also started on hydralazine Advised further adjustment of medications as outpatient per PCP (5) Elevated troponin: Likely demand ischemia in setting of acute illness No ST t wave changes, or chest pain (6) Acute renal failure superimposed on stage 3b chronic kidney disease: Acute on chronic CKD III baseline cr 1.7-1.8 Follows [facility] nephro Avoid nephrotoxic agents Cr at baseline today (7) T2DM (type 2 diabetes mellitus): Continue Insulin therapy while hospitalized Glycemic pharmacist on board (8) Sleep apnea: CPAP qHS (9) Chronic obstructive pulmonary disease: Chornic, stable, cont Symbicort. (10) DVT prophylaxis: Heparin SQ Code Status Full code Total Time Total Time Spent Total Time Spent (In Minutes): 43 minutes Discharge Plan Discharge Items Patient Disposition: Home - Self-Care Reason For Visit: COVID PNA Discharge Diagnosis: Multifocal COVID-19 pneumonia Sepsis Acute respiratory failure with hypoxia Acute kidney injury Hypertension Activity: Per Instructions section Exercise/Sports: Wait until after follow-up appointment Non-emergency contact: Primary Care Provider Call non-emergency contact if: you have any medication questions, your symptoms worsen, your pain is concerning for you and you have a fever Follow-up/Referrals: Max Rosario MD [Primary Care Provider] - (Date & Time 05/20/2021 11:20 AM Provider Max Rosario MD [facility] ) Diet: Carb Consistent or DM2 and Heart Healthy Addtl Attending Provider Instructions: Follow-up with your primary care physician on 05/20/2021 11:20 AM ----Use supplemental oxygen via nasal cannula 2 L at rest and 5 L with activity as advised. --- Check your blood pressure regularly at home and discuss with your primary care physician for further adjustment of your blood pressure medications as needed --- Also discussed with your physician for further adjustment of your medications regarding diabetes management. Seek immediate medical attention if your symptoms reoccur or worsen Please take all medications as instructed on discharge list below. Please call if you have any questions or problems. You can reach a [facility] hospitalist on duty at [facility] 24 hours a day by calling [phone] Coronavirus disease 2019 (COVID-19) is a virus that causes a respiratory illness. It is caused by a coronavirus called 2019 novel coronavirus (2019- nCoV). There are many types of coronavirus. Coronaviruses are a very common cause of bronchitis. They may sometimes cause lung infection(pneumonia). Symptoms can range from mild to severe respiratory illness. These viruses are also foundin some animals. COVID-19 was first found in people in [place], [place], in late 2019. In 2020, several cases of COVID-19 have been confirmed in the [place] Public health officials are working to find the source. How the virus spreads is not yet fully known. It may be spread through droplets of fluid that a person coughs or sneezes into the air. It may be spread if you touch a surface with virus on it, such as a handle or object, and then touch your mouth. What are the symptoms of COVID-19? Some people have no symptoms or mild symptoms. Symptoms may appear 2 to 14 days after contact with the virus. Symptoms can include: Fever Coughing Trouble breathing What are possible complications from COVID-19? In many cases, this virus can cause infection (pneumonia) in both lungs. In some cases, this can cause . How is COVID-19 diagnosed? Your healthcare provider will ask about your symptoms. He or she will also ask about your recent travel and contact with sick people. Testing for the virus is only done through the [facility]. If yourhealthcare provider thinks you may have COVID- 19, he or she will work with your local health department and the CDC on testing. Follow all instructions from your healthcare provider. COVID-19 is diagnosed by: Nasal and throat swab. A cotton-tipped swab is wiped inside your nose or throat. This is done to check for viruses in your nasal mucus. Sputum culture. A small sample of mucus coughed from your lungs (sputum) is co llected if you have a cough. It is checked for the virus. How is COVID-19 treated? There is currently no medicine to treat the virus. Treatment is done to help yo ur body while it fights the virus. This is known as supportive care. Supportive care may include: Pain medicine. These include acetaminophen and ibuprofen. They are used to help ease pain and reduce fever. Bed rest. This helps your body fight the illness. For severe illness, you may need to stay in the hospital. Care during severe illness may include: IV (intravenous) fluids.These are given through a vein to help keep your body hydrated. Oxygen. Supplemental oxygen or ventilation with a breathing machine (ventilator) may be given. This is done to keep enough oxygen in your body. Are you at risk for COVID-19? If youve been to a place where people have been sick with this virus, you are at risk for infection. You are at risk if you: Recently traveled to an affected area Had contact with a sick person who recently traveled to this area Had contact with a person who was diagnosed with COVID-19 How can COVID-19 be prevented? There is no vaccine yet. The best prevention is to not have contact with the virus. The CDC advises that people should not travel to areas where there are COVID-19 outbreaks right now for any reason that is not urgent. To help prevent spreading the infection, wash your hands often, or use an alcohol-basedhand in service coordinator. If you are in an area with COVID-19: Wash your hands often. Or use an alcohol-based hand in service coordinator often. Only touch your eyes, nose, or mouth with clean hands. Dont have contact with people who are sick. Follow local instructions about being in public. For example, you may be told to not use public transport for a period of time. Stay away from markets that have live or animals. Wash your hands after touching any animals. Don't touch animals that may be sick. Dont share eating or drinking tools with sick people. Dont kiss someone who is sick. Clean surfaces often with disinfectant. If you were in an area with COVID-19 in the last 14 days: Call your healthcare provider. He or she can talk with local health staff to see what action may be needed. Follow all instructions from your provider. Take your temperature every morning and evening for at least 14 days. This is to check for fever. Keep a record of the readings. Keep watch for symptoms of the virus. Tell your provider right away if you have symptoms. If you were in an area with COVID-19 and have a fever or other symptoms: Dont panic. Keep in mind that other illnesses can cause similar symptoms. Stay away from work, school, and public places. Limit physical contact with family members. Don't kiss anyone or share eating or drinking utensils. Clean surfaces you touch with disinfectant. This is to help prevent the virus from spreading. Call your healthcare provider. Explain that you have been exposed to COVID-19 and have symptoms. Do this before going to any hospital. Wait for instructions. Keep in mind that healthcare staff may wear protective equipment such as masks, gowns, gloves, and eye protection. You may be put in a separate room. This is to prevent the possible virus from spreading. Tell the healthcare staff about recent travel. This includes local travel on public transport. Staff may need to find other people you have been in contact with. Follow all instructions the healthcare staff give you. If you have been diagnosed with COVID-19 Follow all instructions from your healthcare provider. Dont leave your home, except to get medical care. Call your healthcare providers office before going. They can prepare and give you instructions. This will help prevent the virus from spreading. Dont go to work, school, or public areas. Dont use public transport or taxis. Stay away from other people in your home. Have them wear face masks around you. Dont share household items or food. Wear a face mask if you can. This includes at home or in a medical facility. Cover your face with a tissue when you cough or sneeze. Throw the tissue away. Wash your hands. Wash your hands often. Caregivers should: Follow all instructions from healthcare staff. Wear a face mask and protective clothing as advised. Wash hands often. Keep track of the sick persons symptoms. Clean surfaces, fabrics, and laundry thoroughly. Keep other people away from the sick person. When to call your healthcare provider Call your healthcare provider: If youve recently traveled and have symptoms If you have been diagnosed with COVID-19 and your symptoms are worse To learn more To find out more about COVID-19, visit the CDC website at www.cdc.gov/coronavirus/2019-ncov/index.html. [employer]. [address] [place] [address]. All rights reserved. This information is not intended as a substitute for professional medical care. Always follow your healthcare professional's instructions. This information has been adapted from [employer] Home Isolation COVID-19 Instructions The following information about Home Isolation is from the CDC Website: https://www.cdc.gov/coronavirus/2019-ncov/hcp/lnitmdgt-kpnwicq-wzupxx.html Stay home except to get medical care People who are mildly ill with COVID-19 are able to isolate at home during their illness. You should restrict activities outside your home, except for getting medical care. Do not go to work, school, or public areas. Avoid using public transportation, ride-sharing, or taxis. Separate yourself from other people and animals in your home People: As much as possible, you should stay in a specific room and away from other people in your home. Also, you should use a separate bathroom, if available. Animals: You should restrict contact with pets and other animals while you are sick with COVID-19, just like you would around other people. Although there have not been reports of pets or other animals becoming sick with COVID-19, it is still recommended that people sick with COVID-19 limit contact with animals until more information is known about the virus. When possible, have another member of your household care for your animals while you are sick. If you are sick with COVID-19, avoid contact with your pet, including petting, snuggling, being kissed or licked, and sharing food. If you must care for your pet or be around animals while you are sick, wash your hands before and after you interact with pets and wear a face mask. Call ahead before visiting your doctor If you have a medical appointment, call the healthcare provider and tell them that you have or may have COVID-19. This will help the healthcare providers office take steps to keep other people from getting infected or exposed. Wear a face mask You should wear a face mask when you are around other people (e.g., sharing a room or vehicle) or pets and before you enter a healthcare providers office. If you are not able to wear a face mask (for example, because it causes trouble breathing), then people who live with you should not stay in the same room with you, or they should wear a face mask if they enter your room. Cover your coughs and sneezes Cover your mouth and nose with a tissue when you cough or sneeze. Throw used tissues in a lined trash can. Immediately wash your hands with soap and water for at least 20 seconds or, if soap and water are not available, clean your hands with an alcohol-based hand in service coordinator that contains at least 60% alcohol. Clean your hands often Wash your hands often with soap and water for at least 20 seconds, especially after blowing your nose, coughing, or sneezing; going to the bathroom; and before eating or preparing food. If soap and water are not readily available, use an alcohol-based hand in service coordinator with at least 60% alcohol, covering all surfaces of your hands and rubbing them together until they feel dry. Soap and water are the best option if hands are visibly dirty. Avoid touching your eyes, nose, and mouth with unwashed hands. Avoid sharing personal household items You should not share dishes, drinking glasses, cups, eating utensils, towels, or bedding with other people or pets in your home. After using these items, they should be washed thoroughly with soap and water. Clean all high-touch surfaces everyday High touch surfaces include counters, tabletops, doorknobs, bathroom fixtures, toilets, phones, keyboards, tablets, and bedside tables. Also, clean any surfaces that may have blood, stool, or body fluids on them. Use a household cleaning spray or wipe, according to the label instructions. Labels contain instructions for safe and effective use of the cleaning product including precautions you should take when applying the product, such as wearing gloves and making sure you have good ventilation during use of the product. Monitor your symptoms Seek prompt medical attention if your illness is worsening (e.g., difficulty breathing).Beforeseeking care, call your healthcare provider and tell them that you have, or are being evaluated for, COVID-19. Put on a face mask before you enter the facility. These steps will help the healthcare providers office to keep other people in the office or waiting room from getting infected or exposed. Ask your healthcare provider to call the local or state health department. Persons who are placed under active monitoring or facilitated self- monitoring should follow instructions provided by their local health department or occupational health professionals, as appropriate. When working with your local health department check their available hours. If you have a medical emergency and need to call 911, notify the dispatch personnel that you have, or are being evaluated for COVID-19. If possible, put on a face mask before emergency medical services arrive. Discontinuing home isolation Patients with confirmed COVID-19 should remain under home isolation precautions until the risk of secondary transmission to others is thought to be low. The decision to discontinue home isolation precautions should be made on a [id number] basis, in consultation with healthcare providers and state and local health departments. Pending Studies at Discharge: No Stand-Alone Forms: My Sxbbm, Smoking Cessation Medications and DC Order Prescriptions: New hydralazine 25 mg Tablet 25 mg PO TID Qty: 90 RF: 0 pantoprazole 40 mg Tablet,Delayed Release (Dr/Ec) 40 mg PO DAILYBB Qty: 30 RF: 0 lisinopril 20 mg tablet 20 mg PO HS Qty: 30 RF: 0 Continued atorvastatin 40 mg Tablet 40 mg PO HS RF: 0 prednisone 20 mg Tablet 40 mg PO UD PRN (Reason: copd rescue kit) RF: 0 amlodipine 5 mg Tablet 5 mg PO HS RF: 0 aspirin 81 mg Tablet,Delayed Release (Dr/Ec) 81 mg PO QAM RF: 0 tramadol 50 mg Tablet 50 mg PO Q8 PRN (Reason: Pain) RF: 0 torsemide 100 mg Tablet 50 mg PO Q OTHER DAY RF: 0 Caverject 40 mcg Recon Soln 40 mcg INTRA-CAVERNOSAL UD PRN (Reason: Sexual Activity) RF: 0 tamsulosin 0.4 mg Capsule 0.4 mg PO QAM RF: 0 levothyroxine 50 mcg Tablet 50 mcg PO QAM RF: 0 glimepiride 4 mg Tablet 4 mg PO QAM RF: 0 albuterol sulfate 90 mcg/actuation Hfa Aerosol Inhaler 2 puff INHALATION Q4 PRN (Reason: sob,cough or wheeze) RF: 0 pioglitazone 30 mg Tablet 30 mg PO QAM RF: 0 finasteride 5 mg Tablet 5 mg PO QAM RF: 0 sildenafil (pulm.hypertension) [Revatio] 20 mg Tablet 40 - 60 mg PO UD MDD 1dose PRN (Reason: Sexual Activity) RF: 0 budesonide-formoterol 80-4.5 mcg/actuation Hfa Aerosol Inhaler 2 puff INHALATION BID RF: 0 omega 1-zov-itj-fish oil [Fish Oil] 60-90-500 mg Capsule 1 cap PO QAM RF: 0 Trulicity 1.5 mg/0.5 mL Pen Injector 1.5 mg SUBCUT WK RF: 0 testosterone cypionate 200 mg/mL Kit 200 mg IM .EVERY 14 DAYS RF: 0 fenofibrate 54 mg tablet 54 mg PO DAILY RF: 0 sodium chloride [Saline Mist] 0.65 % Aerosol,[place] 2 spray INTRANASAL UD PRN (Reason: Congestion) RF: 0 ascorbic acid (vitamin C) 1,000 mg Tablet 1 g PO DAILY RF: 0 Discontinued lisinopril 40 mg Tablet 40 mg PO HS RF: 0 doxycycline hyclate 100 mg capsule 100 mg PO BID RF: 0 Discharge Orders: Discharge Order (Routine); Ordered 05/12/21 Ordered By: Blu Herrera Admission Data Admit Date/Time: 04/28/21 10:17 Attending Provider: Blu Herrera Admit Provider: Evan Alexander Primary Care Provider: Max Rosario Other Providers: Evan Alexander ; Eder Alcaraz ; Shade Dolan
[2021-05-12] MEDS ORDERED: PANTOprazole 40 MG TAB PO SCH (21:00)
[2021-05-13] MEDS ORDERED: INSULIN ASPART PER UNIT SC SCH (07:30)
[2021-05-13] MEDS ORDERED: INSULIN GLARGINE SOLOSTAR 100 UNITS/ML 3 ML PEN SC SCH (09:00)
== END 2021-05-12 18:13 | disposition home or self-care (01) | DRG 871 ==
LOC: ED 08:50 → EDINP 10:17 → SUATTDRO 10:17 → 2S 14:46 → 2E 05-02 18:57